=== PATIENT | male | born 1950 | race Two or more races ===

== ENCOUNTER 2016-11-23 21:27 | Inpatient (IN) | payer MEDICARE, MEDICAID ==
[~2016-11-23] VITALS: Ht 165.1 cm; Wt 79.4 kg
[2016-11-23] MEDS ORDERED: Acetaminophen 650 MG SUPP RECTAL ONE (21:45)
[2016-11-23] MEDS ORDERED: NS 1000ml 2,200 ML IVLG ONE (21:45)
[2016-11-23 22:00] VITALS: BP 104/58
[2016-11-23 22:07] LABS: ABG ALLEN TEST POSITIVE; ABG BASE EXCESS 3.6; ABG PCO2 37.2 mmHg (35.0-45.0)
[2016-11-23 22:24] LABS: BASOPHILS % (AUTO) 0.6 % (0.0-2.0); EOSINOPHILS % (AUTO) 1.7 % (0.0-3.0); LYMPHOCYTES % (AUTO) 9.8 % (20.0-45.0); MEAN CORPUSCULAR HEMOGLOBIN 34.7 PG (27.0-31.0); MEAN CORPUSCULAR HGB CONC 33.7 G/DL (32.0-36.0); MEAN CORPUSCULAR VOLUME 103 FL (80-99); MEAN PLATELET VOLUME 7.1 FL (6.5-10.1); MONOCYTES % (AUTO) 4.7 % (1.0-10.0); NEUTROPHILS % (AUTO) 83.2 % (45.0-75.0); PLATELET COUNT 330 K/UL (150-450); RED BLOOD COUNT 3.84 M/UL (4.70-6.10); RED CELL DISTRIBUTION WIDTH 12.7 % (11.6-14.8); WHITE BLOOD COUNT 9.4 K/UL (4.8-10.8)
[2016-11-23 22:29] LABS: TROPONIN I < 0.30 ng/mL (<=0.30)
[2016-11-23] MEDS ORDERED: Piperacillin/Tazobactam 4.5 GM in NS 110 ML IVPB ONE (22:30)
[2016-11-23 22:31] LABS: INR 1.1 (0.9-1.1); PROTHROMBIN TIME 11.7 SEC (9.30-11.50)
[2016-11-23 22:32] LABS: ALANINE AMINOTRANSFERASE 20 U/L (3-41); ALBUMIN/GLOBULIN RATIO 0.5 (1.0-2.7); ANION GAP 13 (5-15); ASPARTATE AMINO TRANSFERASE 29 U/L (5-40); CALCIUM 7.9 mg/dL (8.6-10.2); CARBON DIOXIDE 28 mEQ/L (20-30); CHLORIDE 106 mEQ/L (98-107); CREATININE 0.8 mg/dL (0.7-1.2); GLOMERULAR FILTRATION RATE > 60 mL/min (>60); HEMOLYSIS 4; POTASSIUM 3.8 mEQ/L (3.4-4.9); SODIUM 147 mEQ/L (135-145); TOTAL PROTEIN 6.1 g/dL (6.6-8.7)
[2016-11-23 22:35] LABS: REFLEX LACTIC ACID YES OR NO YES
[2016-11-23 22:42] LABS: CKMB < 1.5 ng/mL (< 6.7)
[2016-11-23 22:47] LABS: APPEARANCE,URINE CLEAR; KETONES,URINE NEGATIVE (NEGATIVE); LEUKOCYTE ESTERASE ,URINE NEGATIVE (NEGATIVE); NITRITE,URINE NEGATIVE (NEGATIVE); PH,URINE 7 (4.5-8.0); PROTEIN,URINE 2+ (NEGATIVE); UROBILINOGEN,URINE 1 MG/DL (0.0-1.0)
[2016-11-23] MEDS ORDERED: Zosyn 4.5gm inj ONE (23:08)
[2016-11-23 23:17] LABS: BACTERIA,URINE FEW /HPF; SQUAMOUS EPITHELIAL CELL,UR FEW /LPF (NONE/OCC)
[2016-11-23] MEDS ORDERED: ARTIFICIAL TEA1 EAC3 OP (23:19)
[2016-11-23] MEDS ORDERED: NORVASC2.5 MG ORAL (23:19)
[2016-11-23] MEDS ORDERED: VENTOLIN HFA18 GM INH (23:19)
[2016-11-23 23:30] VITALS: BP 140/77
[2016-11-23] MEDS ORDERED: ARTIFICIAL TEAR15 M2 OP (23:43)
[2016-11-24] VITALS (7 sets, daily range): BP systolic 115–171; BP diastolic 65–89
--- NOTE | 2016-11-24 00:43 | Emergency Room Report ---
History of Present Illness General Chief Complaint: Dyspnea/Respdistress Source: EMS Present Illness HPI Is a 66-year-old male has multiple medical problem. He had a previous tracheostomy and G-tube placement. He resided in a skilled nursing. He present with fever and respiratory distress. Per EMS, he had a fever 105 and was hypoxic. They gave him breathing treatment and sent him here. Denies any trauma. Unable to get history from patient because is nonverbal. No other complaint. Allergies: Coded Allergies: No Known Allergies (Unverified , 11/23/16) Patient History Past Medical History: see triage record, old chart reviewed Past Surgical History: other Pertinent Family History: none Social History: Denies: smoking Immunizations: other Reviewed Nursing Documentation: PMH: Agreed, PSxH: Agreed Nursing Documentation-PMH Past Medical History: No History, Except For Hx Hypertension: Yes Hx Seizures: Yes - Epilepsy, post traumatic seizure Review of Systems Constitutional: Reports: weakness Eye: Denies: blurred vision, eye pain ENT: Denies: ear pain, nose congestion, throat swelling Respiratory: Reports: cough, shortness of breath Cardiovascular: Denies: chest pain, palpitations Gastrointestinal: Denies: abdominal pain, diarrhea, nausea, vomiting Musculoskeletal: Denies: back pain, joint pain Skin: Denies: rash Neurological: Denies: headache, numbness Endocrine: Denies: increased thirst, increased urine Hematologic/Lymphatic: Denies: easy bruising All Other Systems: limited - Secondary to condition Physical Exam Vital Signs Date Time Temp Pulse Resp B/P Pulse Ox O2 Delivery O2 Flow Rate FiO2 11/23/16 21:24 105.1 124 20 136/83 96 Non-Rebreather 15.0 vitals with fever and tachycardia Sp02 EP Interpretation: abnormal General Appearance: moderate distress, lethargic, Chronically Ill Head: normocephalic, atraumatic Eyes: bilateral eye EOMI, bilateral eye PERRL ENT: dry mucus membranes Neck: full range of motion, supple, no meningismus, other - Greenish thick discharge from stoma Respiratory: chest non-tender, respiratory distress, accessory muscle use, crackles Cardiovascular #1: regular rate, rhythm, no murmur Gastrointestinal: normal bowel sounds, non tender, no mass, no organomegaly, no bruit, non-distended, other - Gtube intact. site no redness. Musculoskeletal: back normal, other - contracted Psychiatric: mood/affect normal Skin: warm/dry Procedures Critical Care Time Critical Care Time Critical care is mandated in this patient who presented with severe sepsis secondary to pneumonia. Patient require my urgent intervention to attenuate the risks of metabolic collapse which may lead to cardiovascular collapse and . Critical care time is 35 minutes excluding any reportable procedure. Critical care time included evaluation, multiple reevaluation, looking at old charts, interpreting laboratory and diagnostic data, discussing case with patient and family and consultants, and charting. Medical Decision Making Diagnostic Impression: Primary Impression: Severe sepsis Additional Impressions: Pneumonia Qualified Codes: J18.9 - Pneumonia, unspecified organism Respiratory failure with hypoxia Qualified Codes: J96.21 - Acute and chronic respiratory failure with hypoxia UTI (urinary tract infection) Qualified Codes: N30.00 - Acute cystitis without hematuria Proteinuria Hyperglycemia due to type 2 diabetes mellitus Qualified Codes: E11.65 - Type 2 diabetes mellitus with hyperglycemia; Z79.4 - [facility] (current) use of insulin ER Course Patient presents with severe sepsis secondary to pneumonia. Potential aspiration. Probably some component of mucus plugging. Lactic acid improved after IV fluid. Mental status improving. Patient be admitted to telemetry. Other differentials included but not limited to ACS, PE, dissection, influenza name a few. Lab Results Impression past with elevated glucose and lactic acid EKG Diagnostic Results Rate: normal, tachycardiac Rhythm: NSR ST Segments: no acute changes Rhythm Strip Diag. Results EP Interpretation: yes Rate: 105 Rhythm: NSR, no PVC's, no ectopy Chest X-Ray Diagnostic Results EP Interpretation: Yes Findings: no effusion, no pneumothorax, other - rt sided opacification. Number of Views: 1 Last Vital Signs Date Time Temp Pulse Resp B/P Pulse Ox O2 Delivery O2 Flow Rate FiO2 11/23/16 22:37 101.6 11/23/16 22:00 109 38 Nasal Cannula 5.0 11/23/16 22:00 104/58 100 Status: improved Disposition: ADMITTED INPATIENT Condition: Serious Referrals: DEREJE CASTANO (PCP) REFUGIO CARTER M.D. Nov 24, 2016 00:43
[2016-11-24] MEDS ORDERED: CARBAMAZEP100 MG/5 M (03:34)
[2016-11-24] MEDS ORDERED: Zolpidem 5mg tab ORAL PRN (04:00)
[2016-11-24] MEDS ORDERED: Zosyn 3.375gm inj ONE (04:57)
[2016-11-24] MEDS ORDERED: Vancomycin 1gm inj IVPB ONE (04:57)
[2016-11-24] MEDS: Vancomycin 1250mg in D5W 275ml IVPB SCH ×2 (05:23→17:07)
[2016-11-24] MEDS ORDERED: Piperacillin/Tazobactam 3.375 GM in D5W 110 ML IVPB SCH ×2 (06:00→07:00)
[2016-11-24] MEDS: Albuterol 90mcg Inhaler 8gm INH SCH ×3 (06:00→18:00)
--- NOTE | 2016-11-24 08:41 | Consultation ---
Consult Note Consult Note dictated DEREJE CASTANO Nov 24, 2016 08:41
[2016-11-24] MEDS: Artificial Tears 1.4% Op Soln BOTH EYES SCH ×2 (09:00→21:59)
[2016-11-24] MEDS: Heparin 5000 units/ml inj SUBQ SCH ×2 (09:01→21:59)
[2016-11-24 09:37] LABS: BASOPHILS % (AUTO) 0.6 % (0.0-2.0); EOSINOPHILS % (AUTO) 1.1 % (0.0-3.0); LYMPHOCYTES % (AUTO) 11.9 % (20.0-45.0); MEAN CORPUSCULAR HEMOGLOBIN 34.7 PG (27.0-31.0); MEAN CORPUSCULAR HGB CONC 33.5 G/DL (32.0-36.0); MEAN CORPUSCULAR VOLUME 104 FL (80-99); MEAN PLATELET VOLUME 7.1 FL (6.5-10.1); MONOCYTES % (AUTO) 5.7 % (1.0-10.0); NEUTROPHILS % (AUTO) 80.7 % (45.0-75.0); PLATELET COUNT 359 K/UL (150-450); RED BLOOD COUNT 3.93 M/UL (4.70-6.10); RED CELL DISTRIBUTION WIDTH 12.9 % (11.6-14.8); WHITE BLOOD COUNT 11.2 K/UL (4.8-10.8)
[2016-11-24 09:47] LABS: ANION GAP 13 (5-15); CALCIUM 7.2 mg/dL (8.6-10.2); CARBON DIOXIDE 26 mEQ/L (20-30); CHLORIDE 112 mEQ/L (98-107); CREATININE 0.7 mg/dL (0.7-1.2); GLOMERULAR FILTRATION RATE > 60 mL/min (>60); HEMOLYSIS 2; POTASSIUM 3.8 mEQ/L (3.4-4.9); SODIUM 151 mEQ/L (135-145)
[2016-11-24] MEDS ORDERED: Sterile Water Irrig 1000ml IRRIG ONE (15:40)
[2016-11-24] MEDS ORDERED: NS 275ml ONE (15:40)
[2016-11-24] MEDS ORDERED: Tubing IV Secondary IV ONE (15:40)
[2016-11-24] MEDS: Zosyn 3.375gm q8h **Extended infusion IVPB SCH ×2 (18:05)
--- NOTE | 2016-11-24 20:38 | Consultation ---
DATE OF CONSULTATION: 11/24/2016 PULMONARY CONSULTATION REFERRING PHYSICIAN: Romero Cerrato M.D. REASON FOR CONSULTATION: Pneumonia, history of respiratory failure. HISTORY OF PRESENT ILLNESS: This is a 66-year-old male chronically debilitated patient on G-tube feeding presented with very high fevers over at the [facility] facility. The patient care noted and could not be stablized at the SNF and therefore transferred for further evaluation. He was noted to have pneumonia and congestion. I have been admitted with the diagnosis, also with questionable diagnosis of sepsis. The patient is nonverbal, unable to give much in the way of history. The patient was stabilized and admitted to the floor. The patient was started on antibiotics prior to transfer. The patient has multiple medical problems and medical issues as described. PAST MEDICAL HISTORY: Notable for history of tracheostomy removed, history of G-tube, history of aspiration, chronic encephalopathy, chronic debility, history of seizure disorder, posttraumatic seizures as well. The patient is chronically with confusion and alteration in mental status. The patient also with history of hypertension. MEDICATIONS: Reviewed. ALLERGIES: Reviewed. SOCIAL HISTORY: Disabled and unemployed. Resides in [facility]. FAMILY HISTORY: Unobtainable. REVIEW OF SYSTEMS: Unobtainable. PHYSICAL EXAMINATION: GENERAL: The patient is a well-developed male, chronically ill, chronically debilitated. VITAL SIGNS: T-max of 101.6, heart rate 115, respiratory rate 24, blood pressure 151/89, and saturation 93% on four liters. HEENT: Normocephalic and atraumatic. Pupils are sluggish. NECK: Supple. LUNGS: Scattered rhonchi. Moderate air entry. CARDIAC: S1 and S2. Somewhat tachycardic. The patient without murmurs, rubs, or gallops. ABDOMEN: Otherwise soft, nontender, and nondistended. EXTREMITIES: No cyanosis, clubbing, or edema. NEUROLOGIC: Grossly nonfocal. LABORATORY DATA: Laboratory rata reviewed. Medications reviewed. White count 9.4, hematocrit 39.6, and platelets of 330,000. In the morning, chemistries are noted. Sodium 147, BUN 17, creatinine 0.8, blood sugar is 283. Lactic acid 2.7. IMPRESSIONS: 1. Pneumonia. 2. Respiratory insufficiency. 3. Hypertension. 4. Sinus tachycardia without fevers. 5. Possible sepsis. 6. Lactic acidemia. 7. History of seizures. 8. History of chronic encephalopathy. RECOMMENDATIONS: 1. Respiratory care, maintain nebulized therapy. 2. IV hydration. 3. IV antibiotics. 4. ID evaluation. 5. Follow up x-ray. 6. Follow up exam. 7. Followup laboratories. 8. Followup cultures. 9. Stabilize DVT prophylaxis in order perceive discharge planning once improved. Rosendo Wilson M.D. DR: UZMA JOB#: [id number] CC: VAIBHAV
[2016-11-24] MEDS ORDERED: NovoLOG Insulin Flexpen SUBQ SCH ×2 (21:15→22:00)
[2016-11-24] MEDS ORDERED: Zosyn 3.375gm q8h **Extended infusion IVPB SCH ×2 (22:00)
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
[2016-11-25] VITALS: BP 120/63
[2016-11-25] MEDS: Albuterol 90mcg Inhaler 8gm INH SCH
[2016-11-25] MEDS: Zosyn 3.375gm q8h **Extended infusion IVPB SCH ×6 (01:05→18:31)
[2016-11-25] MEDS: DuoNeb 0.5-3(2.5)mg/3ml neb HHN SCH ×4 (01:26→19:35)
[2016-11-25 04:00] VITALS: BP 123/62
[2016-11-25] MEDS: Vancomycin 1250mg in D5W 275ml IVPB SCH ×2 (05:30→16:39)
[2016-11-25] MEDS: NovoLOG Insulin Flexpen SUBQ SCH ×3 (06:18→18:33)
--- NOTE | 2016-11-25 06:53 | General Progress Note ---
Assessment/Plan Problem List: (1) Respiratory failure with hypoxia ICD Codes: J96.91 - Respiratory failure, unspecified with hypoxia SNOMED: 25122988448183014 Qualifiers: Qualified Codes: J96.21 - Acute and chronic respiratory failure with hypoxia (2) Pneumonia ICD Codes: J18.9 - Pneumonia, unspecified organism SNOMED: 899322685 Qualifiers: Qualified Codes: J18.9 - Pneumonia, unspecified organism (3) UTI (urinary tract infection) ICD Codes: N39.0 - Urinary tract infection, site not specified SNOMED: 30676431 Qualifiers: Qualified Codes: N30.00 - Acute cystitis without hematuria (4) Severe sepsis ICD Codes: A41.9 - Sepsis, unspecified organism; R65.20 - Severe sepsis without septic shock SNOMED: 33019873 Status: stable Assessment/Plan ivf adjusted monitior bs iv abx follow up cultures suctioning/resp rx sz rx gt feeds Subjective ROS Limited/Unobtainable: Yes Constitutional: Reports: malaise, weakness HEENT: Reports: no symptoms Cardiovascular: Reports: no symptoms Respiratory: Reports: cough, shortness of breath, sputum Gastrointestinal/Abdominal: Reports: difficulty swallowing Genitourinary: Reports: no symptoms Neurologic/Psychiatric: Reports: pre-existing deficit, seizure Endocrine: Reports: no symptoms Hematologic/Lymphatic: Reports: anemia Allergies: Coded Allergies: No Known Allergies (Unverified , 11/23/16) All Systems: reviewed and negative except above Subjective no events. remains congested. bloody thick secretions. d/w rt at the bedside. on iv abx Objective Last 24 Hour Vital Signs Date Time Temp Pulse Resp B/P Pulse Ox O2 Delivery O2 Flow Rate FiO2 11/25/16 06:45 96 22 95 Nasal Cannula 5.0 11/25/16 06:44 95 Nasal Cannula 5.0 11/25/16 06:43 Nasal Cannula 5.0 11/25/16 06:35 94 22 94 Nasal Cannula 5.0 11/25/16 04:00 93 11/25/16 04:00 97.9 94 18 123/62 95 Nasal Cannula 5.0 11/25/16 01:34 99 22 96 Nasal Cannula 5.0 40 11/25/16 01:24 40 11/25/16 01:22 100 24 96 Nasal Cannula 5.0 40 11/25/16 00:00 105 11/25/16 00:00 98.2 112 18 120/63 95 Nasal Cannula 5.0 11/24/16 20:08 Nasal Cannula 5.0 40 11/24/16 20:08 94 Nasal Cannula 5.0 40 11/24/16 20:06 Nasal Cannula 11/24/16 20:04 116 28 94 Nasal Cannula 5.0 40 11/24/16 20:00 114 11/24/16 20:00 99.9 112 18 140/87 Nasal Cannula 5.0 93 11/24/16 16:00 106 11/24/16 16:00 68 18 171/76 Nasal Cannula 2.0 90 11/24/16 12:26 103 21 Nasal Cannula 5.0 11/24/16 12:23 103 21 94 Nasal Cannula 40 11/24/16 12:20 103 21 88 Nasal Cannula 40 11/24/16 12:11 99.1 109 22 127/72 96 Nasal Cannula 4.0 11/24/16 12:00 108 11/24/16 09:59 99.3 11/24/16 09:00 115 151/89 11/24/16 08:33 101.5 115 24 151/89 93 Nasal Cannula 4.0 11/24/16 08:00 116 11/24/16 07:51 113 33 Nasal Cannula 5.0 Intake and Output 11/24/16 11/25/16 19:00 07:00 Intake Total 838.708 ml 1712.492 ml Output Total 300 ml 1200 ml Balance 538.708 ml 512.492 ml Intake Free Water 250 ml IV Total 583.708 ml 967.492 ml Tube Feeding 255 ml 495 ml Output Urine Total 300 ml 1200 ml Laboratory Tests 11/24/16 09:20: White Blood Count 11.2H, Red Blood Count 3.93L, Hemoglobin 13.7L, Hematocrit 40.8L, Mean Corpuscular Volume 104H, Mean Corpuscular Hemoglobin 34.7H, Mean Corpuscular Hemoglobin Concent 33.5, Red Cell Distribution Width 12.9, Platelet Count 359, Mean Platelet Volume 7.1, Neutrophils (%) (Auto) 80.7H, Lymphocytes ( %) (Auto) 11.9L, Monocytes (%) (Auto) 5.7, Eosinophils (%) (Auto) 1.1, Basophils (%) (Auto) 0.6, Sodium Level 151H, Potassium Level 3.8, Chloride Level 112H, Carbon Dioxide Level 26, Anion Gap 13, Blood Urea Nitrogen 13, Creatinine 0.7, Estimat Glomerular Filtration Rate > 60, Glucose Level 179#H, Calcium Level 7.2L Height (Feet): 5 Height (Inches): 8.00 Weight (Pounds): 175 General Appearance: WD/WN, confused Neck: supple Cardiovascular: regular rhythm Respiratory/Chest: crackles/rales, rhonchi - bilaterally Abdomen: normal bowel sounds, non tender, soft, no organomegaly Edema: no edema noted Arm (L), no edema noted Arm (R), no edema noted Leg (L), no edema noted Leg (R), no edema noted Pedal (L), no edema noted Pedal (R), no edema noted Generalized Skin: warm/dry DESMOND GARCIA Nov 25, 2016 06:53
[2016-11-25 08:00] VITALS: BP 125/66
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
[2016-11-25] MEDS: Artificial Tears 1.4% Op Soln BOTH EYES SCH ×2 (08:41→21:06)
[2016-11-25] MEDS: Heparin 5000 units/ml inj SUBQ SCH ×2 (08:44→21:08)
--- NOTE | 2016-11-25 08:46 | Pulmonology Progress Note ---
Assessment/Plan Assessment/Plan IMPRESSIONS: 1. Pneumonia. 2. Respiratory insufficiency. 3. Hypertension. 4. Sinus tachycardia without fevers. 5. Possible sepsis. 6. Lactic acidemia. 7. History of seizures. 8. History of chronic encephalopathy. PLAN care noted IV antibiotics respiratory care will follow up and recommend monitor for change discuss with may want hospice impression, plan, and exam edited and reviewed in detail care discussed with RN Subjective Allergies: Coded Allergies: No Known Allergies (Unverified , 11/23/16) Subjective improved on NC oxygen Objective Last 24 Hour Vital Signs Date Time Temp Pulse Resp B/P Pulse Ox O2 Delivery O2 Flow Rate FiO2 11/25/16 06:45 96 22 95 Nasal Cannula 5.0 11/25/16 06:44 95 Nasal Cannula 5.0 11/25/16 06:43 Nasal Cannula 5.0 11/25/16 06:35 94 22 94 Nasal Cannula 5.0 11/25/16 04:00 93 11/25/16 04:00 97.9 94 18 123/62 95 Nasal Cannula 5.0 11/25/16 01:34 99 22 96 Nasal Cannula 5.0 40 11/25/16 01:24 40 11/25/16 01:22 100 24 96 Nasal Cannula 5.0 40 11/25/16 00:00 105 11/25/16 00:00 98.2 112 18 120/63 95 Nasal Cannula 5.0 11/24/16 20:08 Nasal Cannula 5.0 40 11/24/16 20:08 94 Nasal Cannula 5.0 40 11/24/16 20:06 Nasal Cannula 11/24/16 20:04 116 28 94 Nasal Cannula 5.0 40 11/24/16 20:00 114 11/24/16 20:00 99.9 112 18 140/87 Nasal Cannula 5.0 93 11/24/16 16:00 106 11/24/16 16:00 68 18 171/76 Nasal Cannula 2.0 90 11/24/16 12:26 103 21 Nasal Cannula 5.0 11/24/16 12:23 103 21 94 Nasal Cannula 40 11/24/16 12:20 103 21 88 Nasal Cannula 40 11/24/16 12:11 99.1 109 22 127/72 96 Nasal Cannula 4.0 11/24/16 12:00 108 11/24/16 09:59 99.3 11/24/16 09:00 115 151/89 Intake and Output 11/24/16 11/25/16 19:00 07:00 Intake Total 838.708 ml 1712.492 ml Output Total 300 ml 1200 ml Balance 538.708 ml 512.492 ml Intake Free Water 250 ml IV Total 583.708 ml 967.492 ml Tube Feeding 255 ml 495 ml Output Urine Total 300 ml 1200 ml Objective GENERAL: The patient is a well-developed male, chronically ill, chronically debilitated. HEENT: Normocephalic and atraumatic. Pupils are sluggish. NECK: Supple. LUNGS: Scattered rhonchi. Moderate air entry. slightly improved CARDIAC: S1 and S2. RRR The patient without murmurs, rubs, or gallops. ABDOMEN: Otherwise soft, nontender, and nondistended. EXTREMITIES: No cyanosis, clubbing, or edema. NEUROLOGIC: Grossly nonfocal. Microbiology Date/Time Source Procedure Growth Status 11/23/16 22:00 Blood Blood Culture - Preliminary NO GROWTH AFTER 24 HOURS Resulted 11/23/16 21:45 Blood Blood Culture - Preliminary NO GROWTH AFTER 24 HOURS Resulted 11/23/16 21:09 Other Gram Stain - Final Resulted 11/23/16 21:09 Wound Culture - Preliminary Gram Negative Bacillus 1 Resulted 11/23/16 22:22 Nasal Nares Left Influenza Types A,B Antigen (YAQUELIN) - Final Complete Laboratory Tests 11/24/16 09:20: White Blood Count 11.2H, Red Blood Count 3.93L, Hemoglobin 13.7L, Hematocrit 40.8L, Mean Corpuscular Volume 104H, Mean Corpuscular Hemoglobin 34.7H, Mean Corpuscular Hemoglobin Concent 33.5, Red Cell Distribution Width 12.9, Platelet Count 359, Mean Platelet Volume 7.1, Neutrophils (%) (Auto) 80.7H, Lymphocytes ( %) (Auto) 11.9L, Monocytes (%) (Auto) 5.7, Eosinophils (%) (Auto) 1.1, Basophils (%) (Auto) 0.6, Sodium Level 151H, Potassium Level 3.8, Chloride Level 112H, Carbon Dioxide Level 26, Anion Gap 13, Blood Urea Nitrogen 13, Creatinine 0.7, Estimat Glomerular Filtration Rate > 60, Glucose Level 179#H, Calcium Level 7.2L Current Medications Medications (Trade) Dose Ordered Sig/Pierre Route PRN Reason Start Time Stop Time Status Last Admin Dose Admin Acetaminophen (Tylenol) 650 mg Q4H PRN ORAL Mild Pain/Temp > 100.5 11/24/16 04:00 12/24/16 03:59 11/24/16 22:19 Al Hydroxide/Mg Hydroxide 30 ml 30 ml Q4HR PRN ORAL Per rx protocol 11/24/16 04:00 12/24/16 03:59 Albuterol/ Ipratropium (DuoNeb 0.5-3(2.5)mg/3ml) 3 ml Q6HRT HHN 11/25/16 01:00 11/30/16 00:59 11/25/16 06:44 Amlodipine Besylate (Norvasc) 2.5 mg DAILY ORAL 11/24/16 09:00 12/24/16 08:59 11/24/16 09:00 Artificial Tears (Akwa-Tears) 2 drop Q12HR BOTH EYES 11/24/16 09:00 12/24/16 08:59 11/24/16 21:59 Dextrose (D5W 1000ml) 1,000 ml @ 75 mls/hr [id number] IV 11/25/16 07:00 12/25/16 06:59 11/25/16 07:13 Dextrose (Dextrose 50%) STAT PRN IV Hypoglycemia 11/24/16 21:15 12/24/16 21:14 Heparin Sodium (Porcine) (Heparin 5000 units/ml) 5,000 units EVERY 12 HOURS SUBQ 11/24/16 09:00 12/24/16 08:59 11/24/16 21:59 Insulin Aspart Q6HR SUBQ 11/25/16 06:00 12/25/16 05:59 11/25/16 06:18 Pantoprazole (Protonix) 40 mg DAILY ORAL 11/24/16 09:00 12/24/16 08:59 11/24/16 09:00 Piperacillin Sod/ Tazobactam Sod/ Dextrose (Zosyn/D5W) 110 ml @ 27.5 mls/hr TID@0100,0900,1800 IVPB 11/24/16 18:00 12/01/16 17:59 11/25/16 01:05 Vancomycin HCl (Vanco rx to dose) 1 ea DAILY MISC 11/24/16 09:00 12/24/16 08:59 Vancomycin HCl 1.25 gm/Dextrose 275 ml @ 183.708 mls/hr Q12H IVPB 11/24/16 05:00 11/29/16 04:59 11/25/16 05:30 Zolpidem Tartrate (Ambien) 10 mg HSPRN PRN ORAL Insomnia 11/24/16 04:00 12/24/16 03:59 DEREJE CASTANO Nov 25, 2016 08:46
[2016-11-25] MEDS ORDERED: DuoNeb 0.5-3(2.5)mg/3ml neb HHN SCH (09:00)
--- NOTE | 2016-11-25 10:42 | Infectious Diseases Prog Note ---
Assessment/Plan Assessment/Plan antibiotics : vancomycin iv, zosyn A 1. pneumonia 2. respiratory failure 3. DM P 1. continue vancomycin iv, zosyn 2. will follow up cultures Subjective ROS Limited/Unobtainable: Yes Allergies: Coded Allergies: No Known Allergies (Unverified , 11/23/16) Objective Vital Signs Last 24 Hour Vital Signs Date Time Temp Pulse Resp B/P Pulse Ox O2 Delivery O2 Flow Rate FiO2 11/25/16 08:42 92 123/66 11/25/16 08:00 98.4 92 24 125/66 98 Nasal Cannula 2.0 11/25/16 08:00 98.4 92 24 125/66 98 Nasal Cannula 2.0 11/25/16 08:00 93 11/25/16 06:45 96 22 95 Nasal Cannula 5.0 11/25/16 06:44 95 Nasal Cannula 5.0 11/25/16 06:43 Nasal Cannula 5.0 11/25/16 06:35 94 22 94 Nasal Cannula 5.0 11/25/16 04:00 93 11/25/16 04:00 97.9 94 18 123/62 95 Nasal Cannula 5.0 11/25/16 01:34 99 22 96 Nasal Cannula 5.0 40 11/25/16 01:24 40 11/25/16 01:22 100 24 96 Nasal Cannula 5.0 40 11/25/16 00:00 105 11/25/16 00:00 98.2 112 18 120/63 95 Nasal Cannula 5.0 11/24/16 20:08 Nasal Cannula 5.0 40 11/24/16 20:08 94 Nasal Cannula 5.0 40 11/24/16 20:06 Nasal Cannula 11/24/16 20:04 116 28 94 Nasal Cannula 5.0 40 11/24/16 20:00 114 11/24/16 20:00 99.9 112 18 140/87 Nasal Cannula 5.0 93 11/24/16 16:00 106 11/24/16 16:00 68 18 171/76 Nasal Cannula 2.0 90 11/24/16 12:26 103 21 Nasal Cannula 5.0 11/24/16 12:23 103 21 94 Nasal Cannula 40 11/24/16 12:20 103 21 88 Nasal Cannula 40 11/24/16 12:11 99.1 109 22 127/72 96 Nasal Cannula 4.0 11/24/16 12:00 108 Height (Feet): 5 Height (Inches): 8.00 Weight (Pounds): 175 Respiratory/Chest: lungs clear Cardiovascular: normal rate, regular rhythm, no gallop/murmur Abdomen: soft, non tender, other - GT Extremities: no edema Microbiology Date/Time Source Procedure Growth Status 11/23/16 22:00 Blood Blood Culture - Preliminary NO GROWTH AFTER 24 HOURS Resulted 11/23/16 21:45 Blood Blood Culture - Preliminary NO GROWTH AFTER 24 HOURS Resulted 11/23/16 21:09 Other Gram Stain - Final Resulted 11/23/16 21:09 Wound Culture - Preliminary Gram Negative Bacillus 1 Resulted 11/23/16 22:22 Nasal Nares Left Influenza Types A,B Antigen (YAQUELIN) - Final Complete HELDER ZAMORA Nov 25, 2016 10:42
[2016-11-25 12:00] VITALS: BP 120/62
[2016-11-25 16:00] VITALS: BP 123/74
[2016-11-25] MEDS ORDERED: Vancomycin 1.5 GM/D5W 325 ML IVPB SCH ×2 (19:00)
[2016-11-25 20:00] VITALS: BP 122/76
[2016-11-26] VITALS: BP 129/75
[2016-11-26] MEDS: NovoLOG Insulin Flexpen SUBQ SCH ×4 (00:04→17:19)
[2016-11-26] MEDS: Zosyn 3.375gm q8h **Extended infusion IVPB SCH ×4 (01:02→09:40)
[2016-11-26] MEDS: DuoNeb 0.5-3(2.5)mg/3ml neb HHN SCH ×4 (01:17→19:31)
[2016-11-26 04:00] VITALS: BP 138/75
[2016-11-26] MEDS ORDERED: Vancomycin 1.5 GM/D5W 325 ML IVPB SCH ×2 (05:00)
[2016-11-26 07:52] LABS: ALANINE AMINOTRANSFERASE 36 U/L (3-41); ALBUMIN/GLOBULIN RATIO 0.4 (1.0-2.7); ANION GAP 16 (5-15); ASPARTATE AMINO TRANSFERASE 66 U/L (5-40); CALCIUM 8.1 mg/dL (8.6-10.2); CARBON DIOXIDE 30 mEQ/L (20-30); CHLORIDE 106 mEQ/L (98-107); CREATININE 0.7 mg/dL (0.7-1.2); GLOMERULAR FILTRATION RATE > 60 mL/min (>60); HEMOLYSIS 3; POTASSIUM 3.8 mEQ/L (3.4-4.9); SODIUM 152 mEQ/L (135-145); TOTAL PROTEIN 5.9 g/dL (6.6-8.7)
[2016-11-26 08:00] VITALS: BP 152/71
--- NOTE | 2016-11-26 09:01 | General Progress Note ---
Assessment/Plan Problem List: (1) Respiratory failure with hypoxia ICD Codes: J96.91 - Respiratory failure, unspecified with hypoxia SNOMED: [id number] Qualifiers: Qualified Codes: J96.21 - Acute and chronic respiratory failure with hypoxia (2) Pneumonia ICD Codes: J18.9 - Pneumonia, unspecified organism SNOMED: 465508319 Qualifiers: Qualified Codes: J18.9 - Pneumonia, unspecified organism (3) UTI (urinary tract infection) ICD Codes: N39.0 - Urinary tract infection, site not specified SNOMED: 17189036 Qualifiers: Qualified Codes: N30.00 - Acute cystitis without hematuria (4) Severe sepsis ICD Codes: A41.9 - Sepsis, unspecified organism; R65.20 - Severe sepsis without septic shock SNOMED: 87277515 Status: stable, progressing Assessment/Plan ivf adjusted increase water flushes monitior bs iv abx follow up cultures suctioning/resp rx sz rx gt feeds Subjective ROS Limited/Unobtainable: Yes Constitutional: Reports: malaise, weakness HEENT: Reports: no symptoms Cardiovascular: Reports: no symptoms Respiratory: Reports: cough, sputum Gastrointestinal/Abdominal: Reports: difficulty swallowing Genitourinary: Reports: no symptoms Neurologic/Psychiatric: Reports: pre-existing deficit, seizure Endocrine: Reports: no symptoms Hematologic/Lymphatic: Reports: no symptoms Allergies: Coded Allergies: No Known Allergies (Unverified , 11/23/16) All Systems: reviewed and negative except above Subjective no events. remains congested- but less than yesterday. tolerating feeds. soft stools. Objective Last 24 Hour Vital Signs Date Time Temp Pulse Resp B/P Pulse Ox O2 Delivery O2 Flow Rate FiO2 11/26/16 08:00 98.1 89 20 152/71 96 Nasal Cannula 2.0 11/26/16 04:00 93 11/26/16 04:00 98.2 93 18 138/75 95 Nasal Cannula 2.0 11/26/16 01:25 99 20 98 Nasal Cannula 5.0 40 11/26/16 01:17 98 20 96 Nasal Cannula 5.0 40 11/26/16 00:00 93 11/26/16 00:00 98.4 94 18 129/75 96 Nasal Cannula 2.0 11/25/16 20:00 98.4 105 20 122/76 Nasal Cannula 2.0 100 11/25/16 19:43 88 20 98 Nasal Cannula 5.0 40 11/25/16 19:35 95 Nasal Cannula 5.0 11/25/16 19:35 92 20 95 Nasal Cannula 5.0 40 11/25/16 19:35 Nasal Cannula 5.0 40 11/25/16 19:02 92 11/25/16 16:00 98.2 83 19 123/74 Nasal Cannula 2.0 84 11/25/16 15:18 90 11/25/16 12:22 95 22 94 Nasal Cannula 5.0 11/25/16 12:12 97 22 94 Nasal Cannula 5.0 11/25/16 12:00 98.2 88 22 120/62 98 Nasal Cannula 2.0 11/25/16 12:00 98.2 88 22 120/62 98 Nasal Cannula 2.0 11/25/16 12:00 95 Intake and Output 11/25/16 11/26/16 19:00 07:00 Intake Total 1508.7 ml 2127.5 ml Output Total 350 ml 1100 ml Balance 1158.7 ml 1027.5 ml Intake Free Water 250 ml 500 ml IV Total 818.7 ml 747.5 ml Tube Feeding 440 ml 880 ml Output Urine Total 350 ml 1100 ml # Bowel Movements 5 1 Laboratory Tests 11/25/16 16:20: Vancomycin Level Trough 10.2 11/26/16 05:35: Sodium Level 152H, Potassium Level 3.8, Chloride Level 106, Carbon Dioxide Level 30, Anion Gap 16H, Blood Urea Nitrogen 10, Creatinine 0.7, Estimat Glomerular Filtration Rate > 60, Glucose Level 197H, Calcium Level 8.1L, Total Bilirubin 0.2, Aspartate Amino Transf (AST/SGOT) 66H, Alanine Aminotransferase ( ALT/SGPT) 36, Alkaline Phosphatase 130H, Total Protein 5.9L, Albumin 1.9L, Globulin 4.0, Albumin/Globulin Ratio 0.4L Height (Feet): 5 Height (Inches): 8.00 Weight (Pounds): 175 Objective General Appearance: WD/WN, confused Neck: supple Cardiovascular: regular rhythm Respiratory/Chest: crackles/rales, rhonchi - bilaterally Abdomen: normal bowel sounds, non tender, soft, no organomegaly Edema: no edema noted Arm (L), no edema noted Arm (R), no edema noted Leg (L), no edema noted Leg (R), no edema noted Pedal (L), no edema noted Pedal (R), no edema noted Generalized Skin: warm/dry DESMOND GARCIA Nov 26, 2016 09:01
[2016-11-26] MEDS: Heparin 5000 units/ml inj SUBQ SCH ×2 (09:41→20:30)
[2016-11-26] MEDS: Artificial Tears 1.4% Op Soln BOTH EYES SCH ×2 (10:25→20:30)
--- NOTE | 2016-11-26 11:02 | Infectious Diseases Prog Note ---
Assessment/Plan Assessment/Plan antibiotics : vancomycin iv, zosyn A 1. pneumonia 2. proteus UTI 3. DM P 1. d/c vancomycin iv, zosyn 2. start ertapenem 3. will follow up cultures Subjective ROS Limited/Unobtainable: Yes Allergies: Coded Allergies: No Known Allergies (Unverified , 11/23/16) Objective Vital Signs Last 24 Hour Vital Signs Date Time Temp Pulse Resp B/P Pulse Ox O2 Delivery O2 Flow Rate FiO2 11/26/16 09:40 89 152/71 11/26/16 08:00 98.1 89 20 152/71 96 Nasal Cannula 2.0 11/26/16 04:00 93 11/26/16 04:00 98.2 93 18 138/75 95 Nasal Cannula 2.0 11/26/16 01:25 99 20 98 Nasal Cannula 5.0 40 11/26/16 01:17 98 20 96 Nasal Cannula 5.0 40 11/26/16 00:00 93 11/26/16 00:00 98.4 94 18 129/75 96 Nasal Cannula 2.0 11/25/16 20:00 98.4 105 20 122/76 Nasal Cannula 2.0 100 11/25/16 19:43 88 20 98 Nasal Cannula 5.0 40 11/25/16 19:35 95 Nasal Cannula 5.0 11/25/16 19:35 92 20 95 Nasal Cannula 5.0 40 11/25/16 19:35 Nasal Cannula 5.0 40 11/25/16 19:02 92 11/25/16 16:00 98.2 83 19 123/74 Nasal Cannula 2.0 84 11/25/16 15:18 90 11/25/16 12:22 95 22 94 Nasal Cannula 5.0 11/25/16 12:12 97 22 94 Nasal Cannula 5.0 11/25/16 12:00 98.2 88 22 120/62 98 Nasal Cannula 2.0 11/25/16 12:00 98.2 88 22 120/62 98 Nasal Cannula 2.0 11/25/16 12:00 95 Height (Feet): 5 Height (Inches): 8.00 Weight (Pounds): 175 Respiratory/Chest: rhonchi - bilaterally Cardiovascular: normal rate, regular rhythm, no gallop/murmur Abdomen: soft, non tender, other - GT Extremities: no edema Microbiology Date/Time Source Procedure Growth Status 11/23/16 22:00 Blood Blood Culture - Preliminary NO GROWTH AFTER 48 HOURS Resulted 11/23/16 21:45 Blood Blood Culture - Preliminary NO GROWTH AFTER 48 HOURS Resulted 11/23/16 21:09 Other Gram Stain - Final Resulted 11/23/16 21:09 Wound Culture - Preliminary Proteus Mirabilis Esbl Resulted 11/23/16 22:23 Nasal Nares MRSA Culture - Final NO METHICILLIN RESISTANT STAPH AUREUS... Complete 11/23/16 22:22 Nasal Nares Left Influenza Types A,B Antigen (YAQUELIN) - Final Complete 11/23/16 22:23 Stool VRE Culture - Final NO VANCOMYCIN RESISTANT ENTEROCOCCUS ... Complete 11/25/16 09:30 Neck Gram Stain - Final Resulted 11/25/16 09:30 Neck Wound Culture - Preliminary Resulted Laboratory Tests Test 11/25/16 16:20 11/26/16 05:35 Vancomycin Level Trough 10.2 ug/mL (5.0-12.0) Sodium Level 152 mEQ/L (135-145) H Potassium Level 3.8 mEQ/L (3.4-4.9) Chloride Level 106 mEQ/L (98-107) Carbon Dioxide Level 30 mEQ/L (20-30) Anion Gap 16 (5-15) H Blood Urea Nitrogen 10 mg/dL (7-23) Creatinine 0.7 mg/dL (0.7-1.2) Estimat Glomerular Filtration Rate > 60 mL/min (>60) Glucose Level 197 mg/dL (74-106) H Calcium Level 8.1 mg/dL (8.6-10.2) L Total Bilirubin 0.2 mg/dL (0.0-1.2) Aspartate Amino Transf (AST/SGOT) 66 U/L (5-40) H Alanine Aminotransferase (ALT/SGPT) 36 U/L (3-41) Alkaline Phosphatase 130 U/L (40-129) H Total Protein 5.9 g/dL (6.6-8.7) L Albumin 1.9 g/dL (3.5-5.2) L Globulin 4.0 g/dL Albumin/Globulin Ratio 0.4 (1.0-2.7) L HELDER ZAMORA Nov 26, 2016 11:02
[2016-11-26 12:14] VITALS: BP 135/73
[2016-11-26] MEDS ORDERED: Ertapenem 1 GM in NS 55 ML IVPB SCH (13:00)
--- NOTE | 2016-11-26 16:03 | Pulmonology Progress Note ---
Assessment/Plan Assessment/Plan IMPRESSIONS: 1. Pneumonia. 2. Respiratory insufficiency. 3. Hypertension. 4. Sinus tachycardia without fevers. 5. Possible sepsis. 6. Lactic acidemia. 7. History of seizures. 8. History of chronic encephalopathy. 9. hypernatremia PLAN care noted hypotonic fluids recheck lytes IV antibiotics respiratory care will follow up and recommend monitor for change transition to PO antibiotics soon may want hospice impression, plan, and exam edited and reviewed in detail care discussed with RN Subjective Allergies: Coded Allergies: No Known Allergies (Unverified , 11/23/16) Subjective same on NC oxygen poor LOC Objective Last 24 Hour Vital Signs Date Time Temp Pulse Resp B/P Pulse Ox O2 Delivery O2 Flow Rate FiO2 11/26/16 12:14 100.0 95 20 135/73 97 Nasal Cannula 2.0 11/26/16 12:06 98.8 11/26/16 12:00 94 11/26/16 09:40 89 152/71 11/26/16 08:00 88 11/26/16 08:00 98.1 89 20 152/71 96 Nasal Cannula 2.0 11/26/16 07:30 96 Nasal Cannula 5.0 40 11/26/16 07:30 88 20 96 Nasal Cannula 5.0 40 11/26/16 07:30 Nasal Cannula 5.0 40 11/26/16 07:30 90 20 98 Nasal Cannula 5.0 40 11/26/16 04:00 93 11/26/16 04:00 98.2 93 18 138/75 95 Nasal Cannula 2.0 11/26/16 01:25 99 20 98 Nasal Cannula 5.0 40 11/26/16 01:17 98 20 96 Nasal Cannula 5.0 40 11/26/16 00:00 93 11/26/16 00:00 98.4 94 18 129/75 96 Nasal Cannula 2.0 11/25/16 20:00 98.4 105 20 122/76 Nasal Cannula 2.0 100 11/25/16 19:43 88 20 98 Nasal Cannula 5.0 40 11/25/16 19:35 95 Nasal Cannula 5.0 11/25/16 19:35 92 20 95 Nasal Cannula 5.0 40 11/25/16 19:35 Nasal Cannula 5.0 40 11/25/16 19:02 92 Intake and Output 11/25/16 11/26/16 19:00 07:00 Intake Total 1508.7 ml 2127.5 ml Output Total 350 ml 1100 ml Balance 1158.7 ml 1027.5 ml Intake Free Water 250 ml 500 ml IV Total 818.7 ml 747.5 ml Tube Feeding 440 ml 880 ml Output Urine Total 350 ml 1100 ml # Bowel Movements 5 1 Objective GENERAL: The patient is a well-developed male, chronically ill, chronically debilitated. HEENT: Normocephalic and atraumatic. Pupils are sluggish. NECK: Supple. LUNGS: Scattered rhonchi. Moderate air entry. slightly improved CARDIAC: S1 and S2. RRR The patient without murmurs, rubs, or gallops. ABDOMEN: Otherwise soft, nontender, and nondistended. EXTREMITIES: No cyanosis, clubbing, or edema. NEUROLOGIC: Grossly nonfocal. Microbiology Date/Time Source Procedure Growth Status 11/23/16 22:00 Blood Blood Culture - Preliminary NO GROWTH AFTER 48 HOURS Resulted 11/23/16 21:45 Blood Blood Culture - Preliminary NO GROWTH AFTER 48 HOURS Resulted 11/23/16 21:09 Other Gram Stain - Final Resulted 11/23/16 21:09 Wound Culture - Preliminary Proteus Mirabilis Esbl Resulted 11/23/16 22:23 Nasal Nares MRSA Culture - Final NO METHICILLIN RESISTANT STAPH AUREUS... Complete 11/23/16 22:22 Nasal Nares Left Influenza Types A,B Antigen (YAQUELIN) - Final Complete 11/23/16 22:23 Stool VRE Culture - Final NO VANCOMYCIN RESISTANT ENTEROCOCCUS ... Complete 11/25/16 09:30 Neck Gram Stain - Final Resulted 11/25/16 09:30 Neck Wound Culture - Preliminary Resulted Laboratory Tests 11/25/16 16:20: Vancomycin Level Trough 10.2 11/26/16 05:35: Sodium Level 152H, Potassium Level 3.8, Chloride Level 106, Carbon Dioxide Level 30, Anion Gap 16H, Blood Urea Nitrogen 10, Creatinine 0.7, Estimat Glomerular Filtration Rate > 60, Glucose Level 197H, Calcium Level 8.1L, Total Bilirubin 0.2, Aspartate Amino Transf (AST/SGOT) 66H, Alanine Aminotransferase ( ALT/SGPT) 36, Alkaline Phosphatase 130H, Total Protein 5.9L, Albumin 1.9L, Globulin 4.0, Albumin/Globulin Ratio 0.4L Current Medications Medications (Trade) Dose Ordered Sig/Pierre Route PRN Reason Start Time Stop Time Status Last Admin Dose Admin Acetaminophen (Tylenol) 650 mg Q4H PRN ORAL Mild Pain/Temp > 100.5 11/24/16 04:00 12/24/16 03:59 11/26/16 11:07 Al Hydroxide/Mg Hydroxide (Mylanta) 30 ml Q4HR PRN ORAL Per rx protocol 11/24/16 04:00 12/24/16 03:59 Albuterol/ Ipratropium (DuoNeb 0.5-3(2.5)mg/3ml) 3 ml Q6HRT HHN 11/25/16 01:00 11/30/16 00:59 11/26/16 13:17 Amlodipine Besylate (Norvasc) 2.5 mg DAILY ORAL 11/24/16 09:00 12/24/16 08:59 11/26/16 09:40 Artificial Tears (Akwa-Tears) 2 drop Q12HR BOTH EYES 11/24/16 09:00 12/24/16 08:59 11/26/16 10:25 Dextrose 1,000 ml @ 75 mls/hr [id number] IV 11/25/16 07:00 12/25/16 06:59 11/26/16 09:46 Dextrose (Dextrose 50%) STAT PRN IV Hypoglycemia 11/24/16 21:15 12/24/16 21:14 Ertapenem/Sodium Chloride (INVanz/Sodium Chloride) 110 ml @ 220 mls/hr Q24H IVPB 11/27/16 13:00 12/01/16 12:59 Heparin Sodium (Porcine) (Heparin 5000 units/ml) 5,000 units EVERY 12 HOURS SUBQ 11/24/16 09:00 12/24/16 08:59 11/26/16 09:41 Insulin Aspart Q6HR SUBQ 11/25/16 06:00 12/25/16 05:59 11/26/16 12:30 Pantoprazole (Protonix) 40 mg DAILY ORAL 11/24/16 09:00 12/24/16 08:59 11/26/16 09:39 Zolpidem Tartrate (Ambien) 10 mg HSPRN PRN ORAL Insomnia 11/24/16 04:00 12/24/16 03:59 DEREJE CASTANOb 11, 2017 16:03
[2016-11-26 16:10] VITALS: BP 112/65
[2016-11-26] MEDS ORDERED: Tubing IV Secondary IV ONE (16:55)
[2016-11-26] MEDS ORDERED: Sterile Water Irrig 1000ml IRRIG ONE (16:55)
[2016-11-26 20:00] VITALS: BP 119/74
[2016-11-27 00:25] VITALS: BP 134/75
[2016-11-27] MEDS: DuoNeb 0.5-3(2.5)mg/3ml neb HHN SCH ×3 (00:40→19:00)
[2016-11-27] MEDS: NovoLOG Insulin Flexpen SUBQ SCH ×4 (01:11→17:15)
[2016-11-27 04:25] VITALS: BP 119/79
[2016-11-27 07:23] LABS: ALANINE AMINOTRANSFERASE 52 U/L (3-41); ALBUMIN/GLOBULIN RATIO 0.4 (1.0-2.7); ANION GAP 14 (5-15); ASPARTATE AMINO TRANSFERASE 82 U/L (5-40); CALCIUM 8.3 mg/dL (8.6-10.2); CARBON DIOXIDE 30 mEQ/L (20-30); CHLORIDE 101 mEQ/L (98-107); CREATININE 0.7 mg/dL (0.7-1.2); GLOMERULAR FILTRATION RATE > 60 mL/min (>60); HEMOLYSIS 9; POTASSIUM 3.4 mEQ/L (3.4-4.9); SODIUM 145 mEQ/L (135-145); TOTAL PROTEIN 6.5 g/dL (6.6-8.7)
--- NOTE | 2016-11-27 07:57 | Pulmonology Progress Note ---
Assessment/Plan Assessment/Plan IMPRESSIONS: 1. Pneumonia. 2. Respiratory insufficiency. 3. Hypertension. 4. Sinus tachycardia without fevers. 5. Possible sepsis. 6. Lactic acidemia. 7. History of seizures. 8. History of chronic encephalopathy. 9. hypernatremia PLAN care noted hypotonic fluids; may dc in am labs noted and reviewed IV antibiotics noted respiratory care will follow up and recommend monitor for change follow up chest XR today transition to PO antibiotics soon may want hospice per if improving, will dc to SNF in am impression, plan, and exam edited and reviewed in detail care discussed with RN Subjective Allergies: Coded Allergies: No Known Allergies (Unverified , 11/23/16) Subjective comfortable on NC oxygen poor LOC Objective Last 24 Hour Vital Signs Date Time Temp Pulse Resp B/P Pulse Ox O2 Delivery O2 Flow Rate FiO2 11/27/16 04:25 99.7 102 20 119/79 97 Nasal Cannula 2.0 11/27/16 04:00 101 11/27/16 00:35 101 20 96 Nasal Cannula 5.0 40 11/27/16 00:30 103 20 94 Nasal Cannula 5.0 40 11/27/16 00:25 98.0 98 20 134/75 96 Nasal Cannula 2.0 11/27/16 00:00 105 11/26/16 20:00 89 11/26/16 20:00 98.2 89 20 119/74 94 Room Air 11/26/16 19:20 91 20 97 Nasal Cannula 5.0 40 11/26/16 19:15 90 20 95 Nasal Cannula 5.0 40 11/26/16 19:15 95 Nasal Cannula 5.0 40 11/26/16 19:15 Nasal Cannula 5.0 40 11/26/16 16:10 98.2 96 20 112/65 97 Nasal Cannula 4.0 11/26/16 16:00 92 11/26/16 13:30 92 20 96 Nasal Cannula 5.0 40 11/26/16 13:30 96 20 98 Nasal Cannula 5.0 40 11/26/16 12:14 100.0 95 20 135/73 97 Nasal Cannula 2.0 11/26/16 12:06 98.8 11/26/16 12:00 94 11/26/16 09:40 89 152/71 11/26/16 08:00 88 11/26/16 08:00 98.1 89 20 152/71 96 Nasal Cannula 2.0 Intake and Output 11/26/16 11/27/16 19:00 07:00 Intake Total 1100 ml 1105 ml Output Total 400 ml 600 ml Balance 700 ml 505 ml Intake Free Water 150 ml 300 ml IV Total 675 ml 750 ml Tube Feeding 275 ml 55 ml Output Urine Total 400 ml 600 ml # Bowel Movements 1 3 Objective GENERAL: The patient is a well-developed male, chronically ill, chronically debilitated. reduced LOC HEENT: Normocephalic and atraumatic. Pupils are sluggish. NECK: Supple. LUNGS: reduced rhonchi. Moderate air entry. slightly improved CARDIAC: S1 and S2. RRR The patient without murmurs, rubs, or gallops. ABDOMEN: Otherwise soft, nontender, and nondistended. GT EXTREMITIES: No cyanosis, clubbing, or edema. NEUROLOGIC: Grossly nonfocal. Microbiology Date/Time Source Procedure Growth Status 11/25/16 09:30 Neck Gram Stain - Final Resulted 11/25/16 09:30 Neck Wound Culture - Preliminary Resulted Laboratory Tests 11/27/16 04:30: Sodium Level 145, Potassium Level 3.4, Chloride Level 101, Carbon Dioxide Level 30, Anion Gap 14, Blood Urea Nitrogen 9, Creatinine 0.7, Estimat Glomerular Filtration Rate > 60, Glucose Level 201H, Calcium Level 8.3L, Total Bilirubin 0.3, Aspartate Amino Transf (AST/SGOT) 82H, Alanine Aminotransferase (ALT/SGPT) 52H, Alkaline Phosphatase 143H, Total Protein 6.5L, Albumin 2.1L, Globulin 4.4, Albumin/Globulin Ratio 0.4L Current Medications Medications (Trade) Dose Ordered Sig/Pierre Route PRN Reason Start Time Stop Time Status Last Admin Dose Admin Acetaminophen (Tylenol) 650 mg Q4H PRN ORAL Mild Pain/Temp > 100.5 11/24/16 04:00 12/24/16 03:59 11/26/16 11:07 Al Hydroxide/Mg Hydroxide (Mylanta) 30 ml Q4HR PRN ORAL Per rx protocol 11/24/16 04:00 12/24/16 03:59 Albuterol/ Ipratropium (DuoNeb 0.5-3(2.5)mg/3ml) 3 ml Q6HRT HHN 11/25/16 01:00 11/30/16 00:59 11/27/16 00:40 Amlodipine Besylate (Norvasc) 2.5 mg DAILY ORAL 11/24/16 09:00 12/24/16 08:59 11/26/16 09:40 Artificial Tears (Akwa-Tears) 2 drop Q12HR BOTH EYES 11/24/16 09:00 12/24/16 08:59 11/26/16 20:30 Dextrose 1,000 ml @ 75 mls/hr [id number] IV 11/25/16 07:00 12/25/16 06:59 11/27/16 01:06 Dextrose (Dextrose 50%) STAT PRN IV Hypoglycemia 11/24/16 21:15 12/24/16 21:14 Ertapenem/Sodium Chloride (INVanz/Sodium Chloride) 110 ml @ 220 mls/hr Q24H IVPB 11/27/16 13:00 12/01/16 12:59 Heparin Sodium (Porcine) (Heparin 5000 units/ml) 5,000 units EVERY 12 HOURS SUBQ 11/24/16 09:00 12/24/16 08:59 11/26/16 20:30 Insulin Aspart Q6HR SUBQ 11/25/16 06:00 12/25/16 05:59 11/27/16 05:09 Pantoprazole (Protonix) 40 mg DAILY ORAL 11/24/16 09:00 12/24/16 08:59 11/26/16 09:39 Zolpidem Tartrate (Ambien) 10 mg HSPRN PRN ORAL Insomnia 11/24/16 04:00 12/24/16 03:59 DEREJE CASTANO Nov 27, 2016 07:57
[2016-11-27 08:03] VITALS: BP 144/82
--- NOTE | 2016-11-27 08:23 | General Progress Note ---
Assessment/Plan Problem List: (1) Respiratory failure with hypoxia ICD Codes: J96.91 - Respiratory failure, unspecified with hypoxia SNOMED: 62831407162268602 Qualifiers: Qualified Codes: J96.21 - Acute and chronic respiratory failure with hypoxia (2) Pneumonia ICD Codes: J18.9 - Pneumonia, unspecified organism SNOMED: 993870946 Qualifiers: Qualified Codes: J18.9 - Pneumonia, unspecified organism (3) UTI (urinary tract infection) ICD Codes: N39.0 - Urinary tract infection, site not specified SNOMED: 99010567 Qualifiers: Qualified Codes: N30.00 - Acute cystitis without hematuria (4) Severe sepsis ICD Codes: A41.9 - Sepsis, unspecified organism; R65.20 - Severe sepsis without septic shock SNOMED: 52285996 Status: stable, progressing Assessment/Plan ivf adjusted water flushes monitior bs iv abx follow up cultures suctioning/resp rx sz rx gt feeds replace k repeat labs in am tylenol for fever Subjective ROS Limited/Unobtainable: Yes Constitutional: Reports: fever, malaise, weakness HEENT: Reports: no symptoms Cardiovascular: Reports: no symptoms Respiratory: Reports: cough, sputum Gastrointestinal/Abdominal: Reports: difficulty swallowing Genitourinary: Reports: no symptoms Neurologic/Psychiatric: Reports: pre-existing deficit, seizure Endocrine: Reports: no symptoms Hematologic/Lymphatic: Reports: anemia Allergies: Coded Allergies: No Known Allergies (Unverified , 11/23/16) All Systems: reviewed and negative except above Subjective no events. remains congested- but less than yesterday. tolerating feeds. soft stools. poorly responsive at baseline. low grade temp last night. low k Objective Last 24 Hour Vital Signs Date Time Temp Pulse Resp B/P Pulse Ox O2 Delivery O2 Flow Rate FiO2 11/27/16 08:04 100 20 96 Nasal Cannula 5.0 40 11/27/16 08:03 100.2 96 20 144/82 97 Nasal Cannula 4.0 11/27/16 07:23 94 Nasal Cannula 5.0 40 11/27/16 07:23 Nasal Cannula 5.0 40 11/27/16 07:23 99 20 94 Nasal Cannula 5.0 40 11/27/16 04:25 99.7 102 20 119/79 97 Nasal Cannula 2.0 11/27/16 04:00 101 11/27/16 00:35 101 20 96 Nasal Cannula 5.0 40 11/27/16 00:30 103 20 94 Nasal Cannula 5.0 40 11/27/16 00:25 98.0 98 20 134/75 96 Nasal Cannula 2.0 11/27/16 00:00 105 11/26/16 20:00 89 11/26/16 20:00 98.2 89 20 119/74 94 Room Air 11/26/16 19:20 91 20 97 Nasal Cannula 5.0 40 11/26/16 19:15 90 20 95 Nasal Cannula 5.0 40 11/26/16 19:15 95 Nasal Cannula 5.0 40 11/26/16 19:15 Nasal Cannula 5.0 40 11/26/16 16:10 98.2 96 20 112/65 97 Nasal Cannula 4.0 11/26/16 16:00 92 11/26/16 13:30 92 20 96 Nasal Cannula 5.0 40 11/26/16 13:30 96 20 98 Nasal Cannula 5.0 40 11/26/16 12:14 100.0 95 20 135/73 97 Nasal Cannula 2.0 11/26/16 12:06 98.8 11/26/16 12:00 94 11/26/16 09:40 89 152/71 Intake and Output 11/26/16 11/27/16 19:00 07:00 Intake Total 1100 ml 1105 ml Output Total 400 ml 600 ml Balance 700 ml 505 ml Intake Free Water 150 ml 300 ml IV Total 675 ml 750 ml Tube Feeding 275 ml 55 ml Output Urine Total 400 ml 600 ml # Bowel Movements 1 3 Laboratory Tests 11/27/16 04:30: Sodium Level 145, Potassium Level 3.4, Chloride Level 101, Carbon Dioxide Level 30, Anion Gap 14, Blood Urea Nitrogen 9, Creatinine 0.7, Estimat Glomerular Filtration Rate > 60, Glucose Level 201H, Calcium Level 8.3L, Total Bilirubin 0.3, Aspartate Amino Transf (AST/SGOT) 82H, Alanine Aminotransferase (ALT/SGPT) 52H, Alkaline Phosphatase 143H, Total Protein 6.5L, Albumin 2.1L, Globulin 4.4, Albumin/Globulin Ratio 0.4L Height (Feet): 5 Height (Inches): 8.00 Weight (Pounds): 175 Objective General Appearance: WD/WN, confused Neck: supple Cardiovascular: regular rhythm Respiratory/Chest: crackles/rales, rhonchi - bilaterally Abdomen: normal bowel sounds, non tender, soft, no organomegaly Edema: no edema noted Arm (L), no edema noted Arm (R), no edema noted Leg (L), no edema noted Leg (R), no edema noted Pedal (L), no edema noted Pedal (R), no edema noted Generalized Skin: warm/dry DESMOND GARCIA Nov 27, 2016 08:23
[2016-11-27] MEDS ORDERED: KCl 10% 40mEq/30ml liquid NG ONE (09:00)
[2016-11-27] MEDS: Artificial Tears 1.4% Op Soln BOTH EYES SCH ×2 (09:48→23:00)
[2016-11-27] MEDS: Heparin 5000 units/ml inj SUBQ SCH ×2 (09:50→23:00)
--- NOTE | 2016-11-27 09:59 | Infectious Diseases Prog Note ---
Assessment/Plan Assessment/Plan A: sepsis Pneumonia Elevated transaminase Encephalopathy DM P: continue Ertapenem F/U CBC & CXR Subjective ROS Limited/Unobtainable: Yes Constitutional: Reports: fever, other - Fkuc=[id number] Allergies: Coded Allergies: No Known Allergies (Unverified , 11/23/16) Objective Vital Signs Last 24 Hour Vital Signs Date Time Temp Pulse Resp B/P Pulse Ox O2 Delivery O2 Flow Rate FiO2 11/27/16 09:50 100 144/82 11/27/16 08:04 100 20 96 Nasal Cannula 5.0 40 11/27/16 08:03 100.2 96 20 144/82 97 Nasal Cannula 4.0 11/27/16 07:23 94 Nasal Cannula 5.0 40 11/27/16 07:23 Nasal Cannula 5.0 40 11/27/16 07:23 99 20 94 Nasal Cannula 5.0 40 11/27/16 04:25 99.7 102 20 119/79 97 Nasal Cannula 2.0 11/27/16 04:00 101 11/27/16 00:35 101 20 96 Nasal Cannula 5.0 40 11/27/16 00:30 103 20 94 Nasal Cannula 5.0 40 11/27/16 00:25 98.0 98 20 134/75 96 Nasal Cannula 2.0 11/27/16 00:00 105 11/26/16 20:00 89 11/26/16 20:00 98.2 89 20 119/74 94 Room Air 11/26/16 19:20 91 20 97 Nasal Cannula 5.0 40 11/26/16 19:15 90 20 95 Nasal Cannula 5.0 40 11/26/16 19:15 95 Nasal Cannula 5.0 40 11/26/16 19:15 Nasal Cannula 5.0 40 11/26/16 16:10 98.2 96 20 112/65 97 Nasal Cannula 4.0 11/26/16 16:00 92 11/26/16 13:30 92 20 96 Nasal Cannula 5.0 40 11/26/16 13:30 96 20 98 Nasal Cannula 5.0 40 11/26/16 12:14 100.0 95 20 135/73 97 Nasal Cannula 2.0 11/26/16 12:06 98.8 11/26/16 12:00 94 Height (Feet): 5 Height (Inches): 8.00 Weight (Pounds): 175 HEENT: other - blindness, O2 by cannula, decreased secretions from tracheostomy site Respiratory/Chest: other - decreased sounds in R lung, rhonchi in left side Cardiovascular: normal rate Abdomen: soft, non tender, other - GT feeding Extremities: no edema Neurologic/Psychiatric: unresponsiveness Microbiology Date/Time Source Procedure Growth Status 11/25/16 09:30 Neck Gram Stain - Final Resulted 11/25/16 09:30 Neck Wound Culture - Preliminary Resulted Laboratory Tests Test 11/27/16 04:30 Sodium Level 145 mEQ/L (135-145) Potassium Level 3.4 mEQ/L (3.4-4.9) Chloride Level 101 mEQ/L (98-107) Carbon Dioxide Level 30 mEQ/L (20-30) Anion Gap 14 (5-15) Blood Urea Nitrogen 9 mg/dL (7-23) Creatinine 0.7 mg/dL (0.7-1.2) Estimat Glomerular Filtration Rate > 60 mL/min (>60) Glucose Level 201 mg/dL (74-106) H Calcium Level 8.3 mg/dL (8.6-10.2) L Total Bilirubin 0.3 mg/dL (0.0-1.2) Aspartate Amino Transf (AST/SGOT) 82 U/L (5-40) H Alanine Aminotransferase (ALT/SGPT) 52 U/L (3-41) H Alkaline Phosphatase 143 U/L (40-129) H Total Protein 6.5 g/dL (6.6-8.7) L Albumin 2.1 g/dL (3.5-5.2) L Globulin 4.4 g/dL Albumin/Globulin Ratio 0.4 (1.0-2.7) L Current Medications Medications (Trade) Dose Ordered Sig/Pierre Route PRN Reason Start Time Stop Time Status Last Admin Dose Admin Acetaminophen (Tylenol) 650 mg Q4H PRN ORAL Mild Pain/Temp > 100.5 11/24/16 04:00 12/24/16 03:59 11/26/16 11:07 Al Hydroxide/Mg Hydroxide (Mylanta) 30 ml Q4HR PRN ORAL Per rx protocol 11/24/16 04:00 12/24/16 03:59 Albuterol/ Ipratropium (DuoNeb 0.5-3(2.5)mg/3ml) 3 ml Q6HRT HHN 11/25/16 01:00 11/30/16 00:59 11/27/16 08:02 Amlodipine Besylate (Norvasc) 2.5 mg DAILY ORAL 11/24/16 09:00 12/24/16 08:59 11/27/16 09:50 Artificial Tears (Akwa-Tears) 2 drop Q12HR BOTH EYES 11/24/16 09:00 12/24/16 08:59 11/27/16 09:48 Dextrose 1,000 ml @ 75 mls/hr [id number] IV 11/25/16 07:00 12/25/16 06:59 11/27/16 01:06 Dextrose (Dextrose 50%) STAT PRN IV Hypoglycemia 11/24/16 21:15 12/24/16 21:14 Ertapenem/Sodium Chloride (INVanz/Sodium Chloride) 110 ml @ 220 mls/hr Q24H IVPB 11/27/16 13:00 12/01/16 12:59 Heparin Sodium (Porcine) (Heparin 5000 units/ml) 5,000 units EVERY 12 HOURS SUBQ 11/24/16 09:00 12/24/16 08:59 11/27/16 09:50 Insulin Aspart Q6HR SUBQ 11/25/16 06:00 12/25/16 05:59 11/27/16 05:09 Pantoprazole (Protonix) 40 mg DAILY ORAL 11/24/16 09:00 12/24/16 08:59 11/27/16 09:50 Zolpidem Tartrate (Ambien) 10 mg HSPRN PRN ORAL Insomnia 11/24/16 04:00 12/24/16 03:59 REINALDO HUTCHINSON Nov 27, 2016 09:59
[2016-11-27 11:27] VITALS: BP 141/84
--- NOTE | 2016-11-27 12:03 | Diagnostic Imaging Report ---
Clinical history: Shortness of breath Technique: Portable AP chest radiograph was obtained. Comparison: 11/23/16. Findings: There is near complete opacification of the right hemithorax likely due to a large right pleural effusion with adjacent atelectasis or consolidation from pneumonia. Consider chest CT as clinically warranted. There is otherwise no significant interval change in the interval, allowing for differences in technique and positioning. Impression: Near complete opacification of the right hemithorax likely due to a large right pleural effusion with adjacent atelectasis or consolidation. Consider chest CT as clinically warranted.
[2016-11-27] MEDS: Ertapenem 1 GM in NS 110 ML IVPB SCH (13:27)
[2016-11-27 16:29] VITALS: BP 122/76
[2016-11-27] MEDS ORDERED: Tubing IV Secondary IV ONE (17:41)
[2016-11-27 20:00] VITALS: BP 147/80
[2016-11-28 00:10] VITALS: BP 141/90
[2016-11-28] MEDS: DuoNeb 0.5-3(2.5)mg/3ml neb HHN SCH ×4 (01:00→19:00)
[2016-11-28] MEDS: NovoLOG Insulin Flexpen SUBQ SCH ×5 (01:04→23:57)
[2016-11-28 04:12] VITALS: BP 153/87
[2016-11-28 07:32] LABS: BASOPHILS % (AUTO) 0.4 % (0.0-2.0); EOSINOPHILS % (AUTO) 2.1 % (0.0-3.0); LYMPHOCYTES % (AUTO) 20.4 % (20.0-45.0); MEAN CORPUSCULAR HEMOGLOBIN 34.6 PG (27.0-31.0); MEAN CORPUSCULAR HGB CONC 34.7 G/DL (32.0-36.0); MEAN CORPUSCULAR VOLUME 100 FL (80-99); MEAN PLATELET VOLUME 7.3 FL (6.5-10.1); MONOCYTES % (AUTO) 5.2 % (1.0-10.0); NEUTROPHILS % (AUTO) 71.9 % (45.0-75.0); PLATELET COUNT 436 K/UL (150-450); RED BLOOD COUNT 3.72 M/UL (4.70-6.10); RED CELL DISTRIBUTION WIDTH 12.1 % (11.6-14.8)
[2016-11-28 07:39] LABS: ALANINE AMINOTRANSFERASE 41 U/L (3-41); ALBUMIN/GLOBULIN RATIO 0.5 (1.0-2.7); ANION GAP 12 (5-15); ASPARTATE AMINO TRANSFERASE 48 U/L (5-40); CALCIUM 8.4 mg/dL (8.6-10.2); CARBON DIOXIDE 31 mEQ/L (20-30); CHLORIDE 103 mEQ/L (98-107); CREATININE 0.6 mg/dL (0.7-1.2); GLOMERULAR FILTRATION RATE > 60 mL/min (>60); HEMOLYSIS 2; POTASSIUM 3.6 mEQ/L (3.4-4.9); SODIUM 146 mEQ/L (135-145); TOTAL PROTEIN 6.3 g/dL (6.6-8.7)
[2016-11-28 08:00] VITALS: BP 147/86
--- NOTE | 2016-11-28 08:18 | General Progress Note ---
Assessment/Plan Problem List: (1) Respiratory failure with hypoxia ICD Codes: J96.91 - Respiratory failure, unspecified with hypoxia SNOMED: 61639840492453504 Qualifiers: Qualified Codes: J96.21 - Acute and chronic respiratory failure with hypoxia (2) Pneumonia ICD Codes: J18.9 - Pneumonia, unspecified organism SNOMED: 703490261 Qualifiers: Qualified Codes: J18.9 - Pneumonia, unspecified organism (3) UTI (urinary tract infection) ICD Codes: N39.0 - Urinary tract infection, site not specified SNOMED: 19957377 Qualifiers: Qualified Codes: N30.00 - Acute cystitis without hematuria (4) Severe sepsis ICD Codes: A41.9 - Sepsis, unspecified organism; R65.20 - Severe sepsis without septic shock SNOMED: 10632900 Assessment/Plan ivf adjusted water flushes monitior bs iv abx follow up cultures suctioning/resp rx sz rx gt feeds pulm follow- ?tap effusion monitor labs tylenol for fever Subjective ROS Limited/Unobtainable: No Constitutional: Reports: malaise, weakness HEENT: Reports: no symptoms Cardiovascular: Reports: no symptoms Respiratory: Reports: cough, shortness of breath, sputum Gastrointestinal/Abdominal: Reports: no symptoms Genitourinary: Reports: no symptoms Neurologic/Psychiatric: Reports: pre-existing deficit, seizure Endocrine: Reports: no symptoms Hematologic/Lymphatic: Reports: no symptoms Allergies: Coded Allergies: No Known Allergies (Unverified , 11/23/16) All Systems: reviewed and negative except above Subjective no events. remains congested- but less than yesterday. tolerating feeds. soft stools. poorly responsive at baseline. cxr shows near complete opacification of right hemithorax Objective Last 24 Hour Vital Signs Date Time Temp Pulse Resp B/P Pulse Ox O2 Delivery O2 Flow Rate FiO2 11/28/16 04:12 97.7 96 20 153/87 94 Nasal Cannula 2.0 11/28/16 04:00 95 11/28/16 01:38 Nasal Cannula 11/28/16 01:37 Nasal Cannula 11/28/16 00:10 98.2 91 20 141/90 96 Room Air 11/28/16 00:00 91 11/27/16 20:00 99.3 98 19 147/80 95 Nasal Cannula 5.0 11/27/16 20:00 96 11/27/16 19:45 98 21 97 Nasal Cannula 5.0 40 11/27/16 19:40 Nasal Cannula 5.0 40 11/27/16 19:40 94 19 95 Nasal Cannula 5.0 40 11/27/16 19:39 95 Nasal Cannula 5.0 40 11/27/16 16:29 98.4 94 20 122/76 97 Nasal Cannula 4.0 11/27/16 16:00 94 11/27/16 14:25 100 21 97 Nasal Cannula 5.0 40 11/27/16 14:23 98 19 95 Nasal Cannula 5.0 40 11/27/16 12:00 91 11/27/16 11:27 97.9 92 20 141/84 96 Nasal Cannula 4.0 11/27/16 09:50 100 144/82 Intake and Output 11/27/16 11/28/16 19:00 07:00 Intake Total 885 ml 825 ml Output Total 700 ml 2400 ml Balance 185 ml -1575 ml IV Total 885 ml 825 ml Output Urine Total 700 ml 2400 ml # Bowel Movements 3 Laboratory Tests 11/28/16 04:45: White Blood Count 11.0H, Red Blood Count 3.72L, Hemoglobin 12.9L, Hematocrit 37.1L, Mean Corpuscular Volume 100H, Mean Corpuscular Hemoglobin 34.6H, Mean Corpuscular Hemoglobin Concent 34.7, Red Cell Distribution Width 12.1, Platelet Count 436, Mean Platelet Volume 7.3, Neutrophils (%) (Auto) 71.9, Lymphocytes (% ) (Auto) 20.4, Monocytes (%) (Auto) 5.2, Eosinophils (%) (Auto) 2.1, Basophils ( %) (Auto) 0.4, Sodium Level 146H, Potassium Level 3.6, Chloride Level 103, Carbon Dioxide Level 31H, Anion Gap 12, Blood Urea Nitrogen 7, Creatinine 0.6L, Estimat Glomerular Filtration Rate > 60, Glucose Level 173H, Calcium Level 8.4L , Total Bilirubin 0.3, Aspartate Amino Transf (AST/SGOT) 48H, Alanine Aminotransferase (ALT/SGPT) 41, Alkaline Phosphatase 122, Total Protein 6.3L, Albumin 2.3L, Globulin 4.0, Albumin/Globulin Ratio 0.5L Height (Feet): 5 Height (Inches): 8.00 Weight (Pounds): 175 Objective General Appearance: WD/WN, confused Neck: supple Cardiovascular: regular rhythm Respiratory/Chest: crackles/rales, rhonchi - bilaterally Abdomen: normal bowel sounds, non tender, soft, no organomegaly Edema: no edema noted Arm (L), no edema noted Arm (R), no edema noted Leg (L), no edema noted Leg (R), no edema noted Pedal (L), no edema noted Pedal (R), no edema noted Generalized Skin: warm/dry DESMOND GARCIA Nov 28, 2016 08:18
[2016-11-28] MEDS: Artificial Tears 1.4% Op Soln BOTH EYES SCH ×2 (10:36→20:44)
[2016-11-28] MEDS: Heparin 5000 units/ml inj SUBQ SCH ×2 (10:42→20:46)
--- NOTE | 2016-11-28 11:29 | Pulmonology Progress Note ---
Assessment/Plan Assessment/Plan IMPRESSIONS: 1. Pneumonia. 2. Respiratory insufficiency. 3. Hypertension. 4. Sinus tachycardia without fevers. 5. Possible sepsis. 6. Lactic acidemia. 7. History of seizures. 8. History of chronic encephalopathy. 9. hypernatremia 10. pleural effusion PLAN care noted tap effusion hypotonic fluids; sodium still elevated labs noted and reviewed IV antibiotics noted respiratory care follow up chest XR after tap transition to PO antibiotics soon may want hospice per if improving, will dc to SNF in am impression, plan, and exam edited and reviewed in detail care discussed with RN Subjective Allergies: Coded Allergies: No Known Allergies (Unverified , 11/23/16) Subjective comfortable on NC oxygen poor LOC XR noted Objective Last 24 Hour Vital Signs Date Time Temp Pulse Resp B/P Pulse Ox O2 Delivery O2 Flow Rate FiO2 11/28/16 10:37 104 147/86 11/28/16 08:00 102 11/28/16 08:00 99.1 104 20 147/86 95 Nasal Cannula 4.0 11/28/16 07:55 102 21 97 Nasal Cannula 5.0 40 11/28/16 07:40 94 Nasal Cannula 5.0 40 11/28/16 07:40 100 20 94 Nasal Cannula 5.0 40 11/28/16 07:40 40 11/28/16 07:40 Nasal Cannula 5.0 40 11/28/16 04:12 97.7 96 20 153/87 94 Nasal Cannula 2.0 11/28/16 04:00 95 11/28/16 01:38 Nasal Cannula 11/28/16 01:37 Nasal Cannula 11/28/16 00:10 98.2 91 20 141/90 96 Room Air 11/28/16 00:00 91 11/27/16 20:00 99.3 98 19 147/80 95 Nasal Cannula 5.0 11/27/16 20:00 96 11/27/16 19:45 98 21 97 Nasal Cannula 5.0 40 11/27/16 19:40 Nasal Cannula 5.0 40 11/27/16 19:40 94 19 95 Nasal Cannula 5.0 40 11/27/16 19:39 95 Nasal Cannula 5.0 40 11/27/16 16:29 98.4 94 20 122/76 97 Nasal Cannula 4.0 11/27/16 16:00 94 11/27/16 14:25 100 21 97 Nasal Cannula 5.0 40 11/27/16 14:23 98 19 95 Nasal Cannula 5.0 40 11/27/16 12:00 91 Intake and Output 11/27/16 11/28/16 19:00 07:00 Intake Total 885 ml 825 ml Output Total 700 ml 2400 ml Balance 185 ml -1575 ml IV Total 885 ml 825 ml Output Urine Total 700 ml 2400 ml # Bowel Movements 3 Objective GENERAL: The patient is a well-developed male, chronically ill, chronically debilitated. reduced LOC HEENT: Normocephalic and atraumatic. Pupils are sluggish. NECK: Supple. LUNGS: some rhonchi. Moderate air entry. reduced right CARDIAC: S1 and S2. RRR The patient without murmurs, rubs, or gallops. ABDOMEN: Otherwise soft, nontender, and nondistended. GT EXTREMITIES: No cyanosis, clubbing, or edema. NEUROLOGIC: Grossly nonfocal. Laboratory Tests 11/28/16 04:45: White Blood Count 11.0H, Red Blood Count 3.72L, Hemoglobin 12.9L, Hematocrit 37.1L, Mean Corpuscular Volume 100H, Mean Corpuscular Hemoglobin 34.6H, Mean Corpuscular Hemoglobin Concent 34.7, Red Cell Distribution Width 12.1, Platelet Count 436, Mean Platelet Volume 7.3, Neutrophils (%) (Auto) 71.9, Lymphocytes (% ) (Auto) 20.4, Monocytes (%) (Auto) 5.2, Eosinophils (%) (Auto) 2.1, Basophils ( %) (Auto) 0.4, Sodium Level 146H, Potassium Level 3.6, Chloride Level 103, Carbon Dioxide Level 31H, Anion Gap 12, Blood Urea Nitrogen 7, Creatinine 0.6L, Estimat Glomerular Filtration Rate > 60, Glucose Level 173H, Calcium Level 8.4L , Total Bilirubin 0.3, Aspartate Amino Transf (AST/SGOT) 48H, Alanine Aminotransferase (ALT/SGPT) 41, Alkaline Phosphatase 122, Total Protein 6.3L, Albumin 2.3L, Globulin 4.0, Albumin/Globulin Ratio 0.5L Current Medications Medications (Trade) Dose Ordered Sig/Pierre Route PRN Reason Start Time Stop Time Status Last Admin Dose Admin Acetaminophen (Tylenol) 650 mg Q4H PRN ORAL Mild Pain/Temp > 100.5 11/24/16 04:00 12/24/16 03:59 11/26/16 11:07 Al Hydroxide/Mg Hydroxide (Mylanta) 30 ml Q4HR PRN ORAL Per rx protocol 11/24/16 04:00 12/24/16 03:59 Albuterol/ Ipratropium (DuoNeb 0.5-3(2.5)mg/3ml) 3 ml Q6HRT HHN 11/25/16 01:00 11/30/16 00:59 11/28/16 07:40 Amlodipine Besylate (Norvasc) 2.5 mg DAILY ORAL 11/24/16 09:00 12/24/16 08:59 11/28/16 10:37 Artificial Tears (Akwa-Tears) 2 drop Q12HR BOTH EYES 11/24/16 09:00 12/24/16 08:59 11/27/16 23:00 Dextrose 1,000 ml @ 75 mls/hr [id number] IV 11/25/16 07:00 12/25/16 06:59 11/28/16 01:02 Dextrose (Dextrose 50%) STAT PRN IV Hypoglycemia 11/24/16 21:15 12/24/16 21:14 Ertapenem/Sodium Chloride (INVanz/Sodium Chloride) 110 ml @ 220 mls/hr Q24H IVPB 11/27/16 13:00 12/01/16 12:59 11/27/16 13:27 Heparin Sodium (Porcine) (Heparin 5000 units/ml) 5,000 units EVERY 12 HOURS SUBQ 11/24/16 09:00 12/24/16 08:59 11/28/16 10:42 Insulin Aspart Q6HR SUBQ 11/25/16 06:00 12/25/16 05:59 11/28/16 06:43 Pantoprazole (Protonix) 40 mg DAILY ORAL 11/24/16 09:00 12/24/16 08:59 11/28/16 10:37 Zolpidem Tartrate (Ambien) 10 mg HSPRN PRN ORAL Insomnia 11/24/16 04:00 12/24/16 03:59 DEREJE CASTANO Nov 28, 2016 11:29
--- NOTE | 2016-11-28 11:36 | Infectious Diseases Prog Note ---
"Assessment/Plan Assessment/Plan antibiotics : ertapenem A 1. pneumonia 2. proteus | gram negative UTI 3. DM P 1. continue ertapenem 2. will follow up cultures Subjective ROS Limited/Unobtainable: Yes Allergies: Coded Allergies: No Known Allergies (Unverified , 11/23/16) Objective Vital Signs Last 24 Hour Vital Signs Date Time Temp Pulse Resp B/P Pulse Ox O2 Delivery O2 Flow Rate FiO2 11/28/16 10:37 104 147/86 11/28/16 08:00 102 11/28/16 08:00 99.1 104 20 147/86 95 Nasal Cannula 4.0 11/28/16 07:55 102 21 97 Nasal Cannula 5.0 40 11/28/16 07:40 94 Nasal Cannula 5.0 40 11/28/16 07:40 100 20 94 Nasal Cannula 5.0 40 11/28/16 07:40 40 11/28/16 07:40 Nasal Cannula 5.0 40 11/28/16 04:12 97.7 96 20 153/87 94 Nasal Cannula 2.0 11/28/16 04:00 95 11/28/16 01:38 Nasal Cannula 11/28/16 01:37 Nasal Cannula 11/28/16 00:10 98.2 91 20 141/90 96 Room Air 11/28/16 00:00 91 11/27/16 20:00 99.3 98 19 147/80 95 Nasal Cannula 5.0 11/27/16 20:00 96 11/27/16 19:45 98 21 97 Nasal Cannula 5.0 40 11/27/16 19:40 Nasal Cannula 5.0 40 11/27/16 19:40 94 19 95 Nasal Cannula 5.0 40 11/27/16 19:39 95 Nasal Cannula 5.0 40 11/27/16 16:29 98.4 94 20 122/76 97 Nasal Cannula 4.0 11/27/16 16:00 94 11/27/16 14:25 100 21 97 Nasal Cannula 5.0 40 11/27/16 14:23 98 19 95 Nasal Cannula 5.0 40 11/27/16 12:00 91 Height (Feet): 5 Height (Inches): 8.00 Weight (Pounds): 175 Respiratory/Chest: lungs clear Cardiovascular: normal rate, regular rhythm, no gallop/murmur Abdomen: soft, non tender, other - GT Extremities: no edema Laboratory Tests Test 11/28/16 04:45 White Blood Count 11.0 K/UL (4.8-10.8) H Red Blood Count 3.72 M/UL (4.70-6.10) L Hemoglobin 12.9 G/DL (14.2-18.0) L Hematocrit 37.1 % (42.0-52.0) L Mean Corpuscular Volume 100 FL (80-99) H Mean Corpuscular Hemoglobin 34.6 PG (27.0-31.0) H Mean Corpuscular Hemoglobin Concent 34.7 G/DL (32.0-36.0) Red Cell Distribution Width 12.1 % (11.6-14.8) Platelet Count 436 K/UL (150-450) Mean Platelet Volume 7.3 FL (6.5-10.1) Neutrophils (%) (Auto) 71.9 % (45.0-75.0) Lymphocytes (%) (Auto) 20.4 % (20.0-45.0) Monocytes (%) (Auto) 5.2 % (1.0-10.0) Eosinophils (%) (Auto) 2.1 % (0.0-3.0) Basophils (%) (Auto) 0.4 % (0.0-2.0) Sodium Level 146 mEQ/L (135-145) H Potassium Level 3.6 mEQ/L (3.4-4.9) Chloride Level 103 mEQ/L (98-107) Carbon Dioxide Level 31 mEQ/L (20-30) H Anion Gap 12 (5-15) Blood Urea Nitrogen 7 mg/dL (7-23) Creatinine 0.6 mg/dL (0.7-1.2) L Estimat Glomerular Filtration Rate > 60 mL/min (>60) Glucose Level 173 mg/dL (74-106) H Calcium Level 8.4 mg/dL (8.6-10.2) L Total Bilirubin 0.3 mg/dL (0.0-1.2) Aspartate Amino Transf (AST/SGOT) 48 U/L (5-40) H Alanine Aminotransferase (ALT/SGPT) 41 U/L (3-41) Alkaline Phosphatase 122 U/L (40-129) Total Protein 6.3 g/dL (6.6-8.7) L Albumin 2.3 g/dL (3.5-5.2) L Globulin 4.0 g/dL Albumin/Globulin Ratio 0.5 (1.0-2.7) L HELDER ZAMORA Nov 28, 2016 11:36"
[2016-11-28 12:00] VITALS: BP 137/78
[2016-11-28] MEDS: Ertapenem 1 GM in NS 110 ML IVPB SCH (12:28)
[2016-11-28 16:00] VITALS: BP 147/73
--- NOTE | 2016-11-28 17:19 | Diagnostic Imaging Report ---
Indication: Is a thoracentesis Technique: One view of the chest Comparison: none Findings: Again demonstrated is circumferential pleural thickening versus fluid, appearing similar to prior exam. No pneumothorax is evident. Left lung and pleural space remain clear. Heart size is probably normal. Impression: No evidence of pneumothorax, postthoracentesis Unchanged pleural thickening versus fluid. Note that only a small amount of fluid could be aspirated at the time of thoracentesis
[2016-11-28 20:00] VITALS: BP 141/56
[2016-11-29] VITALS: BP 150/81
[2016-11-29] MEDS: DuoNeb 0.5-3(2.5)mg/3ml neb HHN SCH ×4 (01:54→21:26)
[2016-11-29 04:00] VITALS: BP 133/82
--- NOTE | 2016-11-29 05:52 | General Progress Note ---
Assessment/Plan Problem List: (1) Respiratory failure with hypoxia ICD Codes: J96.91 - Respiratory failure, unspecified with hypoxia SNOMED: [id number] Qualifiers: Qualified Codes: J96.21 - Acute and chronic respiratory failure with hypoxia (2) Pneumonia ICD Codes: J18.9 - Pneumonia, unspecified organism SNOMED: [id number] Qualifiers: Qualified Codes: J18.9 - Pneumonia, unspecified organism (3) UTI (urinary tract infection) ICD Codes: N39.0 - Urinary tract infection, site not specified SNOMED: 88042298 Qualifiers: Qualified Codes: N30.00 - Acute cystitis without hematuria (4) Severe sepsis ICD Codes: A41.9 - Sepsis, unspecified organism; R65.20 - Severe sepsis without septic shock SNOMED: 98419444 Status: stable, progressing Assessment/Plan ivf adjusted water flushes monitior bs iv abx follow up cultures suctioning/resp rx thoracentesis sz rx gt feeds pulm follow- monitor labs tylenol for fever Subjective ROS Limited/Unobtainable: Yes Constitutional: Reports: malaise, weakness HEENT: Reports: no symptoms Cardiovascular: Reports: no symptoms Respiratory: Reports: cough, sputum Gastrointestinal/Abdominal: Reports: difficulty swallowing Genitourinary: Reports: no symptoms Neurologic/Psychiatric: Reports: pre-existing deficit Endocrine: Reports: no symptoms Hematologic/Lymphatic: Reports: no symptoms Allergies: Coded Allergies: No Known Allergies (Unverified , 11/23/16) All Systems: reviewed and negative except above Subjective no events. tolerating feeds. soft stools. poorly responsive at baseline. cxr shows near complete opacification of right hemithorax. on ibx. awaiting thoracentesis Objective Last 24 Hour Vital Signs Date Time Temp Pulse Resp B/P Pulse Ox O2 Delivery O2 Flow Rate FiO2 11/29/16 01:58 90 20 98 Nasal Cannula 5.0 40 11/29/16 01:30 80 20 94 Nasal Cannula 5.0 40 11/29/16 00:00 109 11/29/16 00:00 98.4 118 22 150/81 93 Nasal Cannula 11/28/16 20:00 97.0 76 18 141/56 Nasal Cannula 2.0 80 11/28/16 20:00 90 11/28/16 19:30 95 Nasal Cannula 5.0 40 11/28/16 19:30 98 20 96 Nasal Cannula 5.0 40 11/28/16 19:30 99 20 98 Nasal Cannula 5.0 40 11/28/16 19:30 Nasal Cannula 5.0 40 11/28/16 16:00 98.1 91 18 147/73 Nasal Cannula 2.0 83 11/28/16 16:00 90 11/28/16 13:45 100 18 98 Nasal Cannula 4.0 40 11/28/16 13:32 40 11/28/16 13:32 98 18 96 Nasal Cannula 4.0 40 11/28/16 12:00 95 11/28/16 12:00 97.2 99 17 137/78 96 Nasal Cannula 4.0 11/28/16 10:37 104 147/86 11/28/16 08:00 102 11/28/16 08:00 99.1 104 20 147/86 95 Nasal Cannula 4.0 11/28/16 07:55 102 21 97 Nasal Cannula 5.0 40 11/28/16 07:40 94 Nasal Cannula 5.0 40 11/28/16 07:40 100 20 94 Nasal Cannula 5.0 40 11/28/16 07:40 40 11/28/16 07:40 Nasal Cannula 5.0 40 Intake and Output 11/28/16 11/29/16 19:00 07:00 Intake Total 853 ml 450 ml Output Total 650 ml 400 ml Balance 203 ml 50 ml IV Total 853 ml 450 ml Output Urine Total 650 ml 400 ml Height (Feet): 5 Height (Inches): 8.00 Weight (Pounds): 175 Objective General Appearance: WD/WN, confused Neck: supple Cardiovascular: regular rhythm Respiratory/Chest: crackles/rales, rhonchi - bilaterally Abdomen: normal bowel sounds, non tender, soft, no organomegaly Edema: no edema noted Arm (L), no edema noted Arm (R), no edema noted Leg (L), no edema noted Leg (R), no edema noted Pedal (L), no edema noted Pedal (R), no edema noted Generalized Skin: warm/dry DESMOND GARCIA Nov 29, 2016 05:51
[2016-11-29] MEDS: NovoLOG Insulin Flexpen SUBQ SCH ×3 (06:58→18:00)
--- NOTE | 2016-11-29 07:37 | Pulmonology Progress Note ---
Assessment/Plan Assessment/Plan IMPRESSIONS: 1. Pneumonia. 2. Respiratory insufficiency. 3. Hypertension. 4. Sinus tachycardia without fevers. 5. Possible sepsis. 6. Lactic acidemia. 7. History of seizures. 8. History of chronic encephalopathy. 9. hypernatremia 10. pleural effusion PLAN care noted radiology noted hypotonic fluids; sodium still elevated labs noted and reviewed IV antibiotics noted respiratory care follow up chest XR and not improved order CT chest may need thoracic cannot dc at present may want hospice per if improving, will dc to SNF in am impression, plan, and exam edited and reviewed in detail care discussed with RN Subjective Allergies: Coded Allergies: No Known Allergies (Unverified , 11/23/16) Subjective comfortable on NC oxygen poor LOC XR noted and still with significant effusion Objective Last 24 Hour Vital Signs Date Time Temp Pulse Resp B/P Pulse Ox O2 Delivery O2 Flow Rate FiO2 11/29/16 04:00 98.2 105 18 133/82 94 Nasal Cannula 11/29/16 04:00 105 11/29/16 01:58 90 20 98 Nasal Cannula 5.0 40 11/29/16 01:30 80 20 94 Nasal Cannula 5.0 40 11/29/16 00:00 109 11/29/16 00:00 98.4 118 22 150/81 93 Nasal Cannula 11/28/16 20:00 97.0 76 18 141/56 Nasal Cannula 2.0 80 11/28/16 20:00 90 11/28/16 19:30 95 Nasal Cannula 5.0 40 11/28/16 19:30 98 20 96 Nasal Cannula 5.0 40 11/28/16 19:30 99 20 98 Nasal Cannula 5.0 40 11/28/16 19:30 Nasal Cannula 5.0 40 11/28/16 16:00 98.1 91 18 147/73 Nasal Cannula 2.0 83 11/28/16 16:00 90 11/28/16 13:45 100 18 98 Nasal Cannula 4.0 40 11/28/16 13:32 40 11/28/16 13:32 98 18 96 Nasal Cannula 4.0 40 11/28/16 12:00 95 11/28/16 12:00 97.2 99 17 137/78 96 Nasal Cannula 4.0 11/28/16 10:37 104 147/86 11/28/16 08:00 102 11/28/16 08:00 99.1 104 20 147/86 95 Nasal Cannula 4.0 11/28/16 07:55 102 21 97 Nasal Cannula 5.0 40 11/28/16 07:40 94 Nasal Cannula 5.0 40 11/28/16 07:40 100 20 94 Nasal Cannula 5.0 40 11/28/16 07:40 40 11/28/16 07:40 Nasal Cannula 5.0 40 Intake and Output 11/28/16 11/29/16 19:00 07:00 Intake Total 853 ml 450 ml Output Total 650 ml 1200 ml Balance 203 ml -750 ml IV Total 853 ml 450 ml Output Urine Total 650 ml 1200 ml Objective GENERAL: The patient is a well-developed male, chronically ill, chronically debilitated. reduced LOC HEENT: Normocephalic and atraumatic. Pupils are sluggish. NECK: Supple. LUNGS: some rhonchi. Moderate air entry. reduced right CARDIAC: S1 and S2. RRR The patient without murmurs, rubs, or gallops. ABDOMEN: Otherwise soft, nontender, and nondistended. GT EXTREMITIES: No cyanosis, clubbing, or edema. NEUROLOGIC: Grossly nonfocal. Current Medications Medications (Trade) Dose Ordered Sig/Pierre Route PRN Reason Start Time Stop Time Status Last Admin Dose Admin Acetaminophen (Tylenol) 650 mg Q4H PRN ORAL Mild Pain/Temp > 100.5 11/24/16 04:00 12/24/16 03:59 11/26/16 11:07 Al Hydroxide/Mg Hydroxide (Mylanta) 30 ml Q4HR PRN ORAL Per rx protocol 11/24/16 04:00 12/24/16 03:59 Albuterol/ Ipratropium (DuoNeb 0.5-3(2.5)mg/3ml) 3 ml Q6HRT HHN 11/25/16 01:00 11/30/16 00:59 11/29/16 01:54 Amlodipine Besylate (Norvasc) 2.5 mg DAILY ORAL 11/24/16 09:00 12/24/16 08:59 11/28/16 10:37 Artificial Tears (Akwa-Tears) 2 drop Q12HR BOTH EYES 11/24/16 09:00 12/24/16 08:59 11/28/16 20:44 Dextrose 1,000 ml @ 75 mls/hr [id number] IV 11/25/16 07:00 12/25/16 06:59 11/29/16 04:40 Dextrose (Dextrose 50%) STAT PRN IV Hypoglycemia 11/24/16 21:15 12/24/16 21:14 Ertapenem/Sodium Chloride (INVanz/Sodium Chloride) 110 ml @ 220 mls/hr Q24H IVPB 11/27/16 13:00 12/01/16 12:59 11/28/16 12:28 Heparin Sodium (Porcine) (Heparin 5000 units/ml) 5,000 units EVERY 12 HOURS SUBQ 11/24/16 09:00 12/24/16 08:59 11/28/16 20:46 Insulin Aspart Q6HR SUBQ 11/25/16 06:00 12/25/16 05:59 11/29/16 06:58 Pantoprazole (Protonix) 40 mg DAILY ORAL 11/24/16 09:00 12/24/16 08:59 11/28/16 10:37 Zolpidem Tartrate (Ambien) 10 mg HSPRN PRN ORAL Insomnia 11/24/16 04:00 12/24/16 03:59 DEREJE CASTANO Nov 29, 2016 07:37
[2016-11-29 08:44] VITALS: BP 149/88
[2016-11-29] MEDS: Heparin 5000 units/ml inj SUBQ SCH ×2 (09:24→21:04)
[2016-11-29] MEDS: Artificial Tears 1.4% Op Soln BOTH EYES SCH ×2 (09:27→21:03)
--- NOTE | 2016-11-29 10:59 | Infectious Diseases Prog Note ---
Assessment/Plan Assessment/Plan antibiotics : ertapenem A 1. pneumonia 2. pleural effusion s/p thoracentesis 3. DM P 1. continue ertapenem 3 more days 2. will follow up cultures Subjective ROS Limited/Unobtainable: Yes Allergies: Coded Allergies: No Known Allergies (Unverified , 11/23/16) Objective Vital Signs Last 24 Hour Vital Signs Date Time Temp Pulse Resp B/P Pulse Ox O2 Delivery O2 Flow Rate FiO2 11/29/16 09:25 100 149/88 11/29/16 08:44 98.6 100 20 149/88 97 Nasal Cannula 4.0 11/29/16 08:00 101 11/29/16 07:58 105 23 99 Nasal Cannula 5.0 40 11/29/16 07:52 Nasal Cannula 5.0 40 11/29/16 07:43 102 20 95 Nasal Cannula 5.0 40 11/29/16 07:42 95 Nasal Cannula 5.0 40 11/29/16 04:00 98.2 105 18 133/82 94 Nasal Cannula 11/29/16 04:00 105 11/29/16 01:58 90 20 98 Nasal Cannula 5.0 40 11/29/16 01:30 80 20 94 Nasal Cannula 5.0 40 11/29/16 00:00 109 11/29/16 00:00 98.4 118 22 150/81 93 Nasal Cannula 11/28/16 20:00 97.0 76 18 141/56 Nasal Cannula 2.0 80 11/28/16 20:00 90 11/28/16 19:30 95 Nasal Cannula 5.0 40 11/28/16 19:30 98 20 96 Nasal Cannula 5.0 40 11/28/16 19:30 99 20 98 Nasal Cannula 5.0 40 11/28/16 19:30 Nasal Cannula 5.0 40 11/28/16 16:00 98.1 91 18 147/73 Nasal Cannula 2.0 83 11/28/16 16:00 90 11/28/16 13:45 100 18 98 Nasal Cannula 4.0 40 11/28/16 13:32 40 11/28/16 13:32 98 18 96 Nasal Cannula 4.0 40 11/28/16 12:00 95 11/28/16 12:00 97.2 99 17 137/78 96 Nasal Cannula 4.0 Height (Feet): 5 Height (Inches): 8.00 Weight (Pounds): 175 Respiratory/Chest: lungs clear Cardiovascular: normal rate, regular rhythm, no gallop/murmur Abdomen: soft, non tender, other - GT Extremities: no edema Microbiology Date/Time Source Procedure Growth Status 11/28/16 14:30 Drainage Fluid Gram Stain - Final Resulted 11/28/16 14:30 Drainage Fluid Body Fluid Culture Pending Resulted HELDER ZAMORA Nov 29, 2016 10:59
--- NOTE | 2016-11-29 11:09 | Diagnostic Imaging Report ---
Indications: Shortness of breath, pneumonia, pleural effusion, respiratory insufficiency Technique: Continuous helical CT imaging of the thorax and upper abdomen was performed with automatic exposure control on a Siemens sensation [address] scanner. Axial images were reconstructed at 5 mm slice thickness and interval. Coronal images were reconstructed at 5 mm slice thickness. No IV contrast was administered secondary to requesting physician's order, despite no contraindications listed in either submitted clinical data or tech note.. CTDI volume(s): 21 mGy Total DLP: 742 mGy-cm Findings: Comparison: None Lack of IV contrast limits evaluation. The right hemithorax is nearly completely opacified by a large, multiloculated pleural effusion, underlying subtotal consolidation and collapse of right lung. Multiple gas collections are present in the dependent portion of the right pleural space with multiple air-fluid levels. Central right bronchi appear narrowed and partially occluded. Associated mass not excludable. Subsegmental parenchymal consolidation and volume loss in the dependent portion of left lung, adjacent to small left pleural effusion. Heart is normal in size. Minimal pericardial fluid/thickening. Small mediastinal lymph nodes to 1 cm diameter. Scattered arterial mural calcifications. Vascular patency indeterminate. Vascular nonaneurysmal. Chest wall soft tissues nonfocal. Calcified stones in gallbladder lumen. Percutaneous gastrostomy tube in place. Multiple small calcifications in the upper pole of left kidney. Bridging osteophytes thoracic spine. IMPRESSION: Large multiloculated right total effusion with multiple dependent air-fluid levels, may represent empyema Complete collapse of underlying right lung. Suggestion of associated central bronchial obstruction. Neoplasm not excludable. Consider bronchoscopy for further evaluation. Left lung base subsegmental atelectasis and adjacent small pleural effusion Minimal pericardial thickening versus effusion Arteriosclerosis Nonobstructive left nephrolithiasis Cholelithiasis Degenerative spondylosis Percutaneous gastrostomy tube
[2016-11-29 11:48] VITALS: BP 134/72
[2016-11-29] MEDS: Ertapenem 1 GM in NS 110 ML IVPB SCH (12:09)
--- NOTE | 2016-11-29 12:57 | Diagnostic Imaging Report ---
Indications: Pleural effusion Technique: Ultrasound used to localize optimal puncture site. Sterile prepping and draping chest. Local anesthesia with 1% lidocaine. Under real-time ultrasound guidance, puncture pleural space using thoracentesis needle. Stylet removed. Catheter placed to vacuum bottle suction. Total 20 milliliters of fluid aspirated. Patient tolerated procedure well, without immediate complication. Specimen was sent to the lab Findings: Followup sonography demonstrates persistent pleural fluid. Note that this is complex in appearance, likely loculated organized Impression: Ultrasound. Thoracentesis, yielding only 20 milliliters of fluid. Suspect that fluid is loculated and organized
[2016-11-29 16:00] VITALS: BP 150/83
[2016-11-29 20:00] VITALS: BP 132/82
--- NOTE | 2016-11-29 20:29 | Consultation ---
DATE OF CONSULTATION: 11/29/2016 CONSULTING PHYSICIAN: Fletcher Quezada M.D. REFERRING PHYSICIAN: Rosendo Wilson M.D. HISTORY OF PRESENT ILLNESS: The patient is a 66-year-old male with a history of encephalopathy and chronic respiratory failure, who was transferred [facility] to the emergency room of [facility] with shortness of breath and fevers. Workup including a chest CT scan demonstrated a multiloculated right pleural effusion with lung atelectasis and Thoracic surgery was consulted for further evaluation. PAST MEDICAL HISTORY: Notable for, 1. Encephalopathy. 2. Chronic respiratory failure. 3. Seizure. 4. Hypertension. PAST SURGICAL HISTORY: Includes a tracheostomy and G-tube placement. MEDICATIONS: Medications were reviewed. ALLERGIES: The patient has no known drug allergies. FAMILY/SOCIAL HISTORY: The patient has no history of tobacco, alcohol, or drug use. He currently resides in a [facility] facility. PHYSICAL EXAMINATION: GENERAL: He is noted to be afebrile. VITAL SIGNS: Within normal limits. CARDIAC: Regular rate and rhythm. No gallops or murmur. RESPIRATORY: Clear to auscultation on the left and decreased crackles noted on the right. ABDOMEN: Soft, nondistended, and nontender with normoactive bowel sounds. EXTREMITIES: Show no evidence of cyanosis, clubbing, or edema. LABORATORY STUDY: Performed on 11/28/2016 showed WBC of 11, hemoglobin 12.9, hematocrit 37.1, and a platelet count of 436,000. Chemistry, sodium is 146, potassium 3.6, chloride 103, bicarbonate 31, BUN 12, creatinine 7, and glucose is 173. PT is 11.7. PTT is 28. INR is 1.1. A chest CT scan performed on 11/29/2016 demonstrated a large multiloculated pleural effusion with multiple air-fluid levels. There is a near total collapse of the underlying right lung. ASSESSMENT AND PLAN: This is a 66-year-old, male, who presented with a right loculated pleural effusion associated with fevers and shortness of breath. The patient was evaluated at bedside. After reviewing his current clinical database, I recommend that he undergo a right video-assisted thoracoscopic surgery for decortication. The risks and benefits of the proposed operation were explained to the in detail. She understands and wishes to proceed without reservation. I want to thank you for referring this patient to my attention. If there are any questions in regards to this patient's clinical care, please do not hesitate to contact me. Swift M.D. DR: SARANYA JOB#: [id number] CC: [id number]
[2016-11-30] VITALS: BP 140/73
[2016-11-30] MEDS: NovoLOG Insulin Flexpen SUBQ SCH ×4 (00:17→17:55)
[2016-11-30 04:00] VITALS: BP 145/81
[2016-11-30 08:04] LABS: BASOPHILS % (AUTO) 1.3 % (0.0-2.0); EOSINOPHILS % (AUTO) 2.7 % (0.0-3.0); MEAN CORPUSCULAR HEMOGLOBIN 34.4 PG (27.0-31.0); MEAN CORPUSCULAR HGB CONC 32.7 G/DL (32.0-36.0); MEAN CORPUSCULAR VOLUME 105 FL (80-99); MEAN PLATELET VOLUME 7.1 FL (6.5-10.1); MONOCYTES % (AUTO) 5.2 % (1.0-10.0); NEUTROPHILS % (AUTO) 73.8 % (45.0-75.0); PLATELET COUNT 328 K/UL (150-450); RED BLOOD COUNT 3.52 M/UL (4.70-6.10); RED CELL DISTRIBUTION WIDTH 12.6 % (11.6-14.8); WHITE BLOOD COUNT 12.1 K/UL (4.8-10.8)
[2016-11-30 08:09] LABS: ANION GAP 10 (5-15); CALCIUM 8.3 mg/dL (8.6-10.2); CARBON DIOXIDE 30 mEQ/L (20-30); CHLORIDE 100 mEQ/L (98-107); CREATININE 0.5 mg/dL (0.7-1.2); GLOMERULAR FILTRATION RATE > 60 mL/min (>60); HEMOLYSIS 3; POTASSIUM 3.5 mEQ/L (3.4-4.9); SODIUM 140 mEQ/L (135-145)
[2016-11-30 08:19] LABS: INR 1.1 (0.9-1.1); PROTHROMBIN TIME 10.8 SEC (9.30-11.50)
[2016-11-30 08:24] VITALS: BP 131/80
[2016-11-30] MEDS ORDERED: Heparin 5000 units/ml inj SUBQ SCH (09:00)
--- NOTE | 2016-11-30 09:17 | Infectious Diseases Prog Note ---
Assessment/Plan Assessment/Plan A: sepsis Pneumonia Elevated transaminase Encephalopathy Pleural effusion, ? empyema DM Cholelithiasis P: continue Ertapenem Scheduled for VATS Obtain surgical cultures Subjective ROS Limited/Unobtainable: Yes Constitutional: Reports: fever, other - kmpb=398.5 last night Allergies: Coded Allergies: No Known Allergies (Unverified , 11/23/16) Objective Vital Signs Last 24 Hour Vital Signs Date Time Temp Pulse Resp B/P Pulse Ox O2 Delivery O2 Flow Rate FiO2 11/30/16 08:24 97.0 82 20 131/80 96 Nasal Cannula 4.0 11/30/16 04:00 82 11/30/16 04:00 97.7 83 18 145/81 94 Nasal Cannula 2.0 11/30/16 01:10 99.0 11/30/16 01:00 Nasal Cannula 11/30/16 01:00 Nasal Cannula 11/30/16 00:00 100.5 98 18 140/73 97 Nasal Cannula 2.0 11/30/16 00:00 94 11/29/16 20:00 98.2 101 16 132/82 96 Room Air 11/29/16 20:00 95 11/29/16 19:30 100 20 96 Nasal Cannula 4.0 36 11/29/16 19:30 Nasal Cannula 4.0 36 11/29/16 19:30 110 22 99 Nasal Cannula 4.0 36 11/29/16 19:30 96 Nasal Cannula 4.0 36 11/29/16 16:00 97.9 106 18 150/83 95 Room Air 11/29/16 16:00 101 11/29/16 13:44 107 21 99 Nasal Cannula 5.0 40 11/29/16 13:35 105 20 Nasal Cannula 5.0 40 11/29/16 12:00 105 11/29/16 11:48 98.6 104 20 134/72 97 Nasal Cannula 4.0 11/29/16 09:25 100 149/88 Height (Feet): 5 Height (Inches): 8.00 Weight (Pounds): 175 HEENT: status post trach Respiratory/Chest: other - absent sounds in R side Cardiovascular: normal rate Abdomen: soft, non tender, other - GT feeding Extremities: no edema Neurologic/Psychiatric: unresponsiveness, aphasia Microbiology Date/Time Source Procedure Growth Status 11/28/16 14:30 Drainage Fluid Gram Stain - Final Resulted 11/28/16 14:30 Drainage Fluid Body Fluid Culture - Preliminary NO GROWTH Resulted Laboratory Tests Test 11/30/16 07:25 White Blood Count 12.1 K/UL (4.8-10.8) H Red Blood Count 3.52 M/UL (4.70-6.10) L Hemoglobin 12.1 G/DL (14.2-18.0) L Hematocrit 37.0 % (42.0-52.0) L Mean Corpuscular Volume 105 FL (80-99) H Mean Corpuscular Hemoglobin 34.4 PG (27.0-31.0) H Mean Corpuscular Hemoglobin Concent 32.7 G/DL (32.0-36.0) Red Cell Distribution Width 12.6 % (11.6-14.8) Platelet Count 328 K/UL (150-450) Mean Platelet Volume 7.1 FL (6.5-10.1) Neutrophils (%) (Auto) 73.8 % (45.0-75.0) Lymphocytes (%) (Auto) 17.0 % (20.0-45.0) L Monocytes (%) (Auto) 5.2 % (1.0-10.0) Eosinophils (%) (Auto) 2.7 % (0.0-3.0) Basophils (%) (Auto) 1.3 % (0.0-2.0) Prothrombin Time 10.8 SEC (9.30-11.50) Prothromb Time International Ratio 1.1 (0.9-1.1) Activated Partial Thromboplast Time 24 SEC (23-33) Sodium Level 140 mEQ/L (135-145) Potassium Level 3.5 mEQ/L (3.4-4.9) Chloride Level 100 mEQ/L (98-107) Carbon Dioxide Level 30 mEQ/L (20-30) Anion Gap 10 (5-15) Blood Urea Nitrogen 9 mg/dL (7-23) Creatinine 0.5 mg/dL (0.7-1.2) L Estimat Glomerular Filtration Rate > 60 mL/min (>60) Glucose Level 137 mg/dL (74-106) H Calcium Level 8.3 mg/dL (8.6-10.2) L Current Medications Medications (Trade) Dose Ordered Sig/Pierre Route PRN Reason Start Time Stop Time Status Last Admin Dose Admin Acetaminophen (Tylenol) 650 mg Q4H PRN ORAL Mild Pain/Temp > 100.5 11/24/16 04:00 12/24/16 03:59 11/30/16 00:11 Al Hydroxide/Mg Hydroxide (Mylanta) 30 ml Q4HR PRN ORAL Per rx protocol 11/24/16 04:00 12/24/16 03:59 Amlodipine Besylate (Norvasc) 2.5 mg DAILY ORAL 11/24/16 09:00 12/24/16 08:59 11/29/16 09:25 Artificial Tears (Akwa-Tears) 2 drop Q12HR BOTH EYES 11/24/16 09:00 12/24/16 08:59 11/29/16 21:03 Dextrose 1,000 ml @ 75 mls/hr [id number] IV 11/25/16 07:00 12/01/16 04:59 11/30/16 06:48 Dextrose (Dextrose 50%) STAT PRN IV Hypoglycemia 11/24/16 21:15 12/24/16 21:14 Ertapenem/Sodium Chloride (INVanz/Sodium Chloride) 110 ml @ 220 mls/hr Q24H IVPB 11/27/16 13:00 12/02/16 12:59 11/29/16 12:09 Heparin Sodium (Porcine) 5000 units 5,000 units EVERY 12 HOURS SUBQ 11/30/16 09:00 11/30/16 15:00 Insulin Aspart Q6HR SUBQ 11/25/16 06:00 12/25/16 05:59 11/30/16 05:50 Pantoprazole (Protonix) 40 mg DAILY ORAL 11/24/16 09:00 12/24/16 08:59 11/29/16 09:25 Sodium (0.45%NS w/KCl 20mEq 1000ml) 1,000 ml @ 120 mls/hr Q8H20M IV 12/01/16 05:00 12/31/16 04:59 Zolpidem Tartrate (Ambien) 10 mg HSPRN PRN ORAL Insomnia 11/24/16 04:00 12/24/16 03:59 REINALDO HUTCHINSON Nov 30, 2016 09:17
--- NOTE | 2016-11-30 09:35 | Pulmonology Progress Note ---
Assessment/Plan Assessment/Plan IMPRESSIONS: 1. Pneumonia. 2. Respiratory insufficiency. 3. Hypertension. 4. Sinus tachycardia without fevers. 5. Possible sepsis. 6. Lactic acidemia. 7. History of seizures. 8. History of chronic encephalopathy. 9. hypernatremia 10. pleural effusion PLAN care noted radiology noted monitor lytes labs noted and reviewed IV antibiotics noted respiratory care reviewed CT chest will need decortication all reviewed and discussed impression, plan, and exam edited and reviewed in detail care discussed with RN Subjective ROS Limited/Unobtainable: Yes Allergies: Coded Allergies: No Known Allergies (Unverified , 11/23/16) Subjective comfortable on NC oxygen poor LOC CT reviewed d/w thoracic d/w Objective Last 24 Hour Vital Signs Date Time Temp Pulse Resp B/P Pulse Ox O2 Delivery O2 Flow Rate FiO2 11/30/16 08:24 97.0 82 20 131/80 96 Nasal Cannula 4.0 11/30/16 04:00 82 11/30/16 04:00 97.7 83 18 145/81 94 Nasal Cannula 2.0 11/30/16 01:10 99.0 11/30/16 01:00 Nasal Cannula 11/30/16 01:00 Nasal Cannula 11/30/16 00:00 100.5 98 18 140/73 97 Nasal Cannula 2.0 11/30/16 00:00 94 11/29/16 20:00 98.2 101 16 132/82 96 Room Air 11/29/16 20:00 95 11/29/16 19:30 100 20 96 Nasal Cannula 4.0 36 11/29/16 19:30 Nasal Cannula 4.0 36 11/29/16 19:30 110 22 99 Nasal Cannula 4.0 36 11/29/16 19:30 96 Nasal Cannula 4.0 36 11/29/16 16:00 97.9 106 18 150/83 95 Room Air 11/29/16 16:00 101 11/29/16 13:44 107 21 99 Nasal Cannula 5.0 40 11/29/16 13:35 105 20 Nasal Cannula 5.0 40 11/29/16 12:00 105 11/29/16 11:48 98.6 104 20 134/72 97 Nasal Cannula 4.0 Intake and Output 11/29/16 11/30/16 19:00 07:00 Intake Total 2230 ml 1880 ml Output Total 600 ml 1200 ml Balance 1630 ml 680 ml Intake Free Water 450 ml 450 ml IV Total 1120 ml 825 ml Tube Feeding 660 ml 605 ml Output Urine Total 600 ml 1200 ml # Bowel Movements 1 Objective GENERAL: The patient is a well-developed male, chronically ill, chronically debilitated. reduced LOC HEENT: Normocephalic and atraumatic. Pupils are sluggish. NECK: Supple. LUNGS: some rhonchi. Moderate air entry. reduced right CARDIAC: S1 and S2. RRR The patient without murmurs, rubs, or gallops. ABDOMEN: Otherwise soft, nontender, and nondistended. GT EXTREMITIES: No cyanosis, clubbing, or edema. NEUROLOGIC: Grossly nonfocal. Microbiology Date/Time Source Procedure Growth Status 11/28/16 14:30 Drainage Fluid Gram Stain - Final Resulted 11/28/16 14:30 Drainage Fluid Body Fluid Culture - Preliminary NO GROWTH Resulted Laboratory Tests 11/30/16 07:25: White Blood Count 12.1H, Red Blood Count 3.52L, Hemoglobin 12.1L, Hematocrit 37.0L, Mean Corpuscular Volume 105H, Mean Corpuscular Hemoglobin 34.4H, Mean Corpuscular Hemoglobin Concent 32.7, Red Cell Distribution Width 12.6, Platelet Count 328, Mean Platelet Volume 7.1, Neutrophils (%) (Auto) 73.8, Lymphocytes (% ) (Auto) 17.0L, Monocytes (%) (Auto) 5.2, Eosinophils (%) (Auto) 2.7, Basophils (%) (Auto) 1.3, Prothrombin Time 10.8, Prothromb Time International Ratio 1.1, Activated Partial Thromboplast Time 24, Sodium Level 140, Potassium Level 3.5, Chloride Level 100, Carbon Dioxide Level 30, Anion Gap 10, Blood Urea Nitrogen 9 , Creatinine 0.5L, Estimat Glomerular Filtration Rate > 60, Glucose Level 137H, Calcium Level 8.3L Current Medications Medications (Trade) Dose Ordered Sig/Pierre Route PRN Reason Start Time Stop Time Status Last Admin Dose Admin Acetaminophen (Tylenol) 650 mg Q4H PRN ORAL Mild Pain/Temp > 100.5 11/24/16 04:00 12/24/16 03:59 11/30/16 00:11 Al Hydroxide/Mg Hydroxide (Mylanta) 30 ml Q4HR PRN ORAL Per rx protocol 11/24/16 04:00 12/24/16 03:59 Amlodipine Besylate (Norvasc) 2.5 mg DAILY ORAL 11/24/16 09:00 12/24/16 08:59 11/29/16 09:25 Artificial Tears (Akwa-Tears) 2 drop Q12HR BOTH EYES 11/24/16 09:00 12/24/16 08:59 11/29/16 21:03 Dextrose 1,000 ml @ 75 mls/hr [id number] IV 11/25/16 07:00 12/01/16 04:59 11/30/16 06:48 Dextrose (Dextrose 50%) STAT PRN IV Hypoglycemia 11/24/16 21:15 12/24/16 21:14 Ertapenem/Sodium Chloride (INVanz/Sodium Chloride) 110 ml @ 220 mls/hr Q24H IVPB 11/27/16 13:00 12/02/16 12:59 11/29/16 12:09 Heparin Sodium (Porcine) 5000 units 5,000 units EVERY 12 HOURS SUBQ 11/30/16 09:00 11/30/16 15:00 Insulin Aspart Q6HR SUBQ 11/25/16 06:00 12/25/16 05:59 11/30/16 05:50 Pantoprazole (Protonix) 40 mg DAILY ORAL 11/24/16 09:00 12/24/16 08:59 11/29/16 09:25 Sodium (0.45%NS w/KCl 20mEq 1000ml) 1,000 ml @ 120 mls/hr Q8H20M IV 12/01/16 05:00 12/31/16 04:59 Zolpidem Tartrate (Ambien) 10 mg HSPRN PRN ORAL Insomnia 11/24/16 04:00 12/24/16 03:59 DEREJE CASTANO Nov 30, 2016 09:35
[2016-11-30] MEDS: Artificial Tears 1.4% Op Soln BOTH EYES SCH ×2 (09:41→21:49)
[2016-11-30 11:40] VITALS: BP 130/81
[2016-11-30] MEDS: Ertapenem 1 GM in NS 110 ML IVPB SCH (13:09)
--- NOTE | 2016-11-30 14:34 | Anethesia Preoperative Eval ---
Anesthesia Pre-op PMH/ROS General Date of Evaluation: Nov 30, 2016 Anesthesiologist: Lior ASA Score: ASA 4 Mallampati Score Class I : Soft palate, uvula, fauces, pillars visible Class II: Soft palate, uvula, fauces visible Class III: Soft palate, base of uvula visible Class IV: Only hard plate visible Mallampati Classification: Class II Surgeon: Damien Diagnosis: Right multiloculated pleural effusion Surgical Procedure: Right VATS Anesthesia History: none Family History: no anesthesia problems Allergies: Coded Allergies: No Known Allergies (Unverified , 11/23/16) Medications: see eMAR Past Medical History Cardiovascular: Reports: HTN, Denies: CAD, DE, arrhythmia, other, valve dz Pulmonary: Reports: other - Right multiloculated pleural effusion, Denies: COPD, NICOLE, asthma Gastrointestinal/Genitourinary: Denies: CRI, ESRD, GERD, other Neurologic/Psychiatric: Reports: other - encephalopathy, h/o epilepsy s/p trauma, Denies: CVA, TIA, dementia, depression/anxiety Endocrine: Denies: DM, hypothyroidism, other, steroids HEENT: Denies: [place] (L), [place] (R), cataract (L), cataract (R), glaucoma, other Hematology/Immune: Denies: DVT, anemia, bleeding disorder, other Musculoskeletal/Integumentary: Denies: DDD, DJD, OA, RA, edema, other PSxH Narrative: trach, g-tube Anesthesia Pre-op Phys. Exam Physician Exam Last Vital Signs Date Time Temp Pulse Resp B/P Pulse Ox O2 Delivery O2 Flow Rate FiO2 11/30/16 12:00 92 11/30/16 11:40 98.1 20 130/81 96 Nasal Cannula 4.0 11/29/16 19:30 36 Constitutional: NAD Cardiovascular: other - tachy Respiratory: other - dimished right breath sounds Airway Exam Mallampati Score: Class II Anesthesia Pre-op A/P Labs Hematology Test 11/30/16 07:25 White Blood Count 12.1 K/UL (4.8-10.8) H Red Blood Count 3.52 M/UL (4.70-6.10) L Hemoglobin 12.1 G/DL (14.2-18.0) L Hematocrit 37.0 % (42.0-52.0) L Mean Corpuscular Volume 105 FL (80-99) H Mean Corpuscular Hemoglobin 34.4 PG (27.0-31.0) H Mean Corpuscular Hemoglobin Concent 32.7 G/DL (32.0-36.0) Red Cell Distribution Width 12.6 % (11.6-14.8) Platelet Count 328 K/UL (150-450) Mean Platelet Volume 7.1 FL (6.5-10.1) Neutrophils (%) (Auto) 73.8 % (45.0-75.0) Lymphocytes (%) (Auto) 17.0 % (20.0-45.0) L Monocytes (%) (Auto) 5.2 % (1.0-10.0) Eosinophils (%) (Auto) 2.7 % (0.0-3.0) Basophils (%) (Auto) 1.3 % (0.0-2.0) Coagulation Test 11/30/16 07:25 Prothrombin Time 10.8 SEC (9.30-11.50) Prothromb Time International Ratio 1.1 (0.9-1.1) Activated Partial Thromboplast Time 24 SEC (23-33) Chemistry Test 11/30/16 07:25 Sodium Level 140 mEQ/L (135-145) Potassium Level 3.5 mEQ/L (3.4-4.9) Chloride Level 100 mEQ/L (98-107) Carbon Dioxide Level 30 mEQ/L (20-30) Anion Gap 10 (5-15) Blood Urea Nitrogen 9 mg/dL (7-23) Creatinine 0.5 mg/dL (0.7-1.2) L Estimat Glomerular Filtration Rate > 60 mL/min (>60) Glucose Level 137 mg/dL (74-106) H Calcium Level 8.3 mg/dL (8.6-10.2) L Studies Pre-op Studies: EKG - ST, other - CT chest-right multiloculated pleural effusion, ?central bronchial obstrucion, possible neoplasm Risk Assessment & Plan Assessment: ASA IV Plan: GA Status Change Before Surgery: No Pre-Antibiotics Drug: LINDA MARIA M.D. Nov 30, 2016 14:34
--- NOTE | 2016-11-30 14:37 | General Progress Note ---
Assessment/Plan Problem List: (1) Respiratory failure with hypoxia ICD Codes: J96.91 - Respiratory failure, unspecified with hypoxia SNOMED: 01518670144713690 Qualifiers: Qualified Codes: J96.21 - Acute and chronic respiratory failure with hypoxia (2) Pneumonia ICD Codes: J18.9 - Pneumonia, unspecified organism SNOMED: 684323154 Qualifiers: Qualified Codes: J18.9 - Pneumonia, unspecified organism (3) UTI (urinary tract infection) ICD Codes: N39.0 - Urinary tract infection, site not specified SNOMED: 82019558 Qualifiers: Qualified Codes: N30.00 - Acute cystitis without hematuria (4) Severe sepsis ICD Codes: A41.9 - Sepsis, unspecified organism; R65.20 - Severe sepsis without septic shock SNOMED: 77082723 Status: stable, progressing Assessment/Plan ivf adjusted water flushes monitior bs iv abx follow up cultures suctioning/resp rx vats tomorrow sz rx gt feeds pulm follow- monitor labs tylenol for fever Subjective ROS Limited/Unobtainable: Yes Constitutional: Reports: malaise, weakness HEENT: Reports: no symptoms Cardiovascular: Reports: no symptoms Respiratory: Reports: cough, sputum Gastrointestinal/Abdominal: Reports: difficulty swallowing Genitourinary: Reports: no symptoms Neurologic/Psychiatric: Reports: pre-existing deficit Endocrine: Reports: no symptoms Hematologic/Lymphatic: Reports: anemia Allergies: Coded Allergies: No Known Allergies (Unverified , 11/23/16) All Systems: reviewed and negative except above Subjective no events. tolerating feeds. soft stools. poorly responsive at baseline. cxr shows near complete opacification of right hemithorax. on iv abx. scheduled for vats tomorrow afternoon. Objective Last 24 Hour Vital Signs Date Time Temp Pulse Resp B/P Pulse Ox O2 Delivery O2 Flow Rate FiO2 11/30/16 12:00 92 11/30/16 11:40 98.1 92 20 130/81 96 Nasal Cannula 4.0 11/30/16 09:41 82 131/80 11/30/16 08:24 97.0 82 20 131/80 96 Nasal Cannula 4.0 11/30/16 08:00 82 11/30/16 04:00 82 11/30/16 04:00 97.7 83 18 145/81 94 Nasal Cannula 2.0 11/30/16 01:10 99.0 11/30/16 01:00 Nasal Cannula 11/30/16 01:00 Nasal Cannula 11/30/16 00:00 100.5 98 18 140/73 97 Nasal Cannula 2.0 11/30/16 00:00 94 11/29/16 20:00 98.2 101 16 132/82 96 Room Air 11/29/16 20:00 95 11/29/16 19:30 100 20 96 Nasal Cannula 4.0 36 11/29/16 19:30 Nasal Cannula 4.0 36 11/29/16 19:30 110 22 99 Nasal Cannula 4.0 36 11/29/16 19:30 96 Nasal Cannula 4.0 36 11/29/16 16:00 97.9 106 18 150/83 95 Room Air 11/29/16 16:00 101 Intake and Output 11/29/16 11/30/16 19:00 07:00 Intake Total 2230 ml 1880 ml Output Total 600 ml 1200 ml Balance 1630 ml 680 ml Intake Free Water 450 ml 450 ml IV Total 1120 ml 825 ml Tube Feeding 660 ml 605 ml Output Urine Total 600 ml 1200 ml # Bowel Movements 1 Laboratory Tests 11/30/16 07:25: White Blood Count 12.1H, Red Blood Count 3.52L, Hemoglobin 12.1L, Hematocrit 37.0L, Mean Corpuscular Volume 105H, Mean Corpuscular Hemoglobin 34.4H, Mean Corpuscular Hemoglobin Concent 32.7, Red Cell Distribution Width 12.6, Platelet Count 328, Mean Platelet Volume 7.1, Neutrophils (%) (Auto) 73.8, Lymphocytes (% ) (Auto) 17.0L, Monocytes (%) (Auto) 5.2, Eosinophils (%) (Auto) 2.7, Basophils (%) (Auto) 1.3, Prothrombin Time 10.8, Prothromb Time International Ratio 1.1, Activated Partial Thromboplast Time 24, Sodium Level 140, Potassium Level 3.5, Chloride Level 100, Carbon Dioxide Level 30, Anion Gap 10, Blood Urea Nitrogen 9 , Creatinine 0.5L, Estimat Glomerular Filtration Rate > 60, Glucose Level 137H, Calcium Level 8.3L Height (Feet): 5 Height (Inches): 8.00 Weight (Pounds): 175 Objective General Appearance: WD/WN, confused Neck: supple Cardiovascular: regular rhythm Respiratory/Chest: crackles/rales, rhonchi - bilaterally Abdomen: normal bowel sounds, non tender, soft, no organomegaly Edema: no edema noted Arm (L), no edema noted Arm (R), no edema noted Leg (L), no edema noted Leg (R), no edema noted Pedal (L), no edema noted Pedal (R), no edema noted Generalized Skin: warm/dry DESMOND GARCIA Nov 30, 2016 14:37
[2016-11-30 16:00] VITALS: BP 138/75
[2016-11-30 20:00] VITALS: BP 126/73
[2016-12-01] VITALS (8 sets, daily range): BP systolic 105–139; BP diastolic 62–86
[2016-12-01] MEDS: NovoLOG Insulin Flexpen SUBQ SCH ×5 (00:15→23:40)
[2016-12-01] MEDS ORDERED: 1/2NS w/KCl 20mEq 1000ml 1,000 ML IV SCH ×2 (05:00→17:00)
--- NOTE | 2016-12-01 08:18 | Pulmonology Progress Note ---
Assessment/Plan Assessment/Plan IMPRESSIONS: 1. Pneumonia. 2. Respiratory insufficiency. 3. Hypertension. 4. Sinus tachycardia without fevers. 5. Possible sepsis. 6. Lactic acidemia. 7. History of seizures. 8. History of chronic encephalopathy. 9. hypernatremia 10. pleural effusion PLAN care noted all reviwe monitor lytes labs reviewed IV antibiotics noted respiratory care will need decortication; plan for today all reviewed and discussed impression, plan, and exam edited and reviewed in detail care discussed with RN Subjective ROS Limited/Unobtainable: Yes Allergies: Coded Allergies: No Known Allergies (Unverified , 11/23/16) Subjective comfortable on NC oxygen poor LOC CT reviewed d/w thoracic, for surgical intervention today d/w Objective Last 24 Hour Vital Signs Date Time Temp Pulse Resp B/P Pulse Ox O2 Delivery O2 Flow Rate FiO2 12/01/16 04:31 99.0 95 20 121/77 96 Nasal Cannula 2.0 12/01/16 04:00 93 12/01/16 00:27 98.2 100 20 122/79 94 Nasal Cannula 2.0 12/01/16 00:00 97 11/30/16 20:00 Nasal Cannula 4.0 36 11/30/16 20:00 96 Nasal Cannula 4.0 36 11/30/16 20:00 98 11/30/16 20:00 98.4 101 21 126/73 96 Nasal Cannula 5.0 11/30/16 16:00 97.8 99 21 138/75 96 Nasal Cannula 2.0 11/30/16 16:00 98 11/30/16 12:00 92 11/30/16 11:40 98.1 92 20 130/81 96 Nasal Cannula 4.0 11/30/16 09:41 82 131/80 11/30/16 08:24 97.0 82 20 131/80 96 Nasal Cannula 4.0 Intake and Output 11/30/16 12/01/16 19:00 07:00 Intake Total 560 ml 1200 ml Output Total 800 ml 1000 ml Balance -240 ml 200 ml Intake Free Water 300 ml IV Total 560 ml 570 ml Tube Feeding 330 ml Output Urine Total 800 ml 1000 ml # Bowel Movements 1 1 Objective GENERAL: The patient is a well-developed male, chronically ill, chronically debilitated. reduced LOC HEENT: Normocephalic and atraumatic. Pupils are sluggish. NECK: Supple. LUNGS: some rhonchi. Moderate air entry. reduced right CARDIAC: S1 and S2. RRR The patient without murmurs, rubs, or gallops. ABDOMEN: Otherwise soft, nontender, and nondistended. GT EXTREMITIES: No cyanosis, clubbing, or edema. NEUROLOGIC: Grossly nonfocal. reviewed and edited Microbiology Date/Time Source Procedure Growth Status 11/28/16 14:30 Drainage Fluid Gram Stain - Final Resulted 11/28/16 14:30 Drainage Fluid Body Fluid Culture - Preliminary NO GROWTH AFTER 48 HOURS Resulted Current Medications Medications (Trade) Dose Ordered Sig/Pierre Route PRN Reason Start Time Stop Time Status Last Admin Dose Admin Acetaminophen (Tylenol) 650 mg Q4H PRN ORAL Mild Pain/Temp > 100.5 11/24/16 04:00 12/24/16 03:59 11/30/16 00:11 Al Hydroxide/Mg Hydroxide (Mylanta) 30 ml Q4HR PRN ORAL Per rx protocol 11/24/16 04:00 12/24/16 03:59 Amlodipine Besylate (Norvasc) 2.5 mg DAILY ORAL 11/24/16 09:00 12/24/16 08:59 11/30/16 09:41 Artificial Tears (Akwa-Tears) 2 drop Q12HR BOTH EYES 11/24/16 09:00 12/24/16 08:59 11/30/16 21:49 Dextrose (Dextrose 50%) STAT PRN IV Hypoglycemia 11/24/16 21:15 12/24/16 21:14 Ertapenem 1 gm/ Sodium Chloride 110 ml @ 220 mls/hr Q24H IVPB 11/27/16 13:00 12/02/16 12:59 11/30/16 13:09 Insulin Aspart Q6HR SUBQ 11/25/16 06:00 12/25/16 05:59 12/01/16 06:29 Pantoprazole (Protonix) 40 mg DAILY ORAL 11/24/16 09:00 12/24/16 08:59 11/30/16 09:41 Sodium (0.45%NS w/KCl 20mEq 1000ml) 1,000 ml @ 120 mls/hr Q8H20M IV 12/01/16 05:00 12/31/16 04:59 12/01/16 05:10 Zolpidem Tartrate (Ambien) 10 mg HSPRN PRN ORAL Insomnia 11/24/16 04:00 12/24/16 03:59 DEREJE CASTANO Dec 01, 2016 08:18
--- NOTE | 2016-12-01 08:53 | General Progress Note ---
Assessment/Plan Problem List: (1) Respiratory failure with hypoxia ICD Codes: J96.91 - Respiratory failure, unspecified with hypoxia SNOMED: 15863842840412803 Qualifiers: Qualified Codes: J96.21 - Acute and chronic respiratory failure with hypoxia (2) Pneumonia ICD Codes: J18.9 - Pneumonia, unspecified organism SNOMED: 386267552 Qualifiers: Qualified Codes: J18.9 - Pneumonia, unspecified organism (3) UTI (urinary tract infection) ICD Codes: N39.0 - Urinary tract infection, site not specified SNOMED: 85144239 Qualifiers: Qualified Codes: N30.00 - Acute cystitis without hematuria (4) Severe sepsis ICD Codes: A41.9 - Sepsis, unspecified organism; R65.20 - Severe sepsis without septic shock SNOMED: 16068595 Status: stable, progressing Assessment/Plan ivf adjusted water flushes monitior bs iv abx follow up cultures suctioning/resp rx vats tomorrow sz rx vats this afternoon Subjective ROS Limited/Unobtainable: No Constitutional: Reports: malaise, weakness HEENT: Reports: no symptoms Cardiovascular: Reports: no symptoms Respiratory: Reports: no symptoms Gastrointestinal/Abdominal: Reports: difficulty swallowing Genitourinary: Reports: no symptoms Neurologic/Psychiatric: Reports: pre-existing deficit Endocrine: Reports: no symptoms Hematologic/Lymphatic: Reports: anemia Allergies: Coded Allergies: No Known Allergies (Unverified , 11/23/16) All Systems: reviewed and negative except above Subjective npo for vats. no overnite events. d/w rn Objective Last 24 Hour Vital Signs Date Time Temp Pulse Resp B/P Pulse Ox O2 Delivery O2 Flow Rate FiO2 12/01/16 04:31 99.0 95 20 121/77 96 Nasal Cannula 2.0 12/01/16 04:00 93 12/01/16 00:27 98.2 100 20 122/79 94 Nasal Cannula 2.0 12/01/16 00:00 97 11/30/16 20:00 Nasal Cannula 4.0 36 11/30/16 20:00 96 Nasal Cannula 4.0 36 11/30/16 20:00 98 11/30/16 20:00 98.4 101 21 126/73 96 Nasal Cannula 5.0 11/30/16 16:00 97.8 99 21 138/75 96 Nasal Cannula 2.0 11/30/16 16:00 98 11/30/16 12:00 92 11/30/16 11:40 98.1 92 20 130/81 96 Nasal Cannula 4.0 11/30/16 09:41 82 131/80 Intake and Output 11/30/16 12/01/16 19:00 07:00 Intake Total 560 ml 1200 ml Output Total 800 ml 1000 ml Balance -240 ml 200 ml Intake Free Water 300 ml IV Total 560 ml 570 ml Tube Feeding 330 ml Output Urine Total 800 ml 1000 ml # Bowel Movements 1 1 Height (Feet): 5 Height (Inches): 8.00 Weight (Pounds): 175 Objective General Appearance: WD/WN, confused Neck: supple Cardiovascular: regular rhythm Respiratory/Chest: crackles/rales, rhonchi - bilaterally Abdomen: normal bowel sounds, non tender, soft, no organomegaly Edema: no edema noted Arm (L), no edema noted Arm (R), no edema noted Leg (L), no edema noted Leg (R), no edema noted Pedal (L), no edema noted Pedal (R), no edema noted Generalized Skin: warm/dry DESMOND GARCIA Dec 01, 2016 08:53
--- NOTE | 2016-12-01 09:35 | Infectious Diseases Prog Note ---
Assessment/Plan Assessment/Plan A: sepsis Pneumonia Elevated transaminase Encephalopathy Pleural effusion, ? empyema DM Cholelithiasis P: continue Ertapenem Scheduled for VATS Obtain surgical cultures Subjective ROS Limited/Unobtainable: Yes Allergies: Coded Allergies: No Known Allergies (Unverified , 11/23/16) Objective Vital Signs Last 24 Hour Vital Signs Date Time Temp Pulse Resp B/P Pulse Ox O2 Delivery O2 Flow Rate FiO2 12/01/16 08:00 96.8 95 17 139/82 95 Nasal Cannula 4.0 12/01/16 04:31 99.0 95 20 121/77 96 Nasal Cannula 2.0 12/01/16 04:00 93 12/01/16 00:27 98.2 100 20 122/79 94 Nasal Cannula 2.0 12/01/16 00:00 97 11/30/16 20:00 Nasal Cannula 4.0 36 11/30/16 20:00 96 Nasal Cannula 4.0 36 11/30/16 20:00 98 11/30/16 20:00 98.4 101 21 126/73 96 Nasal Cannula 5.0 11/30/16 16:00 97.8 99 21 138/75 96 Nasal Cannula 2.0 11/30/16 16:00 98 11/30/16 12:00 92 11/30/16 11:40 98.1 92 20 130/81 96 Nasal Cannula 4.0 11/30/16 09:41 82 131/80 Height (Feet): 5 Height (Inches): 8.00 Weight (Pounds): 175 HEENT: status post trach Respiratory/Chest: other - absent sounds in R, rhonchi in left Cardiovascular: normal rate Abdomen: soft, non tender, other - GT in place Extremities: no edema Neurologic/Psychiatric: unresponsiveness Microbiology Date/Time Source Procedure Growth Status 11/28/16 14:30 Drainage Fluid Gram Stain - Final Resulted 11/28/16 14:30 Drainage Fluid Body Fluid Culture - Preliminary NO GROWTH AFTER 48 HOURS Resulted Current Medications Medications (Trade) Dose Ordered Sig/Pierre Route PRN Reason Start Time Stop Time Status Last Admin Dose Admin Acetaminophen (Tylenol) 650 mg Q4H PRN ORAL Mild Pain/Temp > 100.5 11/24/16 04:00 12/24/16 03:59 11/30/16 00:11 Al Hydroxide/Mg Hydroxide (Mylanta) 30 ml Q4HR PRN ORAL Per rx protocol 11/24/16 04:00 12/24/16 03:59 Amlodipine Besylate (Norvasc) 2.5 mg DAILY ORAL 11/24/16 09:00 12/24/16 08:59 11/30/16 09:41 Artificial Tears (Akwa-Tears) 2 drop Q12HR BOTH EYES 11/24/16 09:00 12/24/16 08:59 11/30/16 21:49 Dextrose (Dextrose 50%) STAT PRN IV Hypoglycemia 11/24/16 21:15 12/24/16 21:14 Ertapenem 1 gm/ Sodium Chloride 110 ml @ 220 mls/hr Q24H IVPB 11/27/16 13:00 12/02/16 12:59 11/30/16 13:09 Insulin Aspart Q6HR SUBQ 11/25/16 06:00 12/25/16 05:59 12/01/16 06:29 Pantoprazole (Protonix) 40 mg DAILY ORAL 11/24/16 09:00 12/24/16 08:59 11/30/16 09:41 Sodium (0.45%NS w/KCl 20mEq 1000ml) 1,000 ml @ 120 mls/hr Q8H20M IV 12/01/16 05:00 12/31/16 04:59 12/01/16 05:10 Zolpidem Tartrate (Ambien) 10 mg HSPRN PRN ORAL Insomnia 11/24/16 04:00 12/24/16 03:59 REINALDO HUTCHINSON Dec 01, 2016 09:35
[2016-12-01] MEDS ORDERED: NS Irrig 1000ml ONE (10:00)
[2016-12-01] MEDS ORDERED: NS Irrig 2000ml IRRIG ONE ×2 (10:00→17:55)
[2016-12-01] MEDS: Artificial Tears 1.4% Op Soln BOTH EYES SCH ×2 (10:48→21:12)
[2016-12-01] MEDS ORDERED: Bupivacaine 0.5% Inj 30 ml vial INJ ONE (12:04)
[2016-12-01] MEDS ORDERED: Bupivacaine w/Epi 0.25% 30ml Vial INJ ONE ×3 (12:04→17:55)
[2016-12-01] MEDS ORDERED: Lidocaine 1% 10mg/ml/Epi 0.005mg/ml 30ml vial INJ ONE ×2 (12:04→17:55)
[2016-12-01] MEDS ORDERED: Cefepime 1gm vial ONE (12:09)
[2016-12-01] MEDS ORDERED: Amikacin 500mg/2mL Inj IV ONE (12:15)
--- NOTE | 2016-12-01 13:13 | Pre-Procedure Note/Attestation ---
Pre-Procedure Note/Attestation Complete Prior to Procedure Planned Procedure: right Procedure Narrative: Right loculated effusion Attestation I attest that I discussed the nature of the procedure; its benefits; risks and complications; and alternatives (and the risks and benefits of such alternatives ), prior to the procedure, with the patient (or the patient's legal credit representative). I attest that, if there was a reasonable possibility of needing a blood transfusion, the patient (or the patient's legal credit representative) was given the [facility] standardized written summary, pursuant to the Nikolai Nicolle Blood Safety Act ([place] Health and Safety Code # 1645, as amended). I attest that I re-evaluated the patient just prior to the surgery and that there has been no change in the patient's H&P, except as documented below: RUTH ELLISON M.D. Dec 01, 2016 13:13
[2016-12-01] MEDS ORDERED: METRONIDAZOLE 500 MG ONE (15:30)
[2016-12-01] MEDS ORDERED: Bacitracin 50000 Units Vial ONE (15:30)
[2016-12-01] MEDS ORDERED: Zolpidem 5mg tab ORAL PRN (16:49)
[2016-12-01] MEDS ORDERED: NS Irrig 4000ml IRRIG ONE ×2 (17:55)
--- NOTE | 2016-12-01 17:57 | Immediate Post-Op Evaluation ---
Immediate Post-Op Evalulation Immediate Post-Op Evalulation Procedure: Decortication Date of Evaluation: Dec 01, 2016 Time of Evaluation: 17:53 IV Fluids: NS 2.5L , Alb 5% 1L Blood Products: 0 Estimated Blood Loss: 400 Urinary Output: 250 Blood Pressure Systolic: 110 Blood Pressure Diastolic: 60 Pulse Rate: 86 Respiratory Rate: 20 O2 Sat by Pulse Oximetry: 100 Temperature (Fahrenheit): 98 Pain Score (1-10): 1 Nausea: No Vomiting: No Complications na Patient Status: extubated Hydration Status: adequate Drug: Ancef 2G Given Within 1 Hr of Incision: Yes Time Given: 13:45 NOEL RAMÍREZ M.D. Dec 01, 2016 17:57
[2016-12-01] MEDS ORDERED: D5 1/2NS w/KCl 20mEq 1,000 ML IV SCH ×2 (18:15→20:00)
[2016-12-01] MEDS ORDERED: Morphine Sulfate 2mg/ml Inj IVP PRN (18:15)
[2016-12-01 18:32] LABS: ABG ALLEN TEST POSITIVE; ABG BASE EXCESS -3.1; ABG PCO2 36.7 mmHg (35.0-45.0)
[2016-12-01 18:36] LABS: MEAN CORPUSCULAR HEMOGLOBIN 36.6 PG (27.0-31.0); MEAN CORPUSCULAR HGB CONC 35.1 G/DL (32.0-36.0); MEAN CORPUSCULAR VOLUME 104 FL (80-99); MEAN PLATELET VOLUME 6.9 FL (6.5-10.1); PLATELET COUNT 346 K/UL (150-450); RED BLOOD COUNT 2.77 M/UL (4.70-6.10); RED CELL DISTRIBUTION WIDTH 12.4 % (11.6-14.8); WHITE BLOOD COUNT 18.2 K/UL (4.8-10.8)
[2016-12-01 18:39] LABS: BASOPHILS % (AUTO) 0.4 % (0.0-2.0); LYMPHOCYTES % (AUTO) 2.7 % (20.0-45.0); MONOCYTES % (AUTO) 1.8 % (1.0-10.0)
[2016-12-01 18:52] LABS: ANION GAP 15 (5-15); CALCIUM 6.7 mg/dL (8.6-10.2); CARBON DIOXIDE 22 mEQ/L (20-30); CHLORIDE 103 mEQ/L (98-107); CREATININE 0.7 mg/dL (0.7-1.2); GLOMERULAR FILTRATION RATE > 60 mL/min (>60); HEMOLYSIS 3; SODIUM 140 mEQ/L (135-145)
[2016-12-02] VITALS (17 sets, daily range): BP systolic 98–151; BP diastolic 55–88
[2016-12-02 05:42] LABS: MEAN CORPUSCULAR HEMOGLOBIN 35.3 PG (27.0-31.0); MEAN CORPUSCULAR HGB CONC 34.5 G/DL (32.0-36.0); MEAN CORPUSCULAR VOLUME 102 FL (80-99); MEAN PLATELET VOLUME 7.1 FL (6.5-10.1); PLATELET COUNT 412 K/UL (150-450); RED BLOOD COUNT 2.75 M/UL (4.70-6.10); RED CELL DISTRIBUTION WIDTH 12.7 % (11.6-14.8); WHITE BLOOD COUNT 16.3 K/UL (4.8-10.8)
[2016-12-02] MEDS: NovoLOG Insulin Flexpen SUBQ SCH ×4 (06:07→23:55)
[2016-12-02 06:21] LABS: ANION GAP 13 (5-15); CALCIUM 7.5 mg/dL (8.6-10.2); CARBON DIOXIDE 23 mEQ/L (20-30); CHLORIDE 103 mEQ/L (98-107); CREATININE 0.6 mg/dL (0.7-1.2); GLOMERULAR FILTRATION RATE > 60 mL/min (>60); HEMOLYSIS 2; POTASSIUM 4.1 mEQ/L (3.4-4.9); SODIUM 139 mEQ/L (135-145)
[2016-12-02 08:05] LABS: BAND NEUTROPHILS % (MANUAL) 2 % (0-8); BASOPHILS % (MANUAL) 0 % (0-2); EOSINOPHILS % (MANUAL) 0 % (0-3); HYPOCHROMASIA 1+; LYMPHOCYTES % (MANUAL) 9 % (20-45); MACROCYTES 1+; NEUTROPHILS % (MANUAL) 83 % (45-75); PLATELET ESTIMATE ADEQUATE; PLATELET MORPHOLOGY NORMAL; TOTAL CELLS COUNTED 100
--- NOTE | 2016-12-02 08:51 | Critical Care Progress Note ---
Assessment/Plan Assessment/Plan IMPRESSIONS: 1. Pneumonia. 2. Respiratory insufficiency. 3. Hypertension. 4. Sinus tachycardia without fevers. 5. Possible sepsis. 6. Lactic acidemia. 7. History of seizures. 8. History of chronic encephalopathy. 9. hypernatremia 10. pleural effusion 11. s/p decortication 12. tracheostomy PLAN care noted wean off ventilator decannulate when stable all reviewed monitor lytes labs reviewed IV antibiotics noted respiratory care monitor chest xr critical update medications/laboratory data/nursing notes/ICU care reviewed in detail note reviewed and edited care discussed with RN and RT ICU time spent 35 minutes Critical Care - Subjective Interval Events: underwent decortication and tracheostomy d/w thoracic findings noted ROS Limited/Unobtainable: Yes Condition: critical EKG Rhythm: Sinus Rhythm I&O: Intake and Output 12/01/16 12/02/16 19:00 07:00 Intake Total 1205 ml Output Total 610 ml 844 ml Balance -610 ml 361 ml Intake Free Water 150 ml IV Total 450 ml Tube Feeding 605 ml Output Urine Total 610 ml 660 ml Chest Tube Drainage Total 184 ml Critical Care - Objective Last 24 Hour Vital Signs Date Time Temp Pulse Resp B/P Pulse Ox O2 Delivery O2 Flow Rate FiO2 12/02/16 08:00 99 12/02/16 08:00 99.4 97 22 119/62 100 Mechanical Ventilator 40 12/02/16 07:25 99 13 45 12/02/16 06:00 98 15 115/63 98 Mechanical Ventilator 40 12/02/16 05:23 106 16 45 12/02/16 05:00 106 15 115/63 98 Mechanical Ventilator 40 12/02/16 04:00 98.1 108 16 104/61 100 Mechanical Ventilator 40 12/02/16 04:00 106 12/02/16 03:22 107 16 45 12/02/16 03:00 107 16 103/58 99 Mechanical Ventilator 40 12/02/16 02:00 104 14 98/55 99 Mechanical Ventilator 40 12/02/16 01:08 103 17 45 12/02/16 01:00 103 13 102/59 100 Mechanical Ventilator 40 12/02/16 00:00 90 12/02/16 00:00 98.7 102 13 109/55 100 Mechanical Ventilator 40 12/01/16 23:22 99 17 45 12/01/16 22:00 93 14 105/62 100 Mechanical Ventilator 40 12/01/16 21:30 87 12 45 12/01/16 21:00 93 14 113/68 100 Mechanical Ventilator 40 12/01/16 20:00 92 12/01/16 20:00 35 12/01/16 20:00 97.7 95 16 116/64 100 Mechanical Ventilator 40 12/01/16 19:23 86 12 45 12/01/16 19:00 85 12 114/86 97 Mechanical Ventilator 40 12/01/16 18:47 35 12/01/16 17:57 86 20 100 12/01/16 17:46 89 12 35 12/01/16 12:00 97.0 95 18 124/82 97 Nasal Cannula 4.0 12/01/16 10:48 95 139/82 Labs: Labs Test 11/30/16 07:25 12/01/16 17:40 12/01/16 18:28 12/02/16 05:00 White Blood Count 12.1 K/UL (4.8-10.8) 18.2 K/UL (4.8-10.8) 16.3 K/UL (4.8-10.8) Red Blood Count 3.52 M/UL (4.70-6.10) 2.77 M/UL (4.70-6.10) 2.75 M/UL (4.70-6.10) Hemoglobin 12.1 G/DL (14.2-18.0) 10.1 G/DL (14.2-18.0) 9.7 G/DL (14.2-18.0) Hematocrit 37.0 % (42.0-52.0) 28.9 % (42.0-52.0) 28.2 % (42.0-52.0) Mean Corpuscular Volume 105 FL (80-99) 104 FL (80-99) 102 FL (80-99) Mean Corpuscular Hemoglobin 34.4 PG (27.0-31.0) 36.6 PG (27.0-31.0) 35.3 PG (27.0-31.0) Mean Corpuscular Hemoglobin Concent 32.7 G/DL (32.0-36.0) 35.1 G/DL (32.0-36.0) 34.5 G/DL (32.0-36.0) Red Cell Distribution Width 12.6 % (11.6-14.8) 12.4 % (11.6-14.8) 12.7 % (11.6-14.8) Platelet Count 328 K/UL (150-450) 346 K/UL (150-450) 412 K/UL (150-450) Mean Platelet Volume 7.1 FL (6.5-10.1) 6.9 FL (6.5-10.1) 7.1 FL (6.5-10.1) Neutrophils (%) (Auto) 73.8 % (45.0-75.0) 95.0 % (45.0-75.0) % (45.0-75.0) Lymphocytes (%) (Auto) 17.0 % (20.0-45.0) 2.7 % (20.0-45.0) % (20.0-45.0) Monocytes (%) (Auto) 5.2 % (1.0-10.0) 1.8 % (1.0-10.0) % (1.0-10.0) Eosinophils (%) (Auto) 2.7 % (0.0-3.0) 0.0 % (0.0-3.0) % (0.0-3.0) Basophils (%) (Auto) 1.3 % (0.0-2.0) 0.4 % (0.0-2.0) % (0.0-2.0) Prothrombin Time 10.8 SEC (9.30-11.50) Prothromb Time International Ratio 1.1 (0.9-1.1) Activated Partial Thromboplast Time 24 SEC (23-33) Sodium Level 140 mEQ/L (135-145) 140 mEQ/L (135-145) 139 mEQ/L (135-145) Potassium Level 3.5 mEQ/L (3.4-4.9) 4.0 mEQ/L (3.4-4.9) 4.1 mEQ/L (3.4-4.9) Chloride Level 100 mEQ/L (98-107) 103 mEQ/L (98-107) 103 mEQ/L (98-107) Carbon Dioxide Level 30 mEQ/L (20-30) 22 mEQ/L (20-30) 23 mEQ/L (20-30) Anion Gap 10 (5-15) 15 (5-15) 13 (5-15) Blood Urea Nitrogen 9 mg/dL (7-23) 10 mg/dL (7-23) 13 mg/dL (7-23) Creatinine 0.5 mg/dL (0.7-1.2) 0.7 mg/dL (0.7-1.2) 0.6 mg/dL (0.7-1.2) Estimat Glomerular Filtration Rate > 60 mL/min (>60) > 60 mL/min (>60) > 60 mL/min (>60) Glucose Level 137 mg/dL (74-106) 202 mg/dL (74-106) 193 mg/dL (74-106) Calcium Level 8.3 mg/dL (8.6-10.2) 6.7 mg/dL (8.6-10.2) 7.5 mg/dL (8.6-10.2) Arterial Blood pH 7.386 (7.350-7.450) Arterial Blood Partial Pressure CO2 36.7 mmHg (35.0-45.0) Arterial Blood Partial Pressure O2 65.5 mmHg (75.0-100.0) Arterial Blood HCO3 21.5 mmol/L (22.0-26.0) Arterial Blood Oxygen Saturation 91.4 % (92.0-98.0) Arterial Blood Base Excess -3.1 Dread Test Positive Differential Total Cells Counted 100 Neutrophils % (Manual) 83 % (45-75) Lymphocytes % (Manual) 9 % (20-45) Monocytes % (Manual) 6 % (1-10) Eosinophils % (Manual) 0 % (0-3) Basophils % (Manual) 0 % (0-2) Band Neutrophils 2 % (0-8) Platelet Estimate Adequate Platelet Morphology Normal Hypochromasia 1+ Macrocytosis 1+ Accucheck: 162 DEREJE CASTANO Dec 02, 2016 08:51
[2016-12-02] MEDS: Artificial Tears 1.4% Op Soln BOTH EYES SCH ×2 (09:03→21:01)
--- NOTE | 2016-12-02 10:39 | Diagnostic Imaging Report ---
Indication: Status post tracheostomy and thoracotomy Technique: One view of the chest Comparison: 11/28/2016 Findings: Interim placement of a right chest tube, tip projects at level of the apex of the right hemithorax. There is marked decreased pleural fluid, with only a small amount of residual. No gross pneumothorax. There is a right chest wall and supraclavicular and right neck subcutaneous emphysema. There is persistent parenchymal opacity within the right mid and lower lung. Left lung and pleural space remain clear. Heart size is normal. Tracheostomy placement. No gross pneumomediastinum. Interim placement of a right subclavian central venous catheter, tip projecting at level of the innominate venous confluence. There is apparent prominence of the right upper mediastinum Impression: Interim right chest tube placement, with decreased right pleural effusion. No pneumothorax Right chest wall and supraclavicular and right neck subcutaneous emphysema, presumably related to the above Satisfactory tracheostomy Satisfactory position of right subclavian central venous catheter Right mid and lower lung parenchymal disease, nonspecific of right upper mediastinal prominence, likely an artifact of rotation, may also indicate residual medial fluid or atelectatic lung, less likely mediastinal hematoma. Recommend followup as indicated This agrees with the preliminary interpretation provided overnight by [facility] teleradiology service.
--- NOTE | 2016-12-02 10:42 | General Progress Note ---
Assessment/Plan Problem List: (1) Respiratory failure with hypoxia ICD Codes: J96.91 - Respiratory failure, unspecified with hypoxia SNOMED: 96736966547182294 Qualifiers: Qualified Codes: J96.21 - Acute and chronic respiratory failure with hypoxia (2) Pneumonia ICD Codes: J18.9 - Pneumonia, unspecified organism SNOMED: 255897152 Qualifiers: Qualified Codes: J18.9 - Pneumonia, unspecified organism (3) UTI (urinary tract infection) ICD Codes: N39.0 - Urinary tract infection, site not specified SNOMED: 55274082 Qualifiers: Qualified Codes: N30.00 - Acute cystitis without hematuria (4) Severe sepsis ICD Codes: A41.9 - Sepsis, unspecified organism; R65.20 - Severe sepsis without septic shock SNOMED: 65635699 Status: stable, progressing Assessment/Plan ivf adjusted water flushes monitior bs iv abx follow up cultures suctioning/resp rx gt feeds superficial femoral dvt- place scd on calfs. add subcut heparin Subjective ROS Limited/Unobtainable: Yes Constitutional: Reports: malaise, weakness HEENT: Reports: no symptoms Cardiovascular: Reports: no symptoms Respiratory: Reports: no symptoms Gastrointestinal/Abdominal: Reports: difficulty swallowing Genitourinary: Reports: no symptoms Neurologic/Psychiatric: Reports: pre-existing deficit Endocrine: Reports: no symptoms Hematologic/Lymphatic: Reports: no symptoms Allergies: Coded Allergies: No Known Allergies (Unverified , 11/23/16) All Systems: reviewed and negative except above Subjective s/p uncomplicated right sided vats. trach also replaced. no overnite events. Objective Last 24 Hour Vital Signs Date Time Temp Pulse Resp B/P Pulse Ox O2 Delivery O2 Flow Rate FiO2 12/02/16 10:00 103 15 114/62 100 Mechanical Ventilator 40 12/02/16 09:30 99 17 45 12/02/16 09:01 103 112/67 12/02/16 09:00 102 15 112/67 100 Mechanical Ventilator 40 12/02/16 08:00 99 12/02/16 08:00 35 12/02/16 08:00 99.4 97 22 119/62 100 Mechanical Ventilator 40 12/02/16 07:25 99 13 45 12/02/16 06:00 98 15 115/63 98 Mechanical Ventilator 40 12/02/16 05:23 106 16 45 12/02/16 05:00 106 15 115/63 98 Mechanical Ventilator 40 12/02/16 04:00 98.1 108 16 104/61 100 Mechanical Ventilator 40 12/02/16 04:00 106 12/02/16 03:22 107 16 45 12/02/16 03:00 107 16 103/58 99 Mechanical Ventilator 40 12/02/16 02:00 104 14 98/55 99 Mechanical Ventilator 40 12/02/16 01:08 103 17 45 12/02/16 01:00 103 13 102/59 100 Mechanical Ventilator 40 12/02/16 00:00 90 12/02/16 00:00 98.7 102 13 109/55 100 Mechanical Ventilator 40 12/01/16 23:22 99 17 45 12/01/16 22:00 93 14 105/62 100 Mechanical Ventilator 40 12/01/16 21:30 87 12 45 12/01/16 21:00 93 14 113/68 100 Mechanical Ventilator 40 12/01/16 20:00 92 12/01/16 20:00 35 12/01/16 20:00 97.7 95 16 116/64 100 Mechanical Ventilator 40 12/01/16 19:23 86 12 45 12/01/16 19:00 85 12 114/86 97 Mechanical Ventilator 40 12/01/16 18:47 35 12/01/16 17:57 86 20 100 12/01/16 17:46 89 12 35 12/01/16 12:00 97.0 95 18 124/82 97 Nasal Cannula 4.0 12/01/16 10:48 95 139/82 Intake and Output 12/01/16 12/02/16 19:00 07:00 Intake Total 1205 ml Output Total 610 ml 844 ml Balance -610 ml 361 ml Intake Free Water 150 ml IV Total 450 ml Tube Feeding 605 ml Output Urine Total 610 ml 660 ml Chest Tube Drainage Total 184 ml Laboratory Tests 12/01/16 17:40: White Blood Count 18.2#H, Red Blood Count 2.77L, Hemoglobin 10.1L, Hematocrit 28.9L, Mean Corpuscular Volume 104H, Mean Corpuscular Hemoglobin 36.6H, Mean Corpuscular Hemoglobin Concent 35.1, Red Cell Distribution Width 12.4, Platelet Count 346, Mean Platelet Volume 6.9, Neutrophils (%) (Auto) 95.0H, Lymphocytes ( %) (Auto) 2.7L, Monocytes (%) (Auto) 1.8, Eosinophils (%) (Auto) 0.0, Basophils (%) (Auto) 0.4, Sodium Level 140, Potassium Level 4.0, Chloride Level 103, Carbon Dioxide Level 22, Anion Gap 15, Blood Urea Nitrogen 10, Creatinine 0.7, Estimat Glomerular Filtration Rate > 60, Glucose Level 202H, Calcium Level 6.7L 12/01/16 18:28: Arterial Blood pH 7.386, Arterial Blood Partial Pressure CO2 36.7, Arterial Blood Partial Pressure O2 65.5L, Arterial Blood HCO3 21.5L, Arterial Blood Oxygen Saturation 91.4L, Arterial Blood Base Excess -3.1, Dread Test Positive 12/02/16 05:00: White Blood Count 16.3H, Red Blood Count 2.75L, Hemoglobin 9.7L, Hematocrit 28.2L, Mean Corpuscular Volume 102H, Mean Corpuscular Hemoglobin 35.3H, Mean Corpuscular Hemoglobin Concent 34.5, Red Cell Distribution Width 12.7, Platelet Count 412, Mean Platelet Volume 7.1, Neutrophils (%) (Auto) , Lymphocytes (%) ( Auto) , Monocytes (%) (Auto) , Eosinophils (%) (Auto) , Basophils (%) (Auto) , Sodium Level 139, Potassium Level 4.1, Chloride Level 103, Carbon Dioxide Level 23, Anion Gap 13, Blood Urea Nitrogen 13, Creatinine 0.6L, Estimat Glomerular Filtration Rate > 60, Glucose Level 193H, Calcium Level 7.5L, Differential Total Cells Counted 100, Neutrophils % (Manual) 83H, Lymphocytes % (Manual) 9L, Monocytes % (Manual) 6, Eosinophils % (Manual) 0, Basophils % (Manual) 0, Band Neutrophils 2, Platelet Estimate Adequate, Platelet Morphology Normal, Hypochromasia 1+, Macrocytosis 1+ Height (Feet): 5 Height (Inches): 5.00 Weight (Pounds): 175 Objective General Appearance: WD/WN, confused Neck: supple Cardiovascular: regular rhythm Respiratory/Chest: right sided ct. no wheezes or rales Abdomen: normal bowel sounds, non tender, soft, no organomegaly Edema: no edema noted Arm (L), no edema noted Arm (R), no edema noted Leg (L), no edema noted Leg (R), no edema noted Pedal (L), no edema noted Pedal (R), no edema noted Generalized Skin: warm/dry DESMOND GARCIA Dec 02, 2016 10:42
[2016-12-02] MEDS ORDERED: D5 1/2NS w/KCl 20mEq 1,000 ML IV SCH ×2 (11:00→18:15)
[2016-12-02] MEDS ORDERED: Heparin 5000 units/ml inj SUBQ SCH (11:00)
--- NOTE | 2016-12-02 11:04 | 48 Hour Post Anesthesia Eval ---
Post Anesthesia Evaluation Procedure: Decortication Date of Evaluation: Dec 02, 2016 Time of Evaluation: 06:30 Blood Pressure Systolic: 115 0: 63 Pulse Rate: 98 Respiratory Rate: 15 Temperature (Fahrenheit): 98 O2 Sat by Pulse Oximetry: 98 Airway: other - intubated, on ventilator Nausea: No Vomiting: No Pain Intensity: 0 Hydration Status: adequate Cardiopulmonary Status: at baseline Mental Status/LOC: patient returned to baseline Post-Anesthesia Complications: 0 Follow-up care needed: N/A - further care as per primary team LINDA ALBA M.D. Dec 02, 2016 11:04
--- NOTE | 2016-12-02 11:38 | General Progress Note ---
Progress Note Progress Note AfebVSS R CT 200 cc over night with no airleaks CXR showed improving aeration WBC [address] on suction CXR & CBC in AM RUTH ELLISON M.D. Dec 02, 2016 11:38
--- NOTE | 2016-12-02 11:45 | Brief Operative Note ---
Immediate Post Operative Note Operative Note Pre-op Diagnosis: Right loculated effusion Procedure: R thoracotomy, decortication Post-op Diagnosis: same Post-op Diagnosis: same as pre-op Findings: consistent w/pre-op dx studies Surgeon: Damien Anesthesiologist: Eric Anesthesia: general Specimen: yes Complications: none Condition: stable Estimated Blood Loss: minimal Drains: other Implant(s) used?: No RUTH ELLISON M.D. Dec 02, 2016 11:45
--- NOTE | 2016-12-02 11:55 | Infectious Diseases Prog Note ---
"Assessment/Plan Assessment/Plan antibiotics : ertapenem A 1. pneumonia 2. loculated pleural effusion s/p thoracentesis s/p VATS | decortication 3. DM 4. respiratory failure 5. right arm cellulitis P 1. continue ertapenem 2. start iv vancomycin 3. will follow up cultures Subjective ROS Limited/Unobtainable: Yes Allergies: Coded Allergies: No Known Allergies (Unverified , 11/23/16) Objective Vital Signs Last 24 Hour Vital Signs Date Time Temp Pulse Resp B/P Pulse Ox O2 Delivery O2 Flow Rate FiO2 12/02/16 11:25 104 18 45 12/02/16 11:15 98 12 120/63 100 Mechanical Ventilator 40 12/02/16 11:04 98 15 98 12/02/16 10:00 103 15 114/62 100 Mechanical Ventilator 40 12/02/16 09:30 99 17 45 12/02/16 09:01 103 112/67 12/02/16 09:00 102 15 112/67 100 Mechanical Ventilator 40 12/02/16 08:00 99 12/02/16 08:00 35 12/02/16 08:00 99.4 97 22 119/62 100 Mechanical Ventilator 40 12/02/16 07:25 99 13 45 12/02/16 06:00 98 15 115/63 98 Mechanical Ventilator 40 12/02/16 05:23 106 16 45 12/02/16 05:00 106 15 115/63 98 Mechanical Ventilator 40 12/02/16 04:00 98.1 108 16 104/61 100 Mechanical Ventilator 40 12/02/16 04:00 106 12/02/16 03:22 107 16 45 12/02/16 03:00 107 16 103/58 99 Mechanical Ventilator 40 12/02/16 02:00 104 14 98/55 99 Mechanical Ventilator 40 12/02/16 01:08 103 17 45 12/02/16 01:00 103 13 102/59 100 Mechanical Ventilator 40 12/02/16 00:00 90 12/02/16 00:00 98.7 102 13 109/55 100 Mechanical Ventilator 40 12/01/16 23:22 99 17 45 12/01/16 22:00 93 14 105/62 100 Mechanical Ventilator 40 12/01/16 21:30 87 12 45 12/01/16 21:00 93 14 113/68 100 Mechanical Ventilator 40 12/01/16 20:00 92 12/01/16 20:00 35 12/01/16 20:00 97.7 95 16 116/64 100 Mechanical Ventilator 40 12/01/16 19:23 86 12 45 12/01/16 19:00 85 12 114/86 97 Mechanical Ventilator 40 12/01/16 18:47 35 12/01/16 17:57 86 20 100 12/01/16 17:46 89 12 35 12/01/16 12:00 97.0 95 18 124/82 97 Nasal Cannula 4.0 Height (Feet): 5 Height (Inches): 5.00 Weight (Pounds): 175 HEENT: status post trach Respiratory/Chest: lungs clear, other - right CT Cardiovascular: normal rate, regular rhythm, no gallop/murmur Abdomen: soft, non tender, other - GT Extremities: other - + edema, right arm erythema, right subclavian catheter Microbiology Date/Time Source Procedure Growth Status 12/01/16 21:00 Lung Right Gram Stain - Final Resulted 12/01/16 21:00 Lung Right Aerobic Culture Pending Resulted 12/01/16 21:00 Lung Right Anaerobic Culture Pending Resulted 12/01/16 16:16 Lung Right Gram Stain - Final Resulted 12/01/16 16:16 Lung Right Aerobic Culture - Preliminary NO GROWTH Resulted 12/01/16 16:16 Lung Right Anaerobic Culture Pending Resulted Current Medications Medications (Trade) Dose Ordered Sig/Pierre Route PRN Reason Start Time Stop Time Status Last Admin Dose Admin Acetaminophen (Tylenol) 650 mg Q4H PRN ORAL Mild Pain/Temp > 100.5 12/01/16 16:00 12/31/16 15:59 Al Hydroxide/Mg Hydroxide (Mylanta) 30 ml Q4HR PRN ORAL Per rx protocol 12/01/16 17:00 12/31/16 16:59 Amlodipine Besylate (Norvasc) 2.5 mg DAILY ORAL 12/02/16 09:00 01/01/17 08:59 12/02/16 09:01 Artificial Tears (Akwa-Tears) 2 drop Q12HR BOTH EYES 12/01/16 21:00 12/31/16 20:59 12/02/16 09:03 Dextrose (Dextrose 50%) STAT PRN IV Hypoglycemia 12/01/16 21:15 12/31/16 21:14 Dextrose/ Electrolytes (D5 0.45%NS W/ KCl 20mEq) 1,000 ml @ 45 mls/hr Q47A04H IV 12/01/16 20:00 12/31/16 19:59 12/01/16 20:09 Ertapenem/Sodium Chloride (INVanz/Sodium Chloride) 110 ml @ 220 mls/hr Q24H IVPB 12/02/16 13:00 12/05/16 12:59 Heparin Sodium (Porcine) (Heparin 5000 units/ml) 5,000 units EVERY 12 HOURS SUBQ 12/02/16 11:00 01/01/17 10:59 12/02/16 11:41 Insulin Aspart (NovoLOG) Q6HR SUBQ 12/01/16 18:00 12/31/16 17:59 12/02/16 11:40 Morphine Sulfate 3 mg 3 mg Q4H PRN IVP PAIN 4-10 12/01/16 18:15 12/08/16 18:14 Pantoprazole (Protonix) 40 mg DAILY ORAL 12/02/16 09:00 01/01/17 08:59 12/02/16 09:02 HELDER ZAMORA Dec 02, 2016 11:55"
[2016-12-02] MEDS ORDERED: Ertapenem 1 GM in NS 110 ML IVPB SCH (13:00)
--- NOTE | 2016-12-02 13:37 | Cardiology Report ---
APPROVED REPORT EKG Measurement Heart [id number] CT 142P7 [id number] Sinus tachycardia Otherwise normal ECG
[2016-12-02] MEDS ORDERED: Vancomycin 1.5 GM in NS 325 ML IVPB SCH (14:00)
--- NOTE | 2016-12-02 14:29 | Operative Note - Dictated ---
DATE OF OPERATION: 12/01/2016 SURGEON: Fletcher Quezada M.D., Thoracic Surgery. PREOPERATIVE DIAGNOSIS: Right loculated pleural effusion. POSTOPERATIVE DIAGNOSIS: Right loculated pleural effusion. PROCEDURE PERFORMED: 1. Flexible bronchoscopy. 2. Right video-assisted thoracoscopic surgery with conversion to a mini thoracotomy. 3. Intrapleural pneumolysis. 4. Partial pleurectomy. 5. Decortication. 6. Primary repair of right lower lobe parenchymal air leak. 7. Intercostal nerve block. ANESTHESIA: Double-lumen general anesthesia. INDICATION FOR PROCEDURE: The patient is a 66-year-old male, who was admitted to [facility] with respiratory symptoms. Workup including a chest CT scan demonstrated a right loculated pleural effusion with multiple air-fluid levels. Thoracic Surgery was consulted for definitive surgical care. The risks and benefits of the proposed operation were explained to the patient's family in detail including, but not limited to bleeding, infection, air leak, need for blood transfusion, anesthetic complication, and less than 1%. In addition, alternatives versus no treatment options were also discussed. The patient fully understands the rationale. The patient's family fully understands the rationale behind the purpose of the operation. All questions answered to their satisfaction. DESCRIPTION OF PROCEDURE: After obtaining informed consent, the patient was then brought to the operating room and placed in a supine position and a surgical time-out was performed. After induction of general anesthesia, an arterial line and central line as well as ANGELA hose stockings were placed. The flexible bronchoscope was introduced through the endotracheal tube. The trachea and selma were inspected. The selma was midline sharp. The right tracheobronchial tube down to the subsegmental level was grossly normal and no endobronchial lesions were seen. Similarly, the left mainstem bronchus was intubated and no obvious endobronchial lesions were visualized at the subsegmental level. A minimal amount of mucopurulent secretions were lavaged and suctioned clear. The bronchoscope was pulled back and removed. The patient tolerated the procedure well with oxygen saturation greater than 96% throughout the procedure. Next, the patient was then placed in a left lateral decubitus position and prepped and draped in the usual sterile fashion. The patient also received preoperative intravenous antibiotics. A 1.5 cm incision was made at the fifth intercostal space to midaxillary line. Dissection was then carried down into the subcutaneous tissue. Placing a Yankeur suction into the right hemithorax yielded roughly 20 mL of pleural effusion and this was submitted for microbiologic analysis. After placement of Trocar as well as a video camera into the right hemithorax, there were numerous adhesions indicative of severe infection in the right chest. It was felt that the video-assisted approach would be limited due to the lack of visualization. As such, a decision was to convert to a mini thoracotomy for a better visualization. A posterolateral mini thoracotomy was fashioned. Dissection was then carried down into the subcutaneous tissue. The muscle layer was divided sharply and the chest was entered via the 5th intercostal space in the usual fashion. After placement of retractor, we then proceeded to suction various pockets of loculated fluid. There were numerous pleural exudates that were debrided off the chest wall. The parietal pleura appeared to be grossly infected and a vaccine customer representative section of this parietal pleura was then harvested and delivered off the field for microbiology analysis as well as for pathology. The lung was noted to be coated with visceral peel. As such, decortication process was then begun beginning in the right upper lobe anteriorly, and we worked our way posteolaterally. Similarly, the right middle as well as the right lower lobe also underwent decortication in a similar process. At the end of the procedure, the entire right chest was irrigated with 4 liters of warm saline solution. After suctioning, the major as well as the minor fissure was then explored and loculations were lysed. The right lower lobe was then from the diaphragm and and the costophrenic angle was then explored and found no hidden loculations. The entire right chest was then again irrigated with 6 liters of bacitracin and Flagyl-containing saline solution. After suctioning, we noticed that there was a small parenchymal air leak in the right lower lobe secondary to the decortication process. As such, this parenchymal air leak was sutured primarily using a 3-0 running Prolene. At the end of the procedure, 40 mL of 0.25% Marcaine was then injected into the second through the eighth intercostal space in the usual fashion. A 28-[place]an chest tube was inserted into the right hemithorax and directly at the apex and then anchored at the skin level using #0 Ethibond sutures. The chest tube was then connected to a suction Pleur-evac. The ribs were then reapproximated with #1 Vicryl in a [id number] configuration. Under direct visualization, the right lung was allowed to inflate and the rib sutures were brought down and tied. The muscle layer was then reapproximated with #0 running Vicryl and the subcutaneous layer was then reapproximated with two layers of 3-0 Vicryl and the skin was reapproximated with 4-0 Monocryl. Steri-Strips and dry dressing was applied. The patient tolerated the procedure well without any complications. Needle and sponge counts were correct. At the end of the operation, he was transported to the intensive care unit in a satisfactory condition. ESTIMATED BLOOD LOSS: Minimal. COMPLICATIONS: None. SPECIMEN SUBMITTED: Right parietal pleura for microbiologic analysis and pathology. Swift M.D. DR: Jose JOB#: [id number] CC: [id number]
[2016-12-02] MEDS ORDERED: Morphine Sulfate 2mg/ml Inj IVP PRN (15:00)
[2016-12-02] MEDS: D5 1/2NS w/KCl 20mEq 1,000 ML IV SCH (16:25)
[2016-12-02] MEDS ORDERED: Sterile Water Irrig 1000ml IRRIG ONE (16:49)
[2016-12-02 17:38] LABS: REFLEX LACTIC ACID YES OR NO YES
[2016-12-02] MEDS: Heparin 5000 units/ml inj SUBQ SCH (21:03)
--- NOTE | 2016-12-02 21:43 | Diagnostic Imaging Report ---
APPROVED REPORT CPT Code: 01803 Present Symptoms Shortness of breath RIGHT LEG: Venous imaging reveals recanalized chronic thrombus in the superficial femoral vein. Large collateral vein noted anterior to the superficial femoral artery. The remainder of the deep venous system is within normal limits. There is no evidence of thrombus in the common femoral, popliteal or calf veins. The greater saphenous vein is also within normal limits. Doppler indicates normal spontaneous flow within these segments. LEFT LEG: Venous imaging reveals a patent deep venous system. There is no evidence of thrombus within the femoral, popliteal or tibial segments. The greater saphenous vein is also within normal limits. Doppler indicates normal spontaneous flow within these segments. There is no evidence of acute deep vein thrombosis.
[2016-12-03] VITALS: BP 145/89
[2016-12-03 04:13] VITALS: BP 130/83
[2016-12-03] MEDS: NovoLOG Insulin Flexpen SUBQ SCH ×3 (05:41→17:50)
[2016-12-03 08:00] VITALS: BP 123/79
[2016-12-03] MEDS: Artificial Tears 1.4% Op Soln BOTH EYES SCH ×2 (08:28→21:20)
[2016-12-03] MEDS: Heparin 5000 units/ml inj SUBQ SCH ×2 (08:31→21:21)
--- NOTE | 2016-12-03 08:48 | General Progress Note ---
Assessment/Plan Problem List: (1) Respiratory failure with hypoxia ICD Codes: J96.91 - Respiratory failure, unspecified with hypoxia SNOMED: [id number] Qualifiers: Qualified Codes: J96.21 - Acute and chronic respiratory failure with hypoxia (2) Pneumonia ICD Codes: J18.9 - Pneumonia, unspecified organism SNOMED: 962135107 Qualifiers: Qualified Codes: J18.9 - Pneumonia, unspecified organism (3) UTI (urinary tract infection) ICD Codes: N39.0 - Urinary tract infection, site not specified SNOMED: 56447859 Qualifiers: Qualified Codes: N30.00 - Acute cystitis without hematuria (4) Severe sepsis ICD Codes: A41.9 - Sepsis, unspecified organism; R65.20 - Severe sepsis without septic shock SNOMED: 03426081 Status: stable, progressing Assessment/Plan ivf adjusted water flushes monitior bs iv abx follow up cultures suctioning/resp rx gt feeds superficial femoral dvt- place scd on calfs. add subcut heparin ct management per thoracic Subjective ROS Limited/Unobtainable: Yes Constitutional: Reports: malaise, weakness HEENT: Reports: no symptoms Cardiovascular: Reports: no symptoms Respiratory: Reports: cough Gastrointestinal/Abdominal: Reports: difficulty swallowing Genitourinary: Reports: no symptoms Neurologic/Psychiatric: Reports: pre-existing deficit, seizure Endocrine: Reports: no symptoms Hematologic/Lymphatic: Reports: no symptoms Allergies: Coded Allergies: No Known Allergies (Unverified , 11/23/16) All Systems: reviewed and negative except above Subjective s/p uncomplicated right sided vats. trach also replaced. no overnite events. still with chest tube. no leak Objective Last 24 Hour Vital Signs Date Time Temp Pulse Resp B/P Pulse Ox O2 Delivery O2 Flow Rate FiO2 12/03/16 08:28 98 130/83 12/03/16 07:14 102 17 45 12/03/16 05:26 102 16 45 12/03/16 04:13 99.5 107 17 130/83 99 Mechanical Ventilator 45 12/03/16 04:00 35 12/03/16 04:00 105 12/03/16 03:12 109 19 45 12/03/16 01:23 117 31 45 12/03/16 00:00 99.5 117 22 145/89 99 Mechanical Ventilator 45 12/03/16 00:00 114 12/03/16 00:00 35 12/02/16 23:12 110 21 45 12/02/16 21:12 115 29 45 12/02/16 20:00 35 12/02/16 20:00 99.8 113 14 151/88 98 Mechanical Ventilator 45 12/02/16 19:52 110 12/02/16 19:10 109 25 45 12/02/16 17:30 99 14 45 12/02/16 16:52 108 12/02/16 16:49 99.9 111 14 134/82 98 Mechanical Ventilator 45 12/02/16 16:00 35 12/02/16 15:27 110 15 45 12/02/16 15:00 107 18 122/69 100 Mechanical Ventilator 45 12/02/16 14:00 108 18 124/78 100 Mechanical Ventilator 45 12/02/16 13:26 107 13 45 12/02/16 13:00 105 15 129/62 100 Mechanical Ventilator 45 12/02/16 12:00 99 12/02/16 12:00 99.2 106 20 118/74 100 Mechanical Ventilator 40 12/02/16 12:00 35 12/02/16 11:25 104 18 45 12/02/16 11:15 98 12 120/63 100 Mechanical Ventilator 40 12/02/16 11:04 98 15 98 12/02/16 10:00 103 15 114/62 100 Mechanical Ventilator 40 12/02/16 09:30 99 17 45 12/02/16 09:01 103 112/67 12/02/16 09:00 102 15 112/67 100 Mechanical Ventilator 40 Intake and Output 12/02/16 12/03/16 19:00 07:00 Intake Total 1280 ml 1195 ml Output Total 608 ml 2245 ml Balance 672 ml -1050 ml Intake Free Water 100 ml 50 ml IV Total 470 ml 540 ml Tube Feeding 660 ml 605 ml Other 50 ml Output Urine Total 560 ml 2200 ml Chest Tube Drainage Total 48 ml 45 ml Laboratory Tests 12/02/16 16:50: Lactic Acid Level 2.10 12/02/16 19:00: Lactic Acid Level 2.00 Height (Feet): 5 Height (Inches): 5.00 Weight (Pounds): 175 Objective General Appearance: WD/WN, confused Neck: supple Cardiovascular: regular rhythm Respiratory/Chest: right sided ct. no wheezes or rales Abdomen: normal bowel sounds, non tender, soft, no organomegaly Edema: no edema noted Arm (L), no edema noted Arm (R), no edema noted Leg (L), no edema noted Leg (R), no edema noted Pedal (L), no edema noted Pedal (R), no edema noted Generalized Skin: warm/dry DESMOND GARCIA Dec 03, 2016 08:48
--- NOTE | 2016-12-03 09:50 | Infectious Diseases Prog Note ---
"Assessment/Plan Assessment/Plan antibiotics : vancomycin iv, ertapenem A 1. pneumonia 2. loculated pleural effusion s/p thoracentesis s/p VATS | decortication 3. DM 4. respiratory failure 5. right arm cellulitis P 1. continue ertapenem, iv vancomycin 2. will follow up cultures Subjective ROS Limited/Unobtainable: Yes Allergies: Coded Allergies: No Known Allergies (Unverified , 11/23/16) Objective Vital Signs Last 24 Hour Vital Signs Date Time Temp Pulse Resp B/P Pulse Ox O2 Delivery O2 Flow Rate FiO2 12/03/16 09:09 97 21 45 12/03/16 08:28 98 130/83 12/03/16 08:00 97.7 103 19 123/79 100 Mechanical Ventilator 45 12/03/16 08:00 35 12/03/16 07:14 102 17 45 12/03/16 05:26 102 16 45 12/03/16 04:13 99.5 107 17 130/83 99 Mechanical Ventilator 45 12/03/16 04:00 35 12/03/16 04:00 105 12/03/16 03:12 109 19 45 12/03/16 01:23 117 31 45 12/03/16 00:00 99.5 117 22 145/89 99 Mechanical Ventilator 45 12/03/16 00:00 114 12/03/16 00:00 35 12/02/16 23:12 110 21 45 12/02/16 21:12 115 29 45 12/02/16 20:00 35 12/02/16 20:00 99.8 113 14 151/88 98 Mechanical Ventilator 45 12/02/16 19:52 110 12/02/16 19:10 109 25 45 12/02/16 17:30 99 14 45 12/02/16 16:52 108 12/02/16 16:49 99.9 111 14 134/82 98 Mechanical Ventilator 45 12/02/16 16:00 35 12/02/16 15:27 110 15 45 12/02/16 15:00 107 18 122/69 100 Mechanical Ventilator 45 12/02/16 14:00 108 18 124/78 100 Mechanical Ventilator 45 12/02/16 13:26 107 13 45 12/02/16 13:00 105 15 129/62 100 Mechanical Ventilator 45 12/02/16 12:00 99 12/02/16 12:00 99.2 106 20 118/74 100 Mechanical Ventilator 40 12/02/16 12:00 35 12/02/16 11:25 104 18 45 12/02/16 11:15 98 12 120/63 100 Mechanical Ventilator 40 12/02/16 11:04 98 15 98 12/02/16 10:00 103 15 114/62 100 Mechanical Ventilator 40 Height (Feet): 5 Height (Inches): 5.00 Weight (Pounds): 175 HEENT: status post trach Respiratory/Chest: lungs clear, other - right CT Cardiovascular: normal rate, regular rhythm, no gallop/murmur Abdomen: soft, non tender, other - GT Extremities: other - + edema, right subclavian Microbiology Date/Time Source Procedure Growth Status 12/01/16 21:00 Lung Right Gram Stain - Final Resulted 12/01/16 21:00 Lung Right Aerobic Culture Pending Resulted 12/01/16 21:00 Lung Right Anaerobic Culture - Preliminary NO GROWTH AFTER 24 HOURS Resulted 12/01/16 16:16 Lung Right Gram Stain - Final Resulted 12/01/16 16:16 Lung Right Aerobic Culture - Preliminary NO GROWTH Resulted 12/01/16 16:16 Lung Right Anaerobic Culture - Preliminary NO GROWTH AFTER 24 HOURS Resulted Laboratory Tests Test 12/02/16 16:50 12/02/16 19:00 Lactic Acid Level 2.10 mmol/L (0.66-2.22) 2.00 mmol/L (0.66-2.22) HELDER ZAMORA Dec 03, 2016 09:50"
--- NOTE | 2016-12-03 10:09 | Pulmonology Progress Note ---
Assessment/Plan Assessment/Plan IMPRESSIONS: 1. Pneumonia. 2. Respiratory failure 3. Hypertension. 4. Sinus tachycardia without fevers. 5. Possible sepsis. 6. Lactic acidemia. 7. History of seizures. 8. History of chronic encephalopathy. 9. hypernatremia 10. pleural effusion s/p decortication 11. trach PLAN care noted wean off ventilator decannulate if able monitor lytes labs reviewed IV antibiotics noted; ID reviewed thoracic apprecaited respiratory care all reviewed and discussed impression, plan, and exam edited and reviewed in detail care discussed with RN Subjective ROS Limited/Unobtainable: Yes Allergies: Coded Allergies: No Known Allergies (Unverified , 11/23/16) Subjective comfortable on ventilator poor LOC transferred to [facility] Objective Last 24 Hour Vital Signs Date Time Temp Pulse Resp B/P Pulse Ox O2 Delivery O2 Flow Rate FiO2 12/03/16 09:09 97 21 45 12/03/16 08:28 98 130/83 12/03/16 08:00 97.7 103 19 123/79 100 Mechanical Ventilator 45 12/03/16 08:00 35 12/03/16 07:14 102 17 45 12/03/16 05:26 102 16 45 12/03/16 04:13 99.5 107 17 130/83 99 Mechanical Ventilator 45 12/03/16 04:00 35 12/03/16 04:00 105 12/03/16 03:12 109 19 45 12/03/16 01:23 117 31 45 12/03/16 00:00 99.5 117 22 145/89 99 Mechanical Ventilator 45 12/03/16 00:00 114 12/03/16 00:00 35 12/02/16 23:12 110 21 45 12/02/16 21:12 115 29 45 12/02/16 20:00 35 12/02/16 20:00 99.8 113 14 151/88 98 Mechanical Ventilator 45 12/02/16 19:52 110 12/02/16 19:10 109 25 45 12/02/16 17:30 99 14 45 12/02/16 16:52 108 12/02/16 16:49 99.9 111 14 134/82 98 Mechanical Ventilator 45 12/02/16 16:00 35 12/02/16 15:27 110 15 45 12/02/16 15:00 107 18 122/69 100 Mechanical Ventilator 45 12/02/16 14:00 108 18 124/78 100 Mechanical Ventilator 45 12/02/16 13:26 107 13 45 12/02/16 13:00 105 15 129/62 100 Mechanical Ventilator 45 12/02/16 12:00 99 12/02/16 12:00 99.2 106 20 118/74 100 Mechanical Ventilator 40 12/02/16 12:00 35 12/02/16 11:25 104 18 45 12/02/16 11:15 98 12 120/63 100 Mechanical Ventilator 40 12/02/16 11:04 98 15 98 Intake and Output 12/02/16 12/03/16 19:00 07:00 Intake Total 1280 ml 1250 ml Output Total 608 ml 2245 ml Balance 672 ml -995 ml Intake Free Water 100 ml 50 ml IV Total 470 ml 540 ml Tube Feeding 660 ml 660 ml Other 50 ml Output Urine Total 560 ml 2200 ml Chest Tube Drainage Total 48 ml 45 ml Objective GENERAL: The patient is a well-developed male, chronically ill, chronically debilitated. reduced LOC HEENT: Normocephalic and atraumatic. Pupils are sluggish. NECK: Supple. LUNGS: scattered rhonchi. Moderate air entry. reduced right; on ventilator CARDIAC: S1 and S2. RRR The patient without murmurs, rubs, or gallops. ABDOMEN: Otherwise soft, nontender, and nondistended. GT EXTREMITIES: No cyanosis, clubbing, or edema. NEUROLOGIC: Grossly nonfocal. reviewed and edited lines noted Microbiology Date/Time Source Procedure Growth Status 12/01/16 21:00 Lung Right Gram Stain - Final Resulted 12/01/16 21:00 Lung Right Aerobic Culture Pending Resulted 12/01/16 21:00 Lung Right Anaerobic Culture - Preliminary NO GROWTH AFTER 24 HOURS Resulted 12/01/16 16:16 Lung Right Gram Stain - Final Resulted 12/01/16 16:16 Lung Right Aerobic Culture - Preliminary NO GROWTH Resulted 12/01/16 16:16 Lung Right Anaerobic Culture - Preliminary NO GROWTH AFTER 24 HOURS Resulted Laboratory Tests 12/02/16 16:50: Lactic Acid Level 2.10 12/02/16 19:00: Lactic Acid Level 2.00 Current Medications Medications (Trade) Dose Ordered Sig/Pierre Route PRN Reason Start Time Stop Time Status Last Admin Dose Admin Acetaminophen (Tylenol) 650 mg Q4H PRN ORAL Mild Pain/Temp > 100.5 12/02/16 16:00 01/01/17 15:59 Al Hydroxide/Mg Hydroxide (Mylanta) 30 ml Q4H PRN ORAL Per rx protocol 12/02/16 17:00 01/01/17 16:59 Amlodipine Besylate (Norvasc) 2.5 mg DAILY ORAL 12/03/16 09:00 01/02/17 08:59 12/03/16 08:28 Artificial Tears (Akwa-Tears) 2 drop Q12HR BOTH EYES 12/02/16 21:00 01/01/17 20:59 12/03/16 08:28 Dextrose (Dextrose 50%) STAT PRN IV Hypoglycemia 12/02/16 16:00 01/01/17 15:59 Dextrose/ Electrolytes 1,000 ml @ 45 mls/hr [id number] IV 12/02/16 15:30 01/01/17 15:29 12/02/16 16:25 Ertapenem 1 gm/ Sodium Chloride 110 ml @ 220 mls/hr Q24H IVPB 12/03/16 13:00 12/08/16 12:59 Heparin Sodium (Porcine) (Heparin 5000 units/ml) 5,000 units EVERY 12 HOURS SUBQ 12/02/16 21:00 01/01/17 20:59 12/03/16 08:31 Insulin Aspart (NovoLOG) Q6HR SUBQ 12/02/16 18:00 01/01/17 17:59 12/03/16 05:41 Morphine Sulfate (Morphine Sulfate) 3 mg Q4H PRN IVP PAIN 4-10 12/02/16 15:00 12/09/16 14:59 Pantoprazole (Protonix) 40 mg DAILY ORAL 12/03/16 09:00 01/02/17 08:59 12/03/16 08:28 Vancomycin HCl (Vanco rx to dose) 1 ea DAILY PRN MISC Per rx protocol 12/02/16 16:00 01/01/17 15:59 Vancomycin HCl/ Sodium Chloride (Vancomycin/ Sodium Chloride) 325 ml @ 162.5 mls/ hr Q24H IVPB 12/03/16 14:00 12/08/16 13:59 DEREJE CASTANO Dec 03, 2016 10:09
--- NOTE | 2016-12-03 10:33 | General Progress Note ---
Progress Note Progress Note AfebVSS Right CT with minimal drainage CXR no ptx Cont CT on suction Will follow RUTH ELLISON M.D. Dec 03, 2016 10:33
--- NOTE | 2016-12-03 11:33 | Wound Care Consultation ---
Wound Assessment Wound Assessment #1: Wound Number: #1 Wound Present on Admission: Yes New Wound: No Status Change of Wound: No Wound Location Body Site Modif: left, anterior Wound Location Body Site: other - neck Wound Type: blister - ruptured blister with no flap ,noted wound bed pink. Yfn Test: Does not Fyn Wound Thickness: Partial Thickness Wound Length: 1.0 Wound Width: 1.0 Wound Depth: 0.1 Percent of Wound Lawtell/Red: 100 Wound Drainage Description: Serosanguineous Wound Drainage Amount: Scant Wound Drainage Odor: None/Absent Tissue Surrounding Wound: Erythemic Wound General Appearance: Reddened Wound Assessment #2: Wound Number: #2 Wound Present on Admission: No New Wound: Yes Status Change of Wound: No Wound Location Body Site Modif: right, upper Wound Location Body Site: abdomen Wound Type: blister - scattered ruptured with no flap and closed blisters Yfn Test: Does not Yfn Wound Thickness: Partial Thickness Wound Length: 10.0 Wound Width: 2.0 Wound Depth: 0.1 Percent of Wound Lawtell/Red: 100 Wound Drainage Description: Serosanguineous Wound Drainage Amount: Scant Wound Drainage Odor: None/Absent Tissue Surrounding Wound: Erythemic Wound General Appearance: Reddened - noted scattered ruptured and closed blisters, ruptures blisters noted wound bed pink , closed blisters noted filled with clear serous fluid. Wound Assessment #3: Wound Number: #3 Wound Present on Admission: No New Wound: Yes Status Change of Wound: No Wound Location Body Site Modif: right, lower Wound Location Body Site: abdomen Wound Type: blister - ruptured with no flap and serous filled blisters. Yfn Test: Does not Yfn Wound Thickness: Partial Thickness Wound Length: 5.0 Wound Width: 2.5 Wound Depth: 0.1 Percent of Wound Lawtell/Red: 100 Wound Drainage Description: Serosanguineous Wound Drainage Amount: Scant Wound Drainage Odor: None/Absent Tissue Surrounding Wound: Erythemic Wound General Appearance: Reddened Wound Comment #1 left anterior neck ruptured blister with pink wound bed. #2 right upper abdomen scattered serous filled and ruptured blisters. #3 right lower abdomen scattered serous filled and ruptured blisters. Recommendation -Local wound care as ordered,lightly use tape. -Keep clean and dry. -Turn and reposition. -Optimize nutrition. -Heel protectors. -Avoid shear and friction. -Assess and notify MD for any changes of condition noted. KATHIA YBARRA Dec 03, 2016 11:33
[2016-12-03 12:00] VITALS: BP 130/71
[2016-12-03] MEDS: Ertapenem 1 GM in NS 110 ML IVPB SCH (12:15)
[2016-12-03] MEDS: D5 1/2NS w/KCl 20mEq 1,000 ML IV SCH (12:18)
[2016-12-03 12:29] LABS: ABG ALLEN TEST POSITIVE; ABG BASE EXCESS 3.9; ABG PCO2 34.7 mmHg (35.0-45.0)
[2016-12-03] MEDS ORDERED: Vancomycin 1.5 GM in NS 325 ML IVPB SCH (14:00)
[2016-12-03 16:47] VITALS: BP 133/78
[2016-12-03 20:00] VITALS: BP 141/81
[2016-12-04] VITALS: BP 149/81
[2016-12-04] MEDS: NovoLOG Insulin Flexpen SUBQ SCH ×4 (00:26→18:34)
[2016-12-04] MEDS: Vancomycin 1.5 GM in NS 325 ML IVPB SCH ×2 (03:50→15:14)
[2016-12-04 04:00] VITALS: BP 143/78
[2016-12-04 08:00] VITALS: BP 141/78
[2016-12-04] MEDS: Artificial Tears 1.4% Op Soln BOTH EYES SCH ×2 (09:00→21:07)
[2016-12-04] MEDS: Heparin 5000 units/ml inj SUBQ SCH ×2 (09:40→21:28)
--- NOTE | 2016-12-04 09:46 | Infectious Diseases Prog Note ---
Assessment/Plan Assessment/Plan A: sepsis Pneumonia Elevated transaminase Encephalopathy Pleural effusion, s/p decortication R arm cellulitis DM Cholelithiasis P: continue Ertapenem & Vancomycin Subjective ROS Limited/Unobtainable: Yes Allergies: Coded Allergies: No Known Allergies (Unverified , 11/23/16) Objective Vital Signs Last 24 Hour Vital Signs Date Time Temp Pulse Resp B/P Pulse Ox O2 Delivery O2 Flow Rate FiO2 12/04/16 08:00 98.1 89 22 141/78 98 Mechanical Ventilator 12/04/16 08:00 89 12/04/16 07:56 40 12/04/16 04:00 98.8 100 16 143/78 95 Room Air 12/04/16 04:00 40 12/04/16 03:34 92 12/04/16 01:15 98 T-piece 10.0 35 12/04/16 01:15 T-piece 10.0 35 12/04/16 00:00 98.2 98 16 149/81 97 Mechanical Ventilator 12/04/16 00:00 40 12/03/16 23:38 99 12/03/16 20:00 97.9 93 24 141/81 98 T-piece 12/03/16 20:00 40 12/03/16 20:00 99 12/03/16 18:58 T-piece 10.0 35 12/03/16 18:57 99 T-piece 10.0 35 12/03/16 16:47 99.5 104 20 133/78 99 T-piece 12/03/16 16:00 97 12/03/16 16:00 40 12/03/16 12:00 106 12/03/16 12:00 97.7 106 26 130/71 95 Trach Collar 40 12/03/16 12:00 40 12/03/16 10:45 101 Height (Feet): 5 Height (Inches): 5.00 Weight (Pounds): 175 HEENT: status post trach Respiratory/Chest: other - on T bar, R chest tube Cardiovascular: normal rate Abdomen: soft, non tender, other - G feeding Extremities: no edema Skin: ulcers, other - opened blisters Neurologic/Psychiatric: unresponsiveness Microbiology Date/Time Source Procedure Growth Status 12/01/16 21:00 Lung Right Gram Stain - Final Resulted 12/01/16 21:00 Lung Right Aerobic Culture - Preliminary NO GROWTH AFTER 24 HOURS Resulted 12/01/16 21:00 Lung Right Anaerobic Culture - Preliminary NO GROWTH AFTER 24 HOURS Resulted 12/01/16 16:16 Lung Right Gram Stain - Final Resulted 12/01/16 16:16 Lung Right Aerobic Culture - Preliminary NO GROWTH AFTER 24 HOURS Resulted 12/01/16 16:16 Lung Right Anaerobic Culture - Preliminary NO GROWTH AFTER 24 HOURS Resulted Laboratory Tests Test 12/03/16 12:10 12/04/16 01:05 Arterial Blood pH 7.500 (7.350-7.450) Arterial Blood Partial Pressure CO2 34.7 mmHg (35.0-45.0) L Arterial Blood Partial Pressure O2 74.7 mmHg (75.0-100.0) L Arterial Blood HCO3 26.9 mmol/L (22.0-26.0) H Arterial Blood Oxygen Saturation 94.9 % (92.0-98.0) Arterial Blood Base Excess 3.9 Dread Test Positive Vancomycin Level Trough 6.1 ug/mL (5.0-12.0) Current Medications Medications (Trade) Dose Ordered Sig/Pierre Route PRN Reason Start Time Stop Time Status Last Admin Dose Admin Acetaminophen (Tylenol) 650 mg Q4H PRN ORAL Mild Pain/Temp > 100.5 12/02/16 16:00 01/01/17 15:59 Al Hydroxide/Mg Hydroxide (Mylanta) 30 ml Q4H PRN ORAL Per rx protocol 12/02/16 17:00 01/01/17 16:59 Amlodipine Besylate (Norvasc) 2.5 mg DAILY ORAL 12/03/16 09:00 01/02/17 08:59 12/03/16 08:28 Artificial Tears (Akwa-Tears) 2 drop Q12HR BOTH EYES 12/02/16 21:00 01/01/17 20:59 12/03/16 21:20 Dextrose (Dextrose 50%) STAT PRN IV Hypoglycemia 12/02/16 16:00 01/01/17 15:59 Dextrose/ Electrolytes 1,000 ml @ 45 mls/hr [id number] IV 12/02/16 15:30 01/01/17 15:29 12/03/16 12:18 Ertapenem/Sodium Chloride (INVanz/Sodium Chloride) 110 ml @ 220 mls/hr Q24H IVPB 12/03/16 13:00 12/08/16 12:59 12/03/16 12:15 Heparin Sodium (Porcine) (Heparin 5000 units/ml) 5,000 units EVERY 12 HOURS SUBQ 12/02/16 21:00 01/01/17 20:59 12/03/16 21:21 Insulin Aspart (NovoLOG) Q6HR SUBQ 12/02/16 18:00 01/01/17 17:59 12/04/16 05:24 Morphine Sulfate (Morphine Sulfate) 3 mg Q4H PRN IVP PAIN 4-10 12/02/16 15:00 12/09/16 14:59 Pantoprazole (Protonix) 40 mg DAILY ORAL 12/03/16 09:00 01/02/17 08:59 12/03/16 08:28 Vancomycin HCl 1 ea 1 ea DAILY PRN MISC Per rx protocol 12/02/16 16:00 01/01/17 15:59 Vancomycin HCl/ Sodium Chloride (Vancomycin/ Sodium Chloride) 325 ml @ 162.5 mls/ hr Q12H IVPB 12/04/16 03:00 12/08/16 13:59 12/04/16 03:50 REINALDO HUTCHINSON Dec 04, 2016 09:46
--- NOTE | 2016-12-04 10:27 | Diagnostic Imaging Report ---
Clinical history: Cough. Technique: Portable AP chest radiograph was obtained. Comparison: 12/03/16. Findings: There is near complete opacification of the right hemithorax, new since the prior examination, suggesting large right pleural effusion with adjacent atelectasis or collapse. There is otherwise no significant interval change in the interval, allowing for differences in technique and positioning. Impression: 1. Near complete opacification of the right hemithorax suggesting large right pleural effusion and/or right-sided atelectasis/collapse. Correlate clinically. 2. Tracheostomy tube and right thoracostomy tube remain in place. 3. Cardiomegaly with mild interstitial edema.
[2016-12-04] MEDS: D5 1/2NS w/KCl 20mEq 1,000 ML IV SCH (10:32)
--- NOTE | 2016-12-04 10:45 | Pulmonology Progress Note ---
Assessment/Plan Assessment/Plan IMPRESSIONS: 1. Pneumonia. 2. Respiratory failure 3. Hypertension. 4. Sinus tachycardia without fevers. 5. Possible sepsis. 6. Lactic acidemia. 7. History of seizures. 8. History of chronic encephalopathy. 9. hypernatremia 10. pleural effusion s/p decortication 11. trach PLAN care noted worsening chest xr return to ventilator for now consider bronchoscopy update thoracic monitor lytes labs reviewed IV antibiotics noted; ID reviewed respiratory care remains guarded all reviewed and discussed impression, plan, and exam edited and reviewed in detail care discussed with RN Subjective ROS Limited/Unobtainable: Yes Allergies: Coded Allergies: No Known Allergies (Unverified , 11/23/16) Subjective was off ventilator poor LOC in [facility] chest xr worse Objective Last 24 Hour Vital Signs Date Time Temp Pulse Resp B/P Pulse Ox O2 Delivery O2 Flow Rate FiO2 12/04/16 09:38 89 141/78 12/04/16 08:00 98.1 89 22 141/78 98 Mechanical Ventilator 12/04/16 08:00 89 12/04/16 07:56 40 12/04/16 04:00 98.8 100 16 143/78 95 Room Air 12/04/16 04:00 40 12/04/16 03:34 92 12/04/16 01:15 98 T-piece 10.0 35 12/04/16 01:15 T-piece 10.0 35 12/04/16 00:00 98.2 98 16 149/81 97 Mechanical Ventilator 12/04/16 00:00 40 12/03/16 23:38 99 12/03/16 20:00 97.9 93 24 141/81 98 T-piece 12/03/16 20:00 40 12/03/16 20:00 99 12/03/16 18:58 T-piece 10.0 35 12/03/16 18:57 99 T-piece 10.0 35 12/03/16 16:47 99.5 104 20 133/78 99 T-piece 12/03/16 16:00 97 12/03/16 16:00 40 12/03/16 12:00 106 12/03/16 12:00 97.7 106 26 130/71 95 Trach Collar 40 12/03/16 12:00 40 12/03/16 10:45 101 Intake and Output 12/03/16 12/04/16 19:00 07:00 Intake Total 1865.0 ml 1920.0 ml Output Total 2810 ml 2008 ml Balance -945.0 ml -88.0 ml Intake Free Water 200 ml 450 ml IV Total 975.0 ml 865.0 ml Tube Feeding 660 ml 605 ml Other 30 ml Output Urine Total 2800 ml 2000 ml Chest Tube Drainage Total 10 ml 8 ml # Bowel Movements 1 Objective GENERAL: The patient is a well-developed male, chronically ill, chronically debilitated. reduced LOC HEENT: Normocephalic and atraumatic. Pupils are sluggish. NECK: Supple. LUNGS: expiratory rhonchi. Moderate air entry. reduced right more pronounced; trach in place CARDIAC: S1 and S2. RRR The patient without murmurs, rubs, or gallops. ABDOMEN: Otherwise soft, nontender, and nondistended. GT EXTREMITIES: No cyanosis, clubbing, or edema. NEUROLOGIC: Grossly nonfocal. reviewed and edited lines noted Microbiology Date/Time Source Procedure Growth Status 12/01/16 21:00 Lung Right Gram Stain - Final Resulted 12/01/16 21:00 Lung Right Aerobic Culture - Preliminary NO GROWTH AFTER 48 HOURS Resulted 12/01/16 21:00 Lung Right Anaerobic Culture - Preliminary NO GROWTH AFTER 24 HOURS Resulted 12/01/16 16:16 Lung Right Gram Stain - Final Resulted 12/01/16 16:16 Lung Right Aerobic Culture - Preliminary NO GROWTH AFTER 48 HOURS Resulted 12/01/16 16:16 Lung Right Anaerobic Culture - Preliminary NO GROWTH AFTER 24 HOURS Resulted Laboratory Tests 12/03/16 12:10: Arterial Blood pH 7.500H, Arterial Blood Partial Pressure CO2 34.7L, Arterial Blood Partial Pressure O2 74.7L, Arterial Blood HCO3 26.9H, Arterial Blood Oxygen Saturation 94.9, Arterial Blood Base Excess 3.9, Dread Test Positive 12/04/16 01:05: Vancomycin Level Trough 6.1 Current Medications Medications (Trade) Dose Ordered Sig/Pierre Route PRN Reason Start Time Stop Time Status Last Admin Dose Admin Acetaminophen (Tylenol) 650 mg Q4H PRN ORAL Mild Pain/Temp > 100.5 12/02/16 16:00 01/01/17 15:59 Al Hydroxide/Mg Hydroxide (Mylanta) 30 ml Q4H PRN ORAL Per rx protocol 12/02/16 17:00 01/01/17 16:59 Amlodipine Besylate (Norvasc) 2.5 mg DAILY ORAL 12/03/16 09:00 01/02/17 08:59 12/04/16 09:38 Artificial Tears (Akwa-Tears) 2 drop Q12HR BOTH EYES 12/02/16 21:00 01/01/17 20:59 12/04/16 09:00 Dextrose (Dextrose 50%) STAT PRN IV Hypoglycemia 12/02/16 16:00 01/01/17 15:59 Dextrose/ Electrolytes 1,000 ml @ 45 mls/hr [id number] IV 12/02/16 15:30 01/01/17 15:29 12/04/16 10:32 Ertapenem/Sodium Chloride (INVanz/Sodium Chloride) 110 ml @ 220 mls/hr Q24H IVPB 12/03/16 13:00 12/08/16 12:59 12/03/16 12:15 Heparin Sodium (Porcine) (Heparin 5000 units/ml) 5,000 units EVERY 12 HOURS SUBQ 12/02/16 21:00 01/01/17 20:59 12/04/16 09:40 Insulin Aspart (NovoLOG) Q6HR SUBQ 12/02/16 18:00 01/01/17 17:59 12/04/16 05:24 Morphine Sulfate (Morphine Sulfate) 3 mg Q4H PRN IVP PAIN 4-10 12/02/16 15:00 12/09/16 14:59 Pantoprazole (Protonix) 40 mg DAILY ORAL 12/03/16 09:00 01/02/17 08:59 12/04/16 09:37 Vancomycin HCl 1 ea 1 ea DAILY PRN MISC Per rx protocol 12/02/16 16:00 01/01/17 15:59 Vancomycin HCl/ Sodium Chloride (Vancomycin/ Sodium Chloride) 325 ml @ 162.5 mls/ hr Q12H IVPB 12/04/16 03:00 12/08/16 13:59 12/04/16 03:50 DEREJE CASTANO Dec 04, 2016 10:45
--- NOTE | 2016-12-04 11:02 | General Progress Note ---
Assessment/Plan Problem List: (1) Respiratory failure with hypoxia ICD Codes: J96.91 - Respiratory failure, unspecified with hypoxia SNOMED: [id number] Qualifiers: Qualified Codes: J96.21 - Acute and chronic respiratory failure with hypoxia (2) Pneumonia ICD Codes: J18.9 - Pneumonia, unspecified organism SNOMED: 990139582 Qualifiers: Qualified Codes: J18.9 - Pneumonia, unspecified organism (3) UTI (urinary tract infection) ICD Codes: N39.0 - Urinary tract infection, site not specified SNOMED: 18294513 Qualifiers: Qualified Codes: N30.00 - Acute cystitis without hematuria (4) Severe sepsis ICD Codes: A41.9 - Sepsis, unspecified organism; R65.20 - Severe sepsis without septic shock SNOMED: 31859123 Status: stable Assessment/Plan vent resp rx gt feeds abx dvt prophylaxis Subjective ROS Limited/Unobtainable: Yes Constitutional: Reports: malaise, weakness HEENT: Reports: no symptoms Cardiovascular: Reports: no symptoms Respiratory: Reports: cough, sputum Gastrointestinal/Abdominal: Reports: difficulty swallowing Genitourinary: Reports: no symptoms Neurologic/Psychiatric: Reports: pre-existing deficit, seizure Endocrine: Reports: no symptoms Hematologic/Lymphatic: Reports: anemia Allergies: Coded Allergies: No Known Allergies (Unverified , 11/23/16) All Systems: reviewed and negative except above Subjective s/p uncomplicated right sided vats. trach also replaced. no overnite events. still with chest tube. no leak noted. less output. tolerating feeds Objective Last 24 Hour Vital Signs Date Time Temp Pulse Resp B/P Pulse Ox O2 Delivery O2 Flow Rate FiO2 12/04/16 09:38 89 141/78 12/04/16 08:00 98.1 89 22 141/78 98 Mechanical Ventilator 12/04/16 08:00 89 12/04/16 07:56 40 12/04/16 04:00 98.8 100 16 143/78 95 Room Air 12/04/16 04:00 40 12/04/16 03:34 92 12/04/16 01:15 98 T-piece 10.0 35 12/04/16 01:15 T-piece 10.0 35 12/04/16 00:00 98.2 98 16 149/81 97 Mechanical Ventilator 12/04/16 00:00 40 12/03/16 23:38 99 12/03/16 20:00 97.9 93 24 141/81 98 T-piece 12/03/16 20:00 40 12/03/16 20:00 99 12/03/16 18:58 T-piece 10.0 35 12/03/16 18:57 99 T-piece 10.0 35 12/03/16 16:47 99.5 104 20 133/78 99 T-piece 12/03/16 16:00 97 12/03/16 16:00 40 12/03/16 12:00 106 12/03/16 12:00 97.7 106 26 130/71 95 Trach Collar 40 12/03/16 12:00 40 Intake and Output 12/03/16 12/04/16 19:00 07:00 Intake Total 1865.0 ml 1920.0 ml Output Total 2810 ml 2008 ml Balance -945.0 ml -88.0 ml Intake Free Water 200 ml 450 ml IV Total 975.0 ml 865.0 ml Tube Feeding 660 ml 605 ml Other 30 ml Output Urine Total 2800 ml 2000 ml Chest Tube Drainage Total 10 ml 8 ml # Bowel Movements 1 Laboratory Tests 12/03/16 12:10: Arterial Blood pH 7.500H, Arterial Blood Partial Pressure CO2 34.7L, Arterial Blood Partial Pressure O2 74.7L, Arterial Blood HCO3 26.9H, Arterial Blood Oxygen Saturation 94.9, Arterial Blood Base Excess 3.9, Dread Test Positive 12/04/16 01:05: Vancomycin Level Trough 6.1 Height (Feet): 5 Height (Inches): 5.00 Weight (Pounds): 175 Objective General Appearance: WD/WN, confused Neck: supple Cardiovascular: regular rhythm Respiratory/Chest: right sided ct. no wheezes or rales Abdomen: normal bowel sounds, non tender, soft, no organomegaly Edema: no edema noted Arm (L), no edema noted Arm (R), no edema noted Leg (L), no edema noted Leg (R), no edema noted Pedal (L), no edema noted Pedal (R), no edema noted Generalized Skin: warm/dry DESMOND GARCIA Dec 04, 2016 11:02
[2016-12-04 12:00] VITALS: BP 132/77
[2016-12-04 12:06] LABS: EOSINOPHILS % (AUTO) 2.7 % (0.0-3.0); LYMPHOCYTES % (AUTO) 14.3 % (20.0-45.0); MEAN CORPUSCULAR HEMOGLOBIN 33.4 PG (27.0-31.0); MEAN CORPUSCULAR VOLUME 101 FL (80-99); MONOCYTES % (AUTO) 5.6 % (1.0-10.0); NEUTROPHILS % (AUTO) 76.4 % (45.0-75.0); PLATELET COUNT 341 K/UL (150-450); RED BLOOD COUNT 3.24 M/UL (4.70-6.10); RED CELL DISTRIBUTION WIDTH 12.3 % (11.6-14.8); WHITE BLOOD COUNT 10.5 K/UL (4.8-10.8)
[2016-12-04 12:22] LABS: ALANINE AMINOTRANSFERASE 29 U/L (3-41); ALBUMIN/GLOBULIN RATIO 0.6 (1.0-2.7); ANION GAP 11 (5-15); ASPARTATE AMINO TRANSFERASE 38 U/L (5-40); CALCIUM 7.6 mg/dL (8.6-10.2); CARBON DIOXIDE 27 mEQ/L (20-30); CHLORIDE 100 mEQ/L (98-107); CREATININE 0.4 mg/dL (0.7-1.2); GLOMERULAR FILTRATION RATE > 60 mL/min (>60); HEMOLYSIS 1; POTASSIUM 3.8 mEQ/L (3.4-4.9); SODIUM 138 mEQ/L (135-145); TOTAL PROTEIN 5.7 g/dL (6.6-8.7)
[2016-12-04] MEDS: Ertapenem 1 GM in NS 110 ML IVPB SCH (13:00)
--- NOTE | 2016-12-04 13:35 | General Progress Note ---
Progress Note Progress Note AfebVSS R CT with min drainge CXR opacified left chest WBC [address] scan Cont CT on suction RUTH ELLISON M.D. Dec 04, 2016 13:35
[2016-12-04 15:57] VITALS: BP 129/80
[2016-12-04] MEDS ORDERED: NS 275ml ONE (17:26)
[2016-12-04] MEDS ORDERED: Tubing IV Secondary IV ONE (17:26)
[2016-12-04 20:00] VITALS: BP 126/78
[2016-12-05] VITALS: BP 137/82
[2016-12-05] MEDS: NovoLOG Insulin Flexpen SUBQ SCH ×4 (00:16→17:29)
[2016-12-05] MEDS: Vancomycin 1.5 GM in NS 325 ML IVPB SCH ×2 (03:07→14:22)
[2016-12-05 04:00] VITALS: BP 132/76
[2016-12-05 05:12] LABS: BASOPHILS % (AUTO) 0.7 % (0.0-2.0); EOSINOPHILS % (AUTO) 4.3 % (0.0-3.0); LYMPHOCYTES % (AUTO) 19.4 % (20.0-45.0); MEAN CORPUSCULAR HEMOGLOBIN 34.3 PG (27.0-31.0); MEAN CORPUSCULAR HGB CONC 33.8 G/DL (32.0-36.0); MEAN CORPUSCULAR VOLUME 102 FL (80-99); MEAN PLATELET VOLUME 7.2 FL (6.5-10.1); NEUTROPHILS % (AUTO) 68.5 % (45.0-75.0); PLATELET COUNT 318 K/UL (150-450); RED BLOOD COUNT 2.74 M/UL (4.70-6.10); RED CELL DISTRIBUTION WIDTH 11.9 % (11.6-14.8); WHITE BLOOD COUNT 8.4 K/UL (4.8-10.8)
[2016-12-05 05:31] LABS: ANION GAP 11 (5-15); CALCIUM 7.8 mg/dL (8.6-10.2); CARBON DIOXIDE 27 mEQ/L (20-30); CHLORIDE 102 mEQ/L (98-107); CREATININE 0.4 mg/dL (0.7-1.2); GLOMERULAR FILTRATION RATE > 60 mL/min (>60); HEMOLYSIS 0; POTASSIUM 3.6 mEQ/L (3.4-4.9); SODIUM 140 mEQ/L (135-145)
[2016-12-05 08:00] VITALS: BP 130/60
--- NOTE | 2016-12-05 08:05 | General Progress Note ---
Assessment/Plan Problem List: (1) Respiratory failure with hypoxia ICD Codes: J96.91 - Respiratory failure, unspecified with hypoxia SNOMED: [id number] Qualifiers: Qualified Codes: J96.21 - Acute and chronic respiratory failure with hypoxia (2) Pneumonia ICD Codes: J18.9 - Pneumonia, unspecified organism SNOMED: 917855457 Qualifiers: Qualified Codes: J18.9 - Pneumonia, unspecified organism (3) UTI (urinary tract infection) ICD Codes: N39.0 - Urinary tract infection, site not specified SNOMED: 88551394 Qualifiers: Qualified Codes: N30.00 - Acute cystitis without hematuria (4) Severe sepsis ICD Codes: A41.9 - Sepsis, unspecified organism; R65.20 - Severe sepsis without septic shock SNOMED: 06400890 Status: stable, progressing Assessment/Plan vent resp rx gt feeds abx dvt prophylaxis Subjective ROS Limited/Unobtainable: Yes Constitutional: Reports: malaise, weakness HEENT: Reports: no symptoms Cardiovascular: Reports: no symptoms Respiratory: Reports: no symptoms Gastrointestinal/Abdominal: Reports: difficulty swallowing Genitourinary: Reports: no symptoms Neurologic/Psychiatric: Reports: pre-existing deficit, seizure Endocrine: Reports: no symptoms Hematologic/Lymphatic: Reports: no symptoms Allergies: Coded Allergies: No Known Allergies (Unverified , 11/23/16) All Systems: reviewed and negative except above Subjective s/p uncomplicated right sided vats. trach also replaced. no overnite events. still with chest tube. no leak noted. less output. tolerating feeds. thoracic noted. ct chest per thoracic. Objective Last 24 Hour Vital Signs Date Time Temp Pulse Resp B/P Pulse Ox O2 Delivery O2 Flow Rate FiO2 12/05/16 06:47 94 12 40 12/05/16 05:16 89 12 40 12/05/16 04:00 89 12/05/16 04:00 40 12/05/16 04:00 98.7 95 18 132/76 98 12/05/16 03:12 89 12 40 12/05/16 01:07 89 12 40 12/05/16 00:00 99.0 85 14 137/82 100 12/05/16 00:00 40 12/05/16 00:00 81 12/04/16 22:41 82 12 40 12/04/16 21:29 85 12 40 12/04/16 20:00 83 12/04/16 20:00 40 12/04/16 20:00 97.9 93 14 126/78 100 12/04/16 19:10 88 12 40 12/04/16 16:50 89 13 40 12/04/16 16:00 87 12/04/16 16:00 40 12/04/16 15:57 97.7 92 12 129/80 100 12/04/16 15:00 87 12 40 12/04/16 13:00 101 14 40 12/04/16 13:00 Mechanical Ventilator 40 12/04/16 13:00 100 Mechanical Ventilator 40 12/04/16 12:00 79 12/04/16 12:00 98.5 79 20 132/77 98 Mechanical Ventilator 12/04/16 11:35 40 12/04/16 11:20 92 14 40 12/04/16 09:38 89 141/78 12/04/16 09:00 T-piece 10.0 40 12/04/16 09:00 96 T-piece 10.0 40 Intake and Output 12/04/16 12/05/16 19:00 07:00 Intake Total 1695.0 ml 1397.5 ml Output Total 1750 ml 1150 ml Balance -55.0 ml 247.5 ml Intake Free Water 50 ml 300 ml IV Total 930.0 ml 657.5 ml Tube Feeding 715 ml 440 ml Output Urine Total 1600 ml 1100 ml Chest Tube Drainage Total 150 ml 50 ml # Bowel Movements 2 Laboratory Tests 12/04/16 11:30: White Blood Count 10.5, Red Blood Count 3.24L, Hemoglobin 10.8L, Hematocrit 32.8L, Mean Corpuscular Volume 101H, Mean Corpuscular Hemoglobin 33.4H, Mean Corpuscular Hemoglobin Concent 33.0, Red Cell Distribution Width 12.3, Platelet Count 341, Mean Platelet Volume 7.0, Neutrophils (%) (Auto) 76.4H, Lymphocytes ( %) (Auto) 14.3L, Monocytes (%) (Auto) 5.6, Eosinophils (%) (Auto) 2.7, Basophils (%) (Auto) 1.0, Sodium Level 138, Potassium Level 3.8, Chloride Level 100, Carbon Dioxide Level 27, Anion Gap 11, Blood Urea Nitrogen 8, Creatinine 0.4L, Estimat Glomerular Filtration Rate > 60, Glucose Level 186H, Calcium Level 7.6L, Total Bilirubin 0.4, Aspartate Amino Transf (AST/SGOT) 38, Alanine Aminotransferase (ALT/SGPT) 29, Alkaline Phosphatase 98, Total Protein 5.7L, Albumin 2.2L, Globulin 3.5, Albumin/Globulin Ratio 0.6L 12/05/16 03:00: White Blood Count 8.4, Red Blood Count 2.74L, Hemoglobin 9.4L, Hematocrit 27.8L , Mean Corpuscular Volume 102H, Mean Corpuscular Hemoglobin 34.3H, Mean Corpuscular Hemoglobin Concent 33.8, Red Cell Distribution Width 11.9, Platelet Count 318, Mean Platelet Volume 7.2, Neutrophils (%) (Auto) 68.5, Lymphocytes (% ) (Auto) 19.4L, Monocytes (%) (Auto) 7.0, Eosinophils (%) (Auto) 4.3H, Basophils (%) (Auto) 0.7, Sodium Level 140, Potassium Level 3.6, Chloride Level 102, Carbon Dioxide Level 27, Anion Gap 11, Blood Urea Nitrogen 9, Creatinine 0.4L, Estimat Glomerular Filtration Rate > 60, Glucose Level 155H, Calcium Level 7.8L Height (Feet): 5 Height (Inches): 5.00 Weight (Pounds): 175 Objective General Appearance: WD/WN, confused Neck: supple Cardiovascular: regular rhythm Respiratory/Chest: right sided ct. no wheezes or rales Abdomen: normal bowel sounds, non tender, soft, no organomegaly Edema: no edema noted Arm (L), no edema noted Arm (R), no edema noted Leg (L), no edema noted Leg (R), no edema noted Pedal (L), no edema noted Pedal (R), no edema noted Generalized Skin: warm/dry DESMOND GARCIA Dec 05, 2016 08:05
--- NOTE | 2016-12-05 08:14 | Pulmonology Progress Note ---
Assessment/Plan Assessment/Plan IMPRESSIONS: 1. Pneumonia. 2. Respiratory failure 3. Hypertension. 4. Sinus tachycardia without fevers. 5. Possible sepsis. 6. Lactic acidemia. 7. History of seizures. 8. History of chronic encephalopathy. 9. hypernatremia 10. pleural effusion s/p decortication 11. trach PLAN care noted await CT ventilator for now consider bronchoscopy thoracic aware monitor lytes labs reviewed IV antibiotics noted; ID reviewed respiratory care remains guarded and not ready for dc all reviewed and discussed impression, plan, and exam edited and reviewed in detail care discussed with RN Subjective Allergies: Coded Allergies: No Known Allergies (Unverified , 11/23/16) Subjective on ventilator poor LOC in [place] chest xr worse and awaiting CT Objective Last 24 Hour Vital Signs Date Time Temp Pulse Resp B/P Pulse Ox O2 Delivery O2 Flow Rate FiO2 12/05/16 06:47 94 12 40 12/05/16 05:16 89 12 40 12/05/16 04:00 89 12/05/16 04:00 40 12/05/16 04:00 98.7 95 18 132/76 98 12/05/16 03:12 89 12 40 12/05/16 01:07 89 12 40 12/05/16 00:00 99.0 85 14 137/82 100 12/05/16 00:00 40 12/05/16 00:00 81 12/04/16 22:41 82 12 40 12/04/16 21:29 85 12 40 12/04/16 20:00 83 12/04/16 20:00 40 12/04/16 20:00 97.9 93 14 126/78 100 12/04/16 19:10 88 12 40 12/04/16 16:50 89 13 40 12/04/16 16:00 87 12/04/16 16:00 40 12/04/16 15:57 97.7 92 12 129/80 100 12/04/16 15:00 87 12 40 12/04/16 13:00 101 14 40 12/04/16 13:00 Mechanical Ventilator 40 12/04/16 13:00 100 Mechanical Ventilator 40 12/04/16 12:00 79 12/04/16 12:00 98.5 79 20 132/77 98 Mechanical Ventilator 12/04/16 11:35 40 12/04/16 11:20 92 14 40 12/04/16 09:38 89 141/78 12/04/16 09:00 T-piece 10.0 40 12/04/16 09:00 96 T-piece 10.0 40 Intake and Output 12/04/16 12/05/16 19:00 07:00 Intake Total 1695.0 ml 1397.5 ml Output Total 1750 ml 1150 ml Balance -55.0 ml 247.5 ml Intake Free Water 50 ml 300 ml IV Total 930.0 ml 657.5 ml Tube Feeding 715 ml 440 ml Output Urine Total 1600 ml 1100 ml Chest Tube Drainage Total 150 ml 50 ml # Bowel Movements 2 Objective GENERAL: The patient is a well-developed male, chronically ill, chronically debilitated. reduced LOC HEENT: Normocephalic and atraumatic. Pupils are sluggish. NECK: Supple. LUNGS: expiratory rhonchi. Moderate air entry. improved on right; trach in place CARDIAC: S1 and S2. RRR The patient without murmurs, rubs, or gallops. ABDOMEN: Otherwise soft, nontender, and nondistended. GT EXTREMITIES: No cyanosis, clubbing, or edema. NEUROLOGIC: Grossly nonfocal. withdrawn reviewed and edited lines noted Laboratory Tests 12/04/16 11:30: White Blood Count 10.5, Red Blood Count 3.24L, Hemoglobin 10.8L, Hematocrit 32.8L, Mean Corpuscular Volume 101H, Mean Corpuscular Hemoglobin 33.4H, Mean Corpuscular Hemoglobin Concent 33.0, Red Cell Distribution Width 12.3, Platelet Count 341, Mean Platelet Volume 7.0, Neutrophils (%) (Auto) 76.4H, Lymphocytes ( %) (Auto) 14.3L, Monocytes (%) (Auto) 5.6, Eosinophils (%) (Auto) 2.7, Basophils (%) (Auto) 1.0, Sodium Level 138, Potassium Level 3.8, Chloride Level 100, Carbon Dioxide Level 27, Anion Gap 11, Blood Urea Nitrogen 8, Creatinine 0.4L, Estimat Glomerular Filtration Rate > 60, Glucose Level 186H, Calcium Level 7.6L, Total Bilirubin 0.4, Aspartate Amino Transf (AST/SGOT) 38, Alanine Aminotransferase (ALT/SGPT) 29, Alkaline Phosphatase 98, Total Protein 5.7L, Albumin 2.2L, Globulin 3.5, Albumin/Globulin Ratio 0.6L 12/05/16 03:00: White Blood Count 8.4, Red Blood Count 2.74L, Hemoglobin 9.4L, Hematocrit 27.8L , Mean Corpuscular Volume 102H, Mean Corpuscular Hemoglobin 34.3H, Mean Corpuscular Hemoglobin Concent 33.8, Red Cell Distribution Width 11.9, Platelet Count 318, Mean Platelet Volume 7.2, Neutrophils (%) (Auto) 68.5, Lymphocytes (% ) (Auto) 19.4L, Monocytes (%) (Auto) 7.0, Eosinophils (%) (Auto) 4.3H, Basophils (%) (Auto) 0.7, Sodium Level 140, Potassium Level 3.6, Chloride Level 102, Carbon Dioxide Level 27, Anion Gap 11, Blood Urea Nitrogen 9, Creatinine 0.4L, Estimat Glomerular Filtration Rate > 60, Glucose Level 155H, Calcium Level 7.8L Current Medications Medications (Trade) Dose Ordered Sig/Pierre Route PRN Reason Start Time Stop Time Status Last Admin Dose Admin Acetaminophen (Tylenol) 650 mg Q4H PRN ORAL Mild Pain/Temp > 100.5 12/02/16 16:00 01/01/17 15:59 Al Hydroxide/Mg Hydroxide (Mylanta) 30 ml Q4H PRN ORAL Per rx protocol 12/02/16 17:00 01/01/17 16:59 Amlodipine Besylate (Norvasc) 2.5 mg DAILY ORAL 12/03/16 09:00 01/02/17 08:59 12/04/16 09:38 Artificial Tears (Akwa-Tears) 2 drop Q12HR BOTH EYES 12/02/16 21:00 01/01/17 20:59 12/04/16 21:07 Dextrose (Dextrose 50%) STAT PRN IV Hypoglycemia 12/02/16 16:00 01/01/17 15:59 Dextrose/ Electrolytes 1,000 ml @ 45 mls/hr [id number] IV 12/02/16 15:30 01/01/17 15:29 12/04/16 10:32 Ertapenem/Sodium Chloride (INVanz/Sodium Chloride) 110 ml @ 220 mls/hr Q24H IVPB 12/03/16 13:00 12/08/16 12:59 12/04/16 13:00 Heparin Sodium (Porcine) (Heparin 5000 units/ml) 5,000 units EVERY 12 HOURS SUBQ 12/02/16 21:00 01/01/17 20:59 12/04/16 21:28 Insulin Aspart (NovoLOG) Q6HR SUBQ 12/02/16 18:00 01/01/17 17:59 12/05/16 06:00 Morphine Sulfate (Morphine Sulfate) 3 mg Q4H PRN IVP PAIN 4-10 12/02/16 15:00 12/09/16 14:59 Pantoprazole (Protonix) 40 mg DAILY ORAL 12/03/16 09:00 01/02/17 08:59 12/04/16 09:37 Vancomycin HCl 1 ea 1 ea DAILY PRN MISC Per rx protocol 12/02/16 16:00 01/01/17 15:59 Vancomycin HCl/ Sodium Chloride (Vancomycin/ Sodium Chloride) 325 ml @ 162.5 mls/ hr Q12H IVPB 12/04/16 03:00 12/08/16 13:59 12/05/16 03:07 DEREJE CASTANO Dec 05, 2016 08:14
[2016-12-05] MEDS: Artificial Tears 1.4% Op Soln BOTH EYES SCH ×2 (08:43→20:19)
[2016-12-05] MEDS: Heparin 5000 units/ml inj SUBQ SCH ×2 (08:49→20:19)
--- NOTE | 2016-12-05 09:58 | Diagnostic Imaging Report ---
Indication: Chest pain Technique: Continuous helical transaxial imaging of the chest was obtained from the thoracic inlet to the upper abdomen. No intravenous contrast was administered. Coronal 2-D reformats were also obtained. Total Dose length Product (DLP): [address] Dose Index Volume (CTDIvol): 29 mGy Comparison: 11/29/16 CT chest Findings: Chest tube is in place in the interval. Position of the tube is satisfactory. Near resolution of a right pleural effusion noted. There is a small amount of air in the pleural space as well. Considerable infiltrate or atelectasis are present within the right lung primarily in the lower lobe. Some volume loss is present with slight shift of the heart and mediastinum toward the sided volume loss on the right. Tracheostomy and right subclavian central venous catheters are in good position. There is a trace left pleural fluid present. There is considerable motion artifact present. Gallstone noted. Gastrostomy noted. Considerable artifact obscuring the upper abdomen. Impression: Interval placement of the right chest tube. Small residual hydropneumothorax. Moderate right basilar atelectasis. Superimposed pneumonia not excluded. Tubes and lines satisfactory Trace left pleural effusion Gallstone Gastrostomy Dr. Padilla has communicated the preliminary results to the Emergency Department. There are no significant discrepancies. The CT scanner at [facility] is accredited by the [employer] and the scans are performed using protocols designed to limit radiation exposure to as low as reasonably achievable to attain images of sufficient resolution adequate for diagnostic evaluation.
[2016-12-05] MEDS: D5 1/2NS w/KCl 20mEq 1,000 ML IV SCH (10:33)
--- NOTE | 2016-12-05 10:50 | Diagnostic Imaging Report ---
Indication: Chest pain Technique: One view of the chest Comparison: 12/01/2016 Findings: Previously demonstrated subcutaneous emphysema on the right has largely resolved. Right chest tube, right completing centimeters catheter, tracheostomy remain. Pleural fluid and parenchymal consolidation and atelectasis on the right is stable. 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
--- NOTE | 2016-12-05 11:08 | Infectious Diseases Prog Note ---
"Assessment/Plan Assessment/Plan antibiotics : vancomycin iv, ertapenem A 1. pneumonia 2. loculated pleural effusion s/p thoracentesis s/p VATS | decortication 3. DM 4. respiratory failure 5. right arm cellulitis improving P 1. continue ertapenem, iv vancomycin 2. will follow up cultures Subjective ROS Limited/Unobtainable: Yes Allergies: Coded Allergies: No Known Allergies (Unverified , 11/23/16) Objective Vital Signs Last 24 Hour Vital Signs Date Time Temp Pulse Resp B/P Pulse Ox O2 Delivery O2 Flow Rate FiO2 12/05/16 10:37 97 15 40 12/05/16 09:16 94 14 40 12/05/16 08:42 97 130/60 12/05/16 08:00 98.1 97 14 130/60 98 12/05/16 08:00 40 12/05/16 06:47 94 12 40 12/05/16 05:16 89 12 40 12/05/16 04:00 89 12/05/16 04:00 40 12/05/16 04:00 98.7 95 18 132/76 98 12/05/16 03:12 89 12 40 12/05/16 01:07 89 12 40 12/05/16 00:00 99.0 85 14 137/82 100 12/05/16 00:00 40 12/05/16 00:00 81 12/04/16 22:41 82 12 40 12/04/16 21:29 85 12 40 12/04/16 20:00 83 12/04/16 20:00 40 12/04/16 20:00 97.9 93 14 126/78 100 12/04/16 19:10 88 12 40 12/04/16 16:50 89 13 40 12/04/16 16:00 87 12/04/16 16:00 40 12/04/16 15:57 97.7 92 12 129/80 100 12/04/16 15:00 87 12 40 12/04/16 13:00 101 14 40 12/04/16 13:00 Mechanical Ventilator 40 12/04/16 13:00 100 Mechanical Ventilator 40 12/04/16 12:00 79 12/04/16 12:00 98.5 79 20 132/77 98 Mechanical Ventilator 12/04/16 11:35 40 12/04/16 11:20 92 14 40 Height (Feet): 5 Height (Inches): 5.00 Weight (Pounds): 175 HEENT: status post trach Respiratory/Chest: rhonchi - bilaterally, other - right CT Cardiovascular: normal rate, regular rhythm, no gallop/murmur Abdomen: soft, non tender, other - GT Extremities: no edema, other - right subclavian Laboratory Tests Test 12/04/16 11:30 12/05/16 03:00 White Blood Count 10.5 K/UL (4.8-10.8) 8.4 K/UL (4.8-10.8) Red Blood Count 3.24 M/UL (4.70-6.10) L 2.74 M/UL (4.70-6.10) L Hemoglobin 10.8 G/DL (14.2-18.0) L 9.4 G/DL (14.2-18.0) L Hematocrit 32.8 % (42.0-52.0) L 27.8 % (42.0-52.0) L Mean Corpuscular Volume 101 FL (80-99) H 102 FL (80-99) H Mean Corpuscular Hemoglobin 33.4 PG (27.0-31.0) H 34.3 PG (27.0-31.0) H Mean Corpuscular Hemoglobin Concent 33.0 G/DL (32.0-36.0) 33.8 G/DL (32.0-36.0) Red Cell Distribution Width 12.3 % (11.6-14.8) 11.9 % (11.6-14.8) Platelet Count 341 K/UL (150-450) 318 K/UL (150-450) Mean Platelet Volume 7.0 FL (6.5-10.1) 7.2 FL (6.5-10.1) Neutrophils (%) (Auto) 76.4 % (45.0-75.0) H 68.5 % (45.0-75.0) Lymphocytes (%) (Auto) 14.3 % (20.0-45.0) L 19.4 % (20.0-45.0) L Monocytes (%) (Auto) 5.6 % (1.0-10.0) 7.0 % (1.0-10.0) Eosinophils (%) (Auto) 2.7 % (0.0-3.0) 4.3 % (0.0-3.0) H Basophils (%) (Auto) 1.0 % (0.0-2.0) 0.7 % (0.0-2.0) Sodium Level 138 mEQ/L (135-145) 140 mEQ/L (135-145) Potassium Level 3.8 mEQ/L (3.4-4.9) 3.6 mEQ/L (3.4-4.9) Chloride Level 100 mEQ/L (98-107) 102 mEQ/L (98-107) Carbon Dioxide Level 27 mEQ/L (20-30) 27 mEQ/L (20-30) Anion Gap 11 (5-15) 11 (5-15) Blood Urea Nitrogen 8 mg/dL (7-23) 9 mg/dL (7-23) Creatinine 0.4 mg/dL (0.7-1.2) L 0.4 mg/dL (0.7-1.2) L Estimat Glomerular Filtration Rate > 60 mL/min (>60) > 60 mL/min (>60) Glucose Level 186 mg/dL (74-106) H 155 mg/dL (74-106) H Calcium Level 7.6 mg/dL (8.6-10.2) L 7.8 mg/dL (8.6-10.2) L Total Bilirubin 0.4 mg/dL (0.0-1.2) Aspartate Amino Transf (AST/SGOT) 38 U/L (5-40) Alanine Aminotransferase (ALT/SGPT) 29 U/L (3-41) Alkaline Phosphatase 98 U/L (40-129) Total Protein 5.7 g/dL (6.6-8.7) L Albumin 2.2 g/dL (3.5-5.2) L Globulin 3.5 g/dL Albumin/Globulin Ratio 0.6 (1.0-2.7) L HELDER ZAMORA Dec 05, 2016 11:08"
[2016-12-05 12:00] VITALS: BP 139/73
[2016-12-05] MEDS: Ertapenem 1 GM in NS 110 ML IVPB SCH (12:15)
--- NOTE | 2016-12-05 13:28 | Diagnostic Imaging Report ---
Indication: Chest Pain Comparison: 12/04/16 A single view chest radiograph was obtained. Findings: Right hemithorax remains nearly completely opacified. Chest tube is noted in place. Heart size is stable. Subclavian line again noted. 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
--- NOTE | 2016-12-05 13:45 | General Progress Note ---
Progress Note Progress Note AfebVSS Right CT with min drainage no airleak Chest CT reviewed: minimal effusion and no endobronchial obstruction WBC 8.[address] on suction RUTH ELLISON M.D. Dec 05, 2016 13:45
[2016-12-05 16:00] VITALS: BP 104/78
[2016-12-05] MEDS ORDERED: NS 275ml ONE (17:33)
[2016-12-05] MEDS ORDERED: Tubing IV Secondary IV ONE (17:33)
[2016-12-05 20:00] VITALS: BP 126/76
[2016-12-06] VITALS: BP 126/84
[2016-12-06] MEDS: NovoLOG Insulin Flexpen SUBQ SCH ×4 (00:05→17:22)
[2016-12-06] MEDS: Vancomycin 1.5 GM in NS 325 ML IVPB SCH (03:05)
[2016-12-06 03:45] LABS: BASOPHILS % (AUTO) 0.8 % (0.0-2.0); EOSINOPHILS % (AUTO) 5.3 % (0.0-3.0); LYMPHOCYTES % (AUTO) 19.4 % (20.0-45.0); MEAN CORPUSCULAR HEMOGLOBIN 34.4 PG (27.0-31.0); MEAN CORPUSCULAR HGB CONC 34.1 G/DL (32.0-36.0); MEAN CORPUSCULAR VOLUME 101 FL (80-99); MEAN PLATELET VOLUME 7.1 FL (6.5-10.1); MONOCYTES % (AUTO) 7.3 % (1.0-10.0); NEUTROPHILS % (AUTO) 67.2 % (45.0-75.0); PLATELET COUNT 371 K/UL (150-450); RED BLOOD COUNT 2.91 M/UL (4.70-6.10); RED CELL DISTRIBUTION WIDTH 12.1 % (11.6-14.8)
[2016-12-06 04:00] VITALS: BP 141/86
[2016-12-06 04:01] LABS: ANION GAP 11 (5-15); CALCIUM 7.6 mg/dL (8.6-10.2); CARBON DIOXIDE 27 mEQ/L (20-30); CHLORIDE 101 mEQ/L (98-107); CREATININE 0.4 mg/dL (0.7-1.2); GLOMERULAR FILTRATION RATE > 60 mL/min (>60); HEMOLYSIS 5; POTASSIUM 3.5 mEQ/L (3.4-4.9); SODIUM 139 mEQ/L (135-145)
--- NOTE | 2016-12-06 07:44 | General Progress Note ---
Assessment/Plan Problem List: (1) Respiratory failure with hypoxia ICD Codes: J96.91 - Respiratory failure, unspecified with hypoxia SNOMED: 81401476680183324 Qualifiers: Qualified Codes: J96.21 - Acute and chronic respiratory failure with hypoxia (2) Pneumonia ICD Codes: J18.9 - Pneumonia, unspecified organism SNOMED: 738374594 Qualifiers: Qualified Codes: J18.9 - Pneumonia, unspecified organism (3) UTI (urinary tract infection) ICD Codes: N39.0 - Urinary tract infection, site not specified SNOMED: 59213149 Qualifiers: Qualified Codes: N30.00 - Acute cystitis without hematuria (4) Severe sepsis ICD Codes: A41.9 - Sepsis, unspecified organism; R65.20 - Severe sepsis without septic shock SNOMED: 28534824 Status: stable Assessment/Plan vent resp rx gt feeds abx dvt prophylaxis ct management for thoracic Subjective ROS Limited/Unobtainable: Yes Constitutional: Reports: no symptoms HEENT: Reports: no symptoms Cardiovascular: Reports: no symptoms Respiratory: Reports: cough, sputum Gastrointestinal/Abdominal: Reports: difficulty swallowing Genitourinary: Reports: no symptoms Neurologic/Psychiatric: Reports: pre-existing deficit, seizure Endocrine: Reports: no symptoms Hematologic/Lymphatic: Reports: no symptoms Allergies: Coded Allergies: No Known Allergies (Unverified , 11/23/16) All Systems: reviewed and negative except above Subjective s/p uncomplicated right sided vats. trach also replaced. no overnite events. still with chest tube. no leak noted. less output. tolerating feeds. thoracic noted. ct chest noted. Objective Last 24 Hour Vital Signs Date Time Temp Pulse Resp B/P Pulse Ox O2 Delivery O2 Flow Rate FiO2 12/06/16 05:06 101 14 40 12/06/16 04:00 98.4 96 17 141/86 98 Mechanical Ventilator 40 12/06/16 04:00 96 12/06/16 04:00 40 12/06/16 03:13 94 13 40 12/06/16 01:05 88 13 40 12/06/16 00:00 40 12/06/16 00:00 98.2 94 18 126/84 98 Mechanical Ventilator 40 12/06/16 00:00 94 12/05/16 23:05 88 13 40 12/05/16 20:33 90 12 40 12/05/16 20:00 98.1 85 20 126/76 95 Mechanical Ventilator 40 12/05/16 20:00 40 12/05/16 20:00 84 12/05/16 18:49 88 12 40 12/05/16 17:01 88 12 40 12/05/16 16:00 84 12/05/16 16:00 97.9 85 20 104/78 95 Mechanical Ventilator 40 12/05/16 16:00 40 12/05/16 15:10 87 12 40 12/05/16 13:07 93 15 40 12/05/16 12:00 99.0 96 17 139/73 96 Mechanical Ventilator 40 12/05/16 12:00 40 12/05/16 12:00 91 12/05/16 10:37 97 15 40 12/05/16 09:16 94 14 40 12/05/16 08:42 97 130/60 12/05/16 08:00 98.1 97 14 130/60 98 12/05/16 08:00 93 12/05/16 08:00 40 Intake and Output 12/05/16 12/06/16 19:00 07:00 Intake Total 1907.0 ml 1675.0 ml Output Total 750 ml 2060 ml Balance 1157.0 ml -385.0 ml Intake Free Water 450 ml 250 ml IV Total 797.0 ml 820.0 ml Tube Feeding 660 ml 605 ml Output Urine Total 750 ml 2000 ml Chest Tube Drainage Total 0 ml 60 ml Laboratory Tests 12/06/16 02:00: White Blood Count 8.0, Red Blood Count 2.91L, Hemoglobin 10.0L, Hematocrit 29.4L , Mean Corpuscular Volume 101H, Mean Corpuscular Hemoglobin 34.4H, Mean Corpuscular Hemoglobin Concent 34.1, Red Cell Distribution Width 12.1, Platelet Count 371, Mean Platelet Volume 7.1, Neutrophils (%) (Auto) 67.2, Lymphocytes (% ) (Auto) 19.4L, Monocytes (%) (Auto) 7.3, Eosinophils (%) (Auto) 5.3H, Basophils (%) (Auto) 0.8, Sodium Level 139, Potassium Level 3.5, Chloride Level 101, Carbon Dioxide Level 27, Anion Gap 11, Blood Urea Nitrogen 9, Creatinine 0.4L, Estimat Glomerular Filtration Rate > 60, Glucose Level 141H, Calcium Level 7.6L, Vancomycin Level Trough 26.4H Height (Feet): 5 Height (Inches): 5.00 Weight (Pounds): 175 Objective General Appearance: WD/WN, confused Neck: supple Cardiovascular: regular rhythm Respiratory/Chest: right sided ct. no wheezes or rales Abdomen: normal bowel sounds, non tender, soft, no organomegaly Edema: no edema noted Arm (L), no edema noted Arm (R), no edema noted Leg (L), no edema noted Leg (R), no edema noted Pedal (L), no edema noted Pedal (R), no edema noted Generalized Skin: warm/dry DESMOND GARCIA Dec 06, 2016 07:44
[2016-12-06 08:00] VITALS: BP 129/71
[2016-12-06] MEDS: Artificial Tears 1.4% Op Soln BOTH EYES SCH ×2 (08:57→20:30)
[2016-12-06] MEDS: D5 1/2NS w/KCl 20mEq 1,000 ML IV SCH (09:19)
[2016-12-06] MEDS: Heparin 5000 units/ml inj SUBQ SCH ×2 (09:22→20:32)
--- NOTE | 2016-12-06 10:54 | Pulmonology Progress Note ---
Assessment/Plan Assessment/Plan IMPRESSIONS: 1. Pneumonia. 2. Respiratory failure 3. Hypertension. 4. Sinus tachycardia without fevers. 5. Possible sepsis. 6. Lactic acidemia. 7. History of seizures. 8. History of chronic encephalopathy. 9. hypernatremia 10. pleural effusion s/p decortication 11. trach PLAN care noted reviewed CT ventilator for now consider bronchoscopy if chest xr not improved today; ordered stat monitor lytes labs reviewed IV antibiotics noted; ID reviewed respiratory care remains guarded and not ready for dc all reviewed and discussed will need improvement in chest xr prior to dc impression, plan, and exam edited and reviewed in detail care discussed with RN Subjective ROS Limited/Unobtainable: Yes Allergies: Coded Allergies: No Known Allergies (Unverified , 11/23/16) Subjective on ventilator poor LOC in [facility] CT noted; no fluid; atelectasis noted Objective Last 24 Hour Vital Signs Date Time Temp Pulse Resp B/P Pulse Ox O2 Delivery O2 Flow Rate FiO2 12/06/16 09:19 103 141/86 12/06/16 08:49 103 21 40 12/06/16 08:00 98.4 97 13 129/71 100 Mechanical Ventilator 40 12/06/16 08:00 40 12/06/16 08:00 97 12/06/16 07:20 104 19 40 12/06/16 05:06 101 14 40 12/06/16 04:00 98.4 96 17 141/86 98 Mechanical Ventilator 40 12/06/16 04:00 96 12/06/16 04:00 40 12/06/16 03:13 94 13 40 12/06/16 01:05 88 13 40 12/06/16 00:00 40 12/06/16 00:00 98.2 94 18 126/84 98 Mechanical Ventilator 40 12/06/16 00:00 94 12/05/16 23:05 88 13 40 12/05/16 20:33 90 12 40 12/05/16 20:00 98.1 85 20 126/76 95 Mechanical Ventilator 40 12/05/16 20:00 40 12/05/16 20:00 84 12/05/16 18:49 88 12 40 12/05/16 17:01 88 12 40 12/05/16 16:00 84 12/05/16 16:00 97.9 85 20 104/78 95 Mechanical Ventilator 40 12/05/16 16:00 40 12/05/16 15:10 87 12 40 12/05/16 13:07 93 15 40 12/05/16 12:00 99.0 96 17 139/73 96 Mechanical Ventilator 40 12/05/16 12:00 40 12/05/16 12:00 91 Intake and Output 12/05/16 12/06/16 19:00 07:00 Intake Total 1907.0 ml 1720.0 ml Output Total 750 ml 2060 ml Balance 1157.0 ml -340.0 ml Intake Free Water 450 ml 250 ml IV Total 797.0 ml 865.0 ml Tube Feeding 660 ml 605 ml Output Urine Total 750 ml 2000 ml Chest Tube Drainage Total 0 ml 60 ml Objective GENERAL: The patient is a well-developed male, chronically ill, chronically debilitated. reduced LOC HEENT: Normocephalic and atraumatic. Pupils are sluggish. NECK: Supple. LUNGS: expiratory rhonchi. Moderate air entry. still reduced; trach in place CARDIAC: S1 and S2. RRR The patient without murmurs, rubs, or gallops. ABDOMEN: Otherwise soft, nontender, and nondistended. GT EXTREMITIES: No cyanosis, clubbing, or edema. NEUROLOGIC: Grossly nonfocal. withdrawn reviewed and edited lines noted Laboratory Tests 12/06/16 02:00: White Blood Count 8.0, Red Blood Count 2.91L, Hemoglobin 10.0L, Hematocrit 29.4L , Mean Corpuscular Volume 101H, Mean Corpuscular Hemoglobin 34.4H, Mean Corpuscular Hemoglobin Concent 34.1, Red Cell Distribution Width 12.1, Platelet Count 371, Mean Platelet Volume 7.1, Neutrophils (%) (Auto) 67.2, Lymphocytes (% ) (Auto) 19.4L, Monocytes (%) (Auto) 7.3, Eosinophils (%) (Auto) 5.3H, Basophils (%) (Auto) 0.8, Sodium Level 139, Potassium Level 3.5, Chloride Level 101, Carbon Dioxide Level 27, Anion Gap 11, Blood Urea Nitrogen 9, Creatinine 0.4L, Estimat Glomerular Filtration Rate > 60, Glucose Level 141H, Calcium Level 7.6L, Vancomycin Level Trough 26.4H Current Medications Medications (Trade) Dose Ordered Sig/Pierre Route PRN Reason Start Time Stop Time Status Last Admin Dose Admin Acetaminophen (Tylenol) 650 mg Q4H PRN ORAL Mild Pain/Temp > 100.5 12/02/16 16:00 01/01/17 15:59 Al Hydroxide/Mg Hydroxide (Mylanta) 30 ml Q4H PRN ORAL Per rx protocol 12/02/16 17:00 01/01/17 16:59 Amlodipine Besylate (Norvasc) 2.5 mg DAILY ORAL 12/03/16 09:00 01/02/17 08:59 12/06/16 09:19 Artificial Tears (Akwa-Tears) 2 drop Q12HR BOTH EYES 12/02/16 21:00 01/01/17 20:59 12/06/16 08:57 Dextrose (Dextrose 50%) STAT PRN IV Hypoglycemia 12/02/16 16:00 01/01/17 15:59 Dextrose/ Electrolytes 1,000 ml @ 45 mls/hr [id number] IV 12/02/16 15:30 01/01/17 15:29 12/06/16 09:19 Ertapenem/Sodium Chloride (INVanz/Sodium Chloride) 110 ml @ 220 mls/hr Q24H IVPB 12/03/16 13:00 12/08/16 12:59 12/05/16 12:15 Heparin Sodium (Porcine) (Heparin 5000 units/ml) 5,000 units EVERY 12 HOURS SUBQ 12/02/16 21:00 01/01/17 20:59 12/06/16 09:22 Insulin Aspart (NovoLOG) Q6HR SUBQ 12/02/16 18:00 01/01/17 17:59 12/06/16 06:16 Morphine Sulfate (Morphine Sulfate) 3 mg Q4H PRN IVP PAIN 4-10 12/02/16 15:00 12/09/16 14:59 Pantoprazole (Protonix) 40 mg DAILY ORAL 12/03/16 09:00 01/02/17 08:59 12/06/16 09:19 Vancomycin HCl 1 ea 1 ea DAILY PRN MISC Per rx protocol 12/02/16 16:00 01/01/17 15:59 Vancomycin HCl/ Sodium Chloride (Vancomycin/ Sodium Chloride) 325 ml @ 162.5 mls/ hr Q12H IVPB 12/04/16 03:00 12/08/16 13:59 Future Hold 12/06/16 03:05 DEREJE CASTANO Dec 06, 2016 10:54
--- NOTE | 2016-12-06 10:55 | Infectious Diseases Prog Note ---
"Assessment/Plan Assessment/Plan antibiotics : vancomycin iv, ertapenem A 1. pneumonia 2. loculated pleural effusion s/p thoracentesis s/p VATS | decortication 3. DM 4. respiratory failure 5. right arm cellulitis improving P 1. continue ertapenem, iv vancomycin 2. will follow up cultures Subjective ROS Limited/Unobtainable: Yes Allergies: Coded Allergies: No Known Allergies (Unverified , 11/23/16) Objective Vital Signs Last 24 Hour Vital Signs Date Time Temp Pulse Resp B/P Pulse Ox O2 Delivery O2 Flow Rate FiO2 12/06/16 09:19 103 141/86 12/06/16 08:49 103 21 40 12/06/16 08:00 98.4 97 13 129/71 100 Mechanical Ventilator 40 12/06/16 08:00 40 12/06/16 08:00 97 12/06/16 07:20 104 19 40 12/06/16 05:06 101 14 40 12/06/16 04:00 98.4 96 17 141/86 98 Mechanical Ventilator 40 12/06/16 04:00 96 12/06/16 04:00 40 12/06/16 03:13 94 13 40 12/06/16 01:05 88 13 40 12/06/16 00:00 40 12/06/16 00:00 98.2 94 18 126/84 98 Mechanical Ventilator 40 12/06/16 00:00 94 12/05/16 23:05 88 13 40 12/05/16 20:33 90 12 40 12/05/16 20:00 98.1 85 20 126/76 95 Mechanical Ventilator 40 12/05/16 20:00 40 12/05/16 20:00 84 12/05/16 18:49 88 12 40 12/05/16 17:01 88 12 40 12/05/16 16:00 84 12/05/16 16:00 97.9 85 20 104/78 95 Mechanical Ventilator 40 12/05/16 16:00 40 12/05/16 15:10 87 12 40 12/05/16 13:07 93 15 40 12/05/16 12:00 99.0 96 17 139/73 96 Mechanical Ventilator 40 12/05/16 12:00 40 12/05/16 12:00 91 Height (Feet): 5 Height (Inches): 5.00 Weight (Pounds): 175 HEENT: status post trach Respiratory/Chest: lungs clear, other - right CT Cardiovascular: normal rate, regular rhythm, no gallop/murmur Abdomen: soft, non tender, other - GT Extremities: no edema Laboratory Tests Test 12/06/16 02:00 White Blood Count 8.0 K/UL (4.8-10.8) Red Blood Count 2.91 M/UL (4.70-6.10) L Hemoglobin 10.0 G/DL (14.2-18.0) L Hematocrit 29.4 % (42.0-52.0) L Mean Corpuscular Volume 101 FL (80-99) H Mean Corpuscular Hemoglobin 34.4 PG (27.0-31.0) H Mean Corpuscular Hemoglobin Concent 34.1 G/DL (32.0-36.0) Red Cell Distribution Width 12.1 % (11.6-14.8) Platelet Count 371 K/UL (150-450) Mean Platelet Volume 7.1 FL (6.5-10.1) Neutrophils (%) (Auto) 67.2 % (45.0-75.0) Lymphocytes (%) (Auto) 19.4 % (20.0-45.0) L Monocytes (%) (Auto) 7.3 % (1.0-10.0) Eosinophils (%) (Auto) 5.3 % (0.0-3.0) H Basophils (%) (Auto) 0.8 % (0.0-2.0) Sodium Level 139 mEQ/L (135-145) Potassium Level 3.5 mEQ/L (3.4-4.9) Chloride Level 101 mEQ/L (98-107) Carbon Dioxide Level 27 mEQ/L (20-30) Anion Gap 11 (5-15) Blood Urea Nitrogen 9 mg/dL (7-23) Creatinine 0.4 mg/dL (0.7-1.2) L Estimat Glomerular Filtration Rate > 60 mL/min (>60) Glucose Level 141 mg/dL (74-106) H Calcium Level 7.6 mg/dL (8.6-10.2) L Vancomycin Level Trough 26.4 ug/mL (5.0-12.0) H HELDER ZAMORA Dec 06, 2016 10:55"
[2016-12-06 12:00] VITALS: BP 134/84
[2016-12-06] MEDS: Ertapenem 1 GM in NS 110 ML IVPB SCH (12:18)
--- NOTE | 2016-12-06 13:42 | General Progress Note ---
Progress Note Progress Note AfebVSS R CT with 150 cc drainage, no leak CXR opacified lung WBC [address] on suction Will follow RUTH ELLISON M.D. Dec 06, 2016 13:42
--- NOTE | 2016-12-06 13:55 | Diagnostic Imaging Report ---
Indication: PNEUMOTX, shortness of breath Technique: One view of the chest Comparison: 12/05/2016 Findings: Right chest tube remains in place. There is persistent near-complete opacification of the right hemithorax. There is a small amount of aerated lung right lung apex which appears slightly increased in extent from the prior study. Right subclavian central venous catheter remains. Left lung and pleural space remain clear. Tracheostomy remains. Impression: Only slightly improved aeration of the right upper lung, but still near complete opacification of the right hemithorax. Other findings as noted Findings previously discussed by phone with Dr. Wilson
--- NOTE | 2016-12-06 14:08 | Diagnostic Imaging Report ---
Indication: Chest Pain Comparison: 12/02/16 A single view chest radiograph was obtained. Findings: Right chest tube is present. There is a small right pleural effusion. Tracheostomy noted. Cardiomegaly is present. The bones are slightly osteopenic. Impression: No significant jacket changer one-day
--- NOTE | 2016-12-06 14:10 | Diagnostic Imaging Report ---
Indication: SOB Technique: One view of the chest Comparison: none Findings: Patient is rotated to the right. There are is normal right pleural thickening versus fluid. There is considerable right-sided parenchymal opacity. Left lung and pleural space are probably clear. Arch size is indeterminate as the heart border is obscured on the right by the surrounding pulmonary parenchymal disease. Impression: Right-sided pleural thickening versus effusion and likely underlying parenchymal consolidation. Other findings as noted
[2016-12-06 16:00] VITALS: BP 134/68
[2016-12-06] MEDS: Vancomycin 1250mg/D5W 275ml IVPB SCH ×4 (17:13→18:02)
[2016-12-06 20:00] VITALS: BP 140/77
[2016-12-07] VITALS: BP 118/69
[2016-12-07] MEDS: NovoLOG Insulin Flexpen SUBQ SCH ×4 (00:24→18:07)
--- NOTE | 2016-12-07 00:28 | Operative Note - Dictated ---
DATE OF OPERATION: 12/06/2016 BRONCHOSCOPY REPORT PREOPERATIVE DIAGNOSIS: Mucus plugging. POSTOPERATIVE DIAGNOSIS: Mucus plugging. INDICATION: Persistent collapse of the right lung. CONSENT: After risks and benefits were explained to the patient's , an informed consent was obtained and placed in the chart. DESCRIPTION OF PROCEDURE: Using no additional conscious sedation, a fiberoptic bronchoscope was passed via the tracheostomy and the left endobronchial tree was examined in detail. The patient's right and left lung revealed mild amount of secretions and mucus plugs, which were easily lavaged. There was no evidence of endobronchial lesions noted. The patient did have diffuse tracheobronchitis. The patient tolerated the procedure well and remained on the ventilator throughout the procedure. Blood pressure, EKG, and oximetry were continuously monitored during the procedure and they were noted to be within normal range. FINDINGS: 1. Moderate diffuse tracheobronchitis. 2. Mild amount of secretions and mucus plugging, lavaged to clear. DISPOSITION: To remain in the [facility]. The case was assisted with both RI and RT at the bedside. Rosendo Wilson M.D. DR: MARINA JOB#: [id number] CC:
[2016-12-07 04:00] VITALS: BP 121/71
[2016-12-07] MEDS: Vancomycin 1250mg/D5W 275ml IVPB SCH ×4 (05:47→18:05)
[2016-12-07] MEDS: D5 1/2NS w/KCl 20mEq 1,000 ML IV SCH (05:48)
[2016-12-07 08:00] VITALS: BP 134/79
[2016-12-07] MEDS: Artificial Tears 1.4% Op Soln BOTH EYES SCH ×2 (08:43→21:00)
--- NOTE | 2016-12-07 08:56 | Pulmonology Progress Note ---
Assessment/Plan Assessment/Plan IMPRESSIONS: 1. Pneumonia. 2. Respiratory failure 3. Hypertension. 4. Sinus tachycardia without fevers. 5. Possible sepsis. 6. Lactic acidemia. 7. History of seizures. 8. History of chronic encephalopathy. 9. hypernatremia 10. pleural effusion s/p decortication 11. trach PLAN care noted follow up chest xr ventilator for now labs noted monitor lytes IV antibiotics noted; ID reviewed respiratory care remains guarded all reviewed and discussed will need improvement in chest xr; repeat order ?trapped impression, plan, and exam edited and reviewed in detail care discussed with RN Subjective ROS Limited/Unobtainable: Yes Allergies: Coded Allergies: No Known Allergies (Unverified , 11/23/16) Subjective on ventilator poor LOC in [facility] bronchoscopy with minimal secretions Objective Last 24 Hour Vital Signs Date Time Temp Pulse Resp B/P Pulse Ox O2 Delivery O2 Flow Rate FiO2 12/07/16 08:45 87 12/07/16 08:00 40 12/07/16 06:40 90 13 40 12/07/16 05:22 91 13 40 12/07/16 04:00 40 12/07/16 04:00 86 12/07/16 04:00 98.4 92 18 121/71 98 Mechanical Ventilator 40 12/07/16 03:25 91 16 40 12/07/16 01:11 86 12 40 12/07/16 00:00 40 12/07/16 00:00 98.2 83 16 118/69 98 Mechanical Ventilator 40 12/07/16 00:00 86 12/06/16 23:21 89 14 40 12/06/16 21:12 84 12 40 12/06/16 20:00 40 12/06/16 20:00 92 12/06/16 20:00 97.7 92 18 140/77 100 Mechanical Ventilator 40 12/06/16 19:15 98 12 40 12/06/16 16:48 99 15 40 12/06/16 16:00 40 12/06/16 16:00 98.8 90 15 134/68 100 Mechanical Ventilator 40 12/06/16 16:00 95 12/06/16 14:48 95 21 40 12/06/16 13:19 85 12 40 12/06/16 12:00 96 12/06/16 12:00 98.4 96 16 134/84 100 Mechanical Ventilator 40 12/06/16 12:00 40 12/06/16 11:04 86 12 40 12/06/16 09:19 103 141/86 Intake and Output 12/06/16 12/07/16 19:00 07:00 Intake Total 1278.3 ml 1580.0 ml Output Total 1800 ml Balance 1278.3 ml -220.0 ml Intake Free Water 50 ml 150 ml IV Total 898.3 ml 770.0 ml Tube Feeding 330 ml 660 ml Output Urine Total 1780 ml Chest Tube Drainage Total 20 ml # Bowel Movements 2 1 Objective GENERAL: The patient is a well-developed male, chronically ill, chronically debilitated. reduced LOC HEENT: Normocephalic and atraumatic. Pupils are sluggish. NECK: Supple. LUNGS: expiratory rhonchi. Moderate air entry. still reduced; trach in place CARDIAC: S1 and S2. RRR The patient without murmurs, rubs, or gallops. ABDOMEN: Otherwise soft, nontender, and nondistended. GT EXTREMITIES: No cyanosis, clubbing, or edema. NEUROLOGIC: Grossly nonfocal. withdrawn reviewed and edited lines noted Laboratory Tests 12/06/16 14:45: Vancomycin Level Trough 11.5 Current Medications Medications (Trade) Dose Ordered Sig/Pierre Route PRN Reason Start Time Stop Time Status Last Admin Dose Admin Acetaminophen (Tylenol) 650 mg Q4H PRN ORAL Mild Pain/Temp > 100.5 12/02/16 16:00 01/01/17 15:59 Al Hydroxide/Mg Hydroxide (Mylanta) 30 ml Q4H PRN ORAL Per rx protocol 12/02/16 17:00 01/01/17 16:59 Amlodipine Besylate (Norvasc) 2.5 mg DAILY ORAL 12/03/16 09:00 01/02/17 08:59 12/06/16 09:19 Artificial Tears (Akwa-Tears) 2 drop Q12HR BOTH EYES 12/02/16 21:00 01/01/17 20:59 12/07/16 08:43 Dextrose (Dextrose 50%) STAT PRN IV Hypoglycemia 12/02/16 16:00 01/01/17 15:59 Dextrose/ Electrolytes (D5 0.45%NS W/ KCl 20mEq) 1,000 ml @ 45 mls/hr [id number] IV 12/02/16 15:30 01/01/17 15:29 12/07/16 05:48 Ertapenem 1 gm/ Sodium Chloride 110 ml @ 220 mls/hr Q24H IVPB 12/06/16 13:00 12/11/16 12:59 12/06/16 12:18 Heparin Sodium (Porcine) (Heparin 5000 units/ml) 5,000 units EVERY 12 HOURS SUBQ 12/02/16 21:00 01/01/17 20:59 12/06/16 20:32 Insulin Aspart (NovoLOG) Q6HR SUBQ 12/02/16 18:00 01/01/17 17:59 12/07/16 06:04 Morphine Sulfate (Morphine Sulfate) 3 mg Q4H PRN IVP PAIN 4-10 12/02/16 15:00 12/09/16 14:59 Pantoprazole (Protonix) 40 mg DAILY ORAL 12/03/16 09:00 01/02/17 08:59 12/06/16 09:19 Vancomycin HCl 1 ea 1 ea DAILY PRN MISC Per rx protocol 12/02/16 16:00 01/01/17 15:59 Vancomycin HCl/ Dextrose (Vancomycin/D5W) 275 ml @ 183.333 mls/hr Q12HR@0600,1800 IVPB 12/06/16 18:00 12/11/16 17:59 12/07/16 05:47 DEREJE CASTANO Dec 07, 2016 08:56
[2016-12-07] MEDS: Heparin 5000 units/ml inj SUBQ SCH ×2 (09:52→21:46)
--- NOTE | 2016-12-07 11:21 | Diagnostic Imaging Report ---
Indication: Dyspnea Comparison: 12/06/16 A single view chest radiograph was obtained. Findings: Right chest tube again noted. Right subclavian venous catheter has been removed. Left lung is clear. The right lung is completely opacified with a small focus of aeration in the right upper lobe. There is some volume loss on the right. Impression: Findings largely unchanged from the last day
[2016-12-07 12:00] VITALS: BP 127/71
[2016-12-07] MEDS: Ertapenem 1 GM in NS 110 ML IVPB SCH (13:30)
--- NOTE | 2016-12-07 13:47 | Infectious Diseases Prog Note ---
Assessment/Plan Assessment/Plan A: Pleural effusion Pneumonia Elevated transaminase Encephalopathy Pleural effusion, s/p decortication R arm cellulitis DM Cholelithiasis P: continue Ertapenem & Vancomycin Subjective ROS Limited/Unobtainable: Yes Allergies: Coded Allergies: No Known Allergies (Unverified , 11/23/16) Objective Vital Signs Last 24 Hour Vital Signs Date Time Temp Pulse Resp B/P Pulse Ox O2 Delivery O2 Flow Rate FiO2 12/07/16 12:30 90 13 40 12/07/16 12:00 40 12/07/16 12:00 96 12/07/16 12:00 98.8 96 21 127/71 99 Mechanical Ventilator 40 12/07/16 11:00 90 13 40 12/07/16 09:52 92 134/79 12/07/16 08:45 87 12/07/16 08:45 92 13 40 12/07/16 08:00 98.1 82 22 134/79 99 Mechanical Ventilator 40 12/07/16 08:00 40 12/07/16 06:40 90 13 40 12/07/16 05:22 91 13 40 12/07/16 04:00 40 12/07/16 04:00 86 12/07/16 04:00 98.4 92 18 121/71 98 Mechanical Ventilator 40 12/07/16 03:25 91 16 40 12/07/16 01:11 86 12 40 12/07/16 00:00 40 12/07/16 00:00 98.2 83 16 118/69 98 Mechanical Ventilator 40 12/07/16 00:00 86 12/06/16 23:21 89 14 40 12/06/16 21:12 84 12 40 12/06/16 20:00 40 12/06/16 20:00 92 12/06/16 20:00 97.7 92 18 140/77 100 Mechanical Ventilator 40 12/06/16 19:15 98 12 40 12/06/16 16:48 99 15 40 12/06/16 16:00 40 12/06/16 16:00 98.8 90 15 134/68 100 Mechanical Ventilator 40 12/06/16 16:00 95 12/06/16 14:48 95 21 40 Height (Feet): 5 Height (Inches): 5.00 Weight (Pounds): 175 General Appearance: no acute distress HEENT: status post trach, other - scar of craniotomy Respiratory/Chest: rhonchi - bilaterally, other - R side chest tube , decreased sounds in right lower lung Cardiovascular: normal rate Abdomen: soft, non tender, other - GT feeding Extremities: no edema Neurologic/Psychiatric: aphasia Laboratory Tests Test 12/06/16 14:45 Vancomycin Level Trough 11.5 ug/mL (5.0-12.0) Current Medications Medications (Trade) Dose Ordered Sig/Pierre Route PRN Reason Start Time Stop Time Status Last Admin Dose Admin Acetaminophen (Tylenol) 650 mg Q4H PRN ORAL Mild Pain/Temp > 100.5 12/02/16 16:00 01/01/17 15:59 Al Hydroxide/Mg Hydroxide (Mylanta) 30 ml Q4H PRN ORAL Per rx protocol 12/02/16 17:00 01/01/17 16:59 Amlodipine Besylate (Norvasc) 2.5 mg DAILY ORAL 12/03/16 09:00 01/02/17 08:59 12/07/16 09:52 Artificial Tears (Akwa-Tears) 2 drop Q12HR BOTH EYES 12/02/16 21:00 01/01/17 20:59 12/07/16 08:43 Dextrose (Dextrose 50%) STAT PRN IV Hypoglycemia 12/02/16 16:00 01/01/17 15:59 Dextrose/ Electrolytes (D5 0.45%NS W/ KCl 20mEq) 1,000 ml @ 45 mls/hr [id number] IV 12/02/16 15:30 01/01/17 15:29 12/07/16 05:48 Ertapenem 1 gm/ Sodium Chloride 110 ml @ 220 mls/hr Q24H IVPB 12/06/16 13:00 12/11/16 12:59 12/07/16 13:30 Heparin Sodium (Porcine) (Heparin 5000 units/ml) 5,000 units EVERY 12 HOURS SUBQ 12/02/16 21:00 01/01/17 20:59 12/07/16 09:52 Insulin Aspart (NovoLOG) Q6HR SUBQ 12/02/16 18:00 01/01/17 17:59 12/07/16 06:04 Morphine Sulfate (Morphine Sulfate) 3 mg Q4H PRN IVP PAIN 4-10 12/02/16 15:00 12/09/16 14:59 Pantoprazole (Protonix) 40 mg DAILY ORAL 12/03/16 09:00 01/02/17 08:59 12/07/16 09:51 Vancomycin HCl 1 ea 1 ea DAILY PRN MISC Per rx protocol 12/02/16 16:00 01/01/17 15:59 Vancomycin HCl/ Dextrose (Vancomycin/D5W) 275 ml @ 183.333 mls/hr Q12HR@0600,1800 IVPB 12/06/16 18:00 12/11/16 17:59 12/07/16 05:47 REINALDO HUTCHINSON Dec 07, 2016 13:47
[2016-12-07 16:00] VITALS: BP 125/71
[2016-12-07 20:00] VITALS: BP 119/68
[2016-12-08] VITALS: BP 137/85
[2016-12-08] MEDS: NovoLOG Insulin Flexpen SUBQ SCH ×4 (00:36→18:04)
[2016-12-08 04:00] VITALS: BP 132/76
[2016-12-08] MEDS: D5 1/2NS w/KCl 20mEq 1,000 ML IV SCH (04:20)
[2016-12-08] MEDS: Vancomycin 1250mg/D5W 275ml IVPB SCH ×4 (06:20→18:04)
--- NOTE | 2016-12-08 07:15 | Pulmonology Progress Note ---
Assessment/Plan Assessment/Plan IMPRESSIONS: 1. Pneumonia. 2. Respiratory failure 3. Hypertension. 4. Sinus tachycardia without fevers. 5. Possible sepsis. 6. Lactic acidemia. 7. History of seizures. 8. History of chronic encephalopathy. 9. hypernatremia 10. pleural effusion s/p decortication 11. trach 12. abnormal chest xr PLAN care noted follow up chest xr today thus far not improved ventilator for now and positive pressure labs noted monitor lytes IV antibiotics noted; ID reviewed respiratory care remains guarded all reviewed and discussed will need improvement in chest xr; repeat order ?trapped thoracic follow up appreciated impression, plan, and exam edited and reviewed in detail care discussed with RN Subjective ROS Limited/Unobtainable: Yes Allergies: Coded Allergies: No Known Allergies (Unverified , 11/23/16) Subjective on ventilator poor LOC in [facility] bronchoscopy with minimal secretions cxr not improved Objective Last 24 Hour Vital Signs Date Time Temp Pulse Resp B/P Pulse Ox O2 Delivery O2 Flow Rate FiO2 12/08/16 05:00 101 16 40 12/08/16 04:00 40 12/08/16 04:00 90 12/08/16 04:00 98.8 91 14 132/76 98 Mechanical Ventilator 40 12/08/16 03:20 94 16 40 12/08/16 01:15 94 14 40 12/08/16 00:00 87 12/08/16 00:00 40 12/08/16 00:00 98.4 89 14 137/85 97 Mechanical Ventilator 40 12/07/16 23:00 89 14 40 12/07/16 20:36 85 14 40 12/07/16 20:00 40 12/07/16 20:00 97.9 89 18 119/68 99 12/07/16 20:00 89 12/07/16 19:20 86 14 40 12/07/16 16:40 89 13 40 12/07/16 16:10 40 12/07/16 16:00 97.0 92 17 125/71 12/07/16 16:00 90 12/07/16 14:40 95 13 40 12/07/16 12:30 90 13 40 12/07/16 12:00 40 12/07/16 12:00 96 12/07/16 12:00 98.8 96 21 127/71 99 Mechanical Ventilator 40 12/07/16 11:00 90 13 40 12/07/16 09:52 92 134/79 12/07/16 08:45 87 12/07/16 08:45 92 13 40 12/07/16 08:00 98.1 82 22 134/79 99 Mechanical Ventilator 40 12/07/16 08:00 40 Intake and Output 12/07/16 12/08/16 19:00 07:00 Intake Total 1250 ml 1363 ml Output Total 1030 ml 1930 ml Balance 220 ml -567 ml Intake Free Water 100 ml 110 ml IV Total 495 ml 543 ml Tube Feeding 605 ml 660 ml Other 50 ml 50 ml Output Urine Total 1000 ml 1900 ml Chest Tube Drainage Total 30 ml 30 ml # Bowel Movements 2 Objective GENERAL: The patient is a well-developed male, chronically ill, chronically debilitated. reduced LOC HEENT: Normocephalic and atraumatic. Pupils are sluggish. NECK: Supple. LUNGS: expiratory rhonchi. Moderate air entry. still reduced; trach in place CARDIAC: S1 and S2. RRR The patient without murmurs, rubs, or gallops. ABDOMEN: Otherwise soft, nontender, and nondistended. GT EXTREMITIES: No cyanosis, clubbing, or edema. NEUROLOGIC: Grossly nonfocal. withdrawn reviewed and edited lines noted Laboratory Tests 12/08/16 05:00: Vancomycin Level Trough 13.2H Current Medications Medications (Trade) Dose Ordered Sig/Pierre Route PRN Reason Start Time Stop Time Status Last Admin Dose Admin Acetaminophen (Tylenol) 650 mg Q4H PRN ORAL Mild Pain/Temp > 100.5 12/02/16 16:00 01/01/17 15:59 Al Hydroxide/Mg Hydroxide (Mylanta) 30 ml Q4H PRN ORAL Per rx protocol 12/02/16 17:00 01/01/17 16:59 Amlodipine Besylate (Norvasc) 2.5 mg DAILY ORAL 12/03/16 09:00 01/02/17 08:59 12/07/16 09:52 Artificial Tears (Akwa-Tears) 2 drop Q12HR BOTH EYES 12/02/16 21:00 01/01/17 20:59 12/07/16 21:00 Dextrose (Dextrose 50%) STAT PRN IV Hypoglycemia 12/02/16 16:00 01/01/17 15:59 Dextrose/ Electrolytes (D5 0.45%NS W/ KCl 20mEq) 1,000 ml @ 45 mls/hr [id number] IV 12/02/16 15:30 01/01/17 15:29 12/08/16 04:20 Ertapenem 1 gm/ Sodium Chloride 110 ml @ 220 mls/hr Q24H IVPB 12/06/16 13:00 12/11/16 12:59 12/07/16 13:30 Heparin Sodium (Porcine) (Heparin 5000 units/ml) 5,000 units EVERY 12 HOURS SUBQ 12/02/16 21:00 01/01/17 20:59 12/07/16 21:46 Insulin Aspart (NovoLOG) Q6HR SUBQ 12/02/16 18:00 01/01/17 17:59 12/08/16 06:20 Morphine Sulfate (Morphine Sulfate) 3 mg Q4H PRN IVP PAIN 4-10 12/02/16 15:00 12/09/16 14:59 Pantoprazole (Protonix) 40 mg DAILY ORAL 12/03/16 09:00 01/02/17 08:59 12/07/16 09:51 Vancomycin HCl 1 ea 1 ea DAILY PRN MISC Per rx protocol 12/02/16 16:00 01/01/17 15:59 Vancomycin HCl/ Dextrose (Vancomycin/D5W) 275 ml @ 183.333 mls/hr Q12HR@0600,1800 IVPB 12/06/16 18:00 12/11/16 17:59 12/08/16 06:20 DEREJE CASTANO Dec 08, 2016 07:15
[2016-12-08 08:00] VITALS: BP 158/87
[2016-12-08] MEDS: Artificial Tears 1.4% Op Soln BOTH EYES SCH ×2 (08:58→20:02)
[2016-12-08] MEDS: Pantoprazole Inj IVP SCH (08:59)
[2016-12-08] MEDS: Heparin 5000 units/ml inj SUBQ SCH ×2 (09:02→20:04)
--- NOTE | 2016-12-08 09:15 | General Progress Note ---
Progress Note Progress Note AfebVSS R chest tube with min drainage, no airleak CXR improving aeration on the right WBC 8 Cont chest tube on suction RUTH ELLISON M.D. Dec 08, 2016 09:15
--- NOTE | 2016-12-08 09:34 | Wound Nurse Progress Note ---
Wound RN Progress Note Wound Consult reassessed blister sites noted some intact and some ruptured . no further change noted, current treatment remains effective. KATHIA YBARRA Dec 08, 2016 09:34
--- NOTE | 2016-12-08 11:01 | Infectious Diseases Prog Note ---
Assessment/Plan Assessment/Plan A: Pleural effusion Pneumonia Elevated transaminase Encephalopathy Pleural effusion, s/p decortication R arm cellulitis DM Cholelithiasis P: continue Ertapenem & Vancomycin Subjective ROS Limited/Unobtainable: Yes Allergies: Coded Allergies: No Known Allergies (Unverified , 11/23/16) Objective Vital Signs Last 24 Hour Vital Signs Date Time Temp Pulse Resp B/P Pulse Ox O2 Delivery O2 Flow Rate FiO2 12/08/16 09:05 97 16 40 12/08/16 08:59 90 158/87 12/08/16 08:15 88 16 40 12/08/16 08:00 98.1 90 16 158/87 98 Mechanical Ventilator 40 12/08/16 08:00 40 12/08/16 08:00 87 12/08/16 05:00 101 16 40 12/08/16 04:00 40 12/08/16 04:00 90 12/08/16 04:00 98.8 91 14 132/76 98 Mechanical Ventilator 40 12/08/16 03:20 94 16 40 12/08/16 01:15 94 14 40 12/08/16 00:00 87 12/08/16 00:00 40 12/08/16 00:00 98.4 89 14 137/85 97 Mechanical Ventilator 40 12/07/16 23:00 89 14 40 12/07/16 20:36 85 14 40 12/07/16 20:00 40 12/07/16 20:00 97.9 89 18 119/68 99 12/07/16 20:00 89 12/07/16 19:20 86 14 40 12/07/16 16:40 89 13 40 12/07/16 16:10 40 12/07/16 16:00 97.0 92 17 125/71 12/07/16 16:00 90 12/07/16 14:40 95 13 40 12/07/16 12:30 90 13 40 12/07/16 12:00 40 12/07/16 12:00 96 12/07/16 12:00 98.8 96 21 127/71 99 Mechanical Ventilator 40 12/07/16 11:00 90 13 40 Height (Feet): 5 Height (Inches): 5.00 Weight (Pounds): 175 General Appearance: no acute distress HEENT: status post trach, other - scar of craniotomy Respiratory/Chest: other - R side chest tube, sound in R base, decreased rhonchi in other areas Abdomen: soft, non tender, other - GT feeding Extremities: no edema Neurologic/Psychiatric: unresponsiveness Laboratory Tests Test 12/08/16 05:00 Vancomycin Level Trough 13.2 ug/mL (5.0-12.0) H Current Medications Medications (Trade) Dose Ordered Sig/Pierre Route PRN Reason Start Time Stop Time Status Last Admin Dose Admin Acetaminophen (Tylenol) 650 mg Q4H PRN ORAL Mild Pain/Temp > 100.5 12/02/16 16:00 01/01/17 15:59 Al Hydroxide/Mg Hydroxide (Mylanta) 30 ml Q4H PRN ORAL Per rx protocol 12/02/16 17:00 01/01/17 16:59 Amlodipine Besylate (Norvasc) 2.5 mg DAILY ORAL 12/03/16 09:00 01/02/17 08:59 12/08/16 08:59 Artificial Tears (Akwa-Tears) 2 drop Q12HR BOTH EYES 12/02/16 21:00 01/01/17 20:59 12/08/16 08:58 Dextrose (Dextrose 50%) STAT PRN IV Hypoglycemia 12/02/16 16:00 01/01/17 15:59 Dextrose/ Electrolytes (D5 0.45%NS W/ KCl 20mEq) 1,000 ml @ 45 mls/hr [id number] IV 12/02/16 15:30 01/01/17 15:29 12/08/16 04:20 Ertapenem 1 gm/ Sodium Chloride 110 ml @ 220 mls/hr Q24H IVPB 12/06/16 13:00 12/11/16 12:59 12/07/16 13:30 Heparin Sodium (Porcine) (Heparin 5000 units/ml) 5,000 units EVERY 12 HOURS SUBQ 12/02/16 21:00 01/01/17 20:59 12/08/16 09:02 Insulin Aspart (NovoLOG) Q6HR SUBQ 12/02/16 18:00 01/01/17 17:59 12/08/16 06:20 Morphine Sulfate (Morphine Sulfate) 3 mg Q4H PRN IVP PAIN 4-10 12/02/16 15:00 12/09/16 14:59 Pantoprazole (Protonix) 40 mg DAILY IVP 12/08/16 09:00 01/07/17 08:59 12/08/16 08:59 Vancomycin HCl 1 ea 1 ea DAILY PRN MISC Per rx protocol 12/02/16 16:00 01/01/17 15:59 Vancomycin HCl/ Dextrose (Vancomycin/D5W) 275 ml @ 183.333 mls/hr Q12HR@0600,1800 IVPB 12/06/16 18:00 12/11/16 17:59 12/08/16 06:20 REINALDO HUTCHINSON Dec 08, 2016 11:01
--- NOTE | 2016-12-08 11:19 | Diagnostic Imaging Report ---
Indication: SOB Technique: One view of the chest Comparison: 12/07/2016 Findings: Right-sided chest tube remains in stable position. There is interim improvement of aeration of the right lung, but significant volume loss persists. The left lung and pleural space remain clear. The heart is enlarged. Tracheostomy remains Impression: Improved right lung aeration but still considerable volume loss, over one day Other stable findings as described
[2016-12-08 12:09] VITALS: BP 129/76
[2016-12-08] MEDS: Ertapenem 1 GM in NS 110 ML IVPB SCH (12:30)
[2016-12-08 16:00] VITALS: BP 123/61
[2016-12-08 19:00] VITALS: BP 125/80
[2016-12-09] VITALS: BP 147/84
[2016-12-09] MEDS: NovoLOG Insulin Flexpen SUBQ SCH ×4 (00:12→17:58)
[2016-12-09 04:00] VITALS: BP 140/83
[2016-12-09] MEDS: D5 1/2NS w/KCl 20mEq 1,000 ML IV SCH (04:00)
[2016-12-09] MEDS: Vancomycin 1250mg/D5W 275ml IVPB SCH ×2 (05:07)
--- NOTE | 2016-12-09 07:38 | Pulmonology Progress Note ---
Assessment/Plan Assessment/Plan IMPRESSIONS: 1. Pneumonia. 2. Respiratory failure 3. Hypertension. 4. Sinus tachycardia without fevers. 5. Possible sepsis. 6. Lactic acidemia. 7. History of seizures. 8. History of chronic encephalopathy. 9. hypernatremia 10. pleural effusion s/p decortication 11. trach 12. abnormal chest xr PLAN care noted follow up chest xr for change seems improved ventilator for now and positive pressure labs noted monitor lytes IV antibiotics noted; ID reviewed respiratory care remains guarded all reviewed and discussed monitor for change and hope to dc soon impression, plan, and exam edited and reviewed in detail care discussed with RN Subjective ROS Limited/Unobtainable: Yes Allergies: Coded Allergies: No Known Allergies (Unverified , 11/23/16) Subjective on ventilator poor LOC in [facility] cxr improved Objective Last 24 Hour Vital Signs Date Time Temp Pulse Resp B/P Pulse Ox O2 Delivery O2 Flow Rate FiO2 12/09/16 06:55 83 12 35 12/09/16 05:21 85 13 40 12/09/16 04:00 40 12/09/16 04:00 97.9 91 12 140/83 98 Mechanical Ventilator 40 12/09/16 03:53 85 12/09/16 03:17 73 14 40 12/09/16 01:06 94 12 40 12/09/16 00:00 98.0 93 12 147/84 94 Mechanical Ventilator 40 12/09/16 00:00 40 12/08/16 23:38 92 12/08/16 23:21 88 12 40 12/08/16 21:10 91 17 40 12/08/16 20:26 81 12/08/16 20:00 40 12/08/16 19:13 85 12 40 12/08/16 19:00 97.5 90 20 125/80 98 Mechanical Ventilator 40 12/08/16 16:51 83 14 40 12/08/16 16:00 96.8 79 20 123/61 99 Mechanical Ventilator 40 12/08/16 16:00 40 12/08/16 15:57 78 12/08/16 15:26 90 16 40 12/08/16 12:54 85 16 40 12/08/16 12:09 98.1 85 12 129/76 97 Mechanical Ventilator 40 12/08/16 12:09 40 12/08/16 12:00 80 12/08/16 11:01 89 13 40 12/08/16 09:05 97 16 40 12/08/16 08:59 90 158/87 12/08/16 08:15 88 16 40 12/08/16 08:00 98.1 90 16 158/87 98 Mechanical Ventilator 40 12/08/16 08:00 40 12/08/16 08:00 87 Intake and Output 12/08/16 12/09/16 19:00 07:00 Intake Total 1655.0 ml 1973.333 ml Output Total 1200 ml 1430 ml Balance 455.0 ml 543.333 ml Intake Free Water 250 ml 450 ml IV Total 745.0 ml 863.333 ml Tube Feeding 660 ml 660 ml Output Urine Total 1200 ml 1400 ml Chest Tube Drainage Total 0 ml 30 ml Objective GENERAL: The patient is a well-developed male, chronically ill, chronically debilitated. reduced LOC HEENT: Normocephalic and atraumatic. Pupils are sluggish. NECK: Supple. LUNGS: improved rhonchi. Moderate air entry. still reduced; trach in place CARDIAC: S1 and S2. RRR The patient without murmurs, rubs, or gallops. ABDOMEN: Otherwise soft, nontender, and nondistended. GT EXTREMITIES: No cyanosis, clubbing, or edema. NEUROLOGIC: Grossly nonfocal. withdrawn reviewed and edited lines noted Current Medications Medications (Trade) Dose Ordered Sig/Pierre Route PRN Reason Start Time Stop Time Status Last Admin Dose Admin Acetaminophen (Tylenol) 650 mg Q4H PRN ORAL Mild Pain/Temp > 100.5 12/02/16 16:00 01/01/17 15:59 Al Hydroxide/Mg Hydroxide (Mylanta) 30 ml Q4H PRN ORAL Per rx protocol 12/02/16 17:00 01/01/17 16:59 Amlodipine Besylate (Norvasc) 2.5 mg DAILY ORAL 12/03/16 09:00 01/02/17 08:59 12/08/16 08:59 Artificial Tears (Akwa-Tears) 2 drop Q12HR BOTH EYES 12/02/16 21:00 01/01/17 20:59 12/08/16 20:02 Dextrose (Dextrose 50%) STAT PRN IV Hypoglycemia 12/02/16 16:00 01/01/17 15:59 Dextrose/ Electrolytes (D5 0.45%NS W/ KCl 20mEq) 1,000 ml @ 45 mls/hr [id number] IV 12/02/16 15:30 01/01/17 15:29 12/09/16 04:00 Ertapenem 1 gm/ Sodium Chloride 110 ml @ 220 mls/hr Q24H IVPB 12/06/16 13:00 12/11/16 12:59 12/08/16 12:30 Heparin Sodium (Porcine) (Heparin 5000 units/ml) 5,000 units EVERY 12 HOURS SUBQ 12/02/16 21:00 01/01/17 20:59 12/08/16 20:04 Insulin Aspart (NovoLOG) Q6HR SUBQ 12/02/16 18:00 01/01/17 17:59 12/09/16 06:21 Morphine Sulfate (Morphine Sulfate) 3 mg Q4H PRN IVP PAIN 4-10 12/02/16 15:00 12/09/16 14:59 Pantoprazole (Protonix) 40 mg DAILY IVP 12/08/16 09:00 01/07/17 08:59 12/08/16 08:59 Vancomycin HCl 1 ea 1 ea DAILY PRN MISC Per rx protocol 12/02/16 16:00 01/01/17 15:59 Vancomycin HCl/ Dextrose (Vancomycin/D5W) 275 ml @ 183.333 mls/hr Q12HR@0600,1800 IVPB 12/06/16 18:00 12/11/16 17:59 12/09/16 05:07 DEREJE CASTANO Dec 09, 2016 07:38
[2016-12-09 08:00] VITALS: BP 129/81
[2016-12-09] MEDS: Artificial Tears 1.4% Op Soln BOTH EYES SCH ×2 (08:18→20:45)
[2016-12-09] MEDS: Pantoprazole Inj IVP SCH (08:20)
[2016-12-09] MEDS: Heparin 5000 units/ml inj SUBQ SCH ×2 (08:20→20:45)
--- NOTE | 2016-12-09 10:56 | Infectious Diseases Prog Note ---
"Assessment/Plan Assessment/Plan antibiotics : vancomycin iv, ertapenem A 1. pneumonia 2. loculated pleural effusion s/p thoracentesis s/p VATS | decortication 3. DM 4. respiratory failure 5. right arm cellulitis improving P 1. continue ertapenem, iv vancomycin 2. sputum culture 3. will follow up cultures Subjective ROS Limited/Unobtainable: Yes Allergies: Coded Allergies: No Known Allergies (Unverified , 11/23/16) Objective Vital Signs Last 24 Hour Vital Signs Date Time Temp Pulse Resp B/P Pulse Ox O2 Delivery O2 Flow Rate FiO2 12/09/16 08:45 80 12 35 12/09/16 08:19 77 129/81 12/09/16 08:00 97.7 77 12 129/81 99 Mechanical Ventilator 35 12/09/16 08:00 83 12/09/16 08:00 40 12/09/16 06:55 83 12 35 12/09/16 05:21 85 13 40 12/09/16 04:00 40 12/09/16 04:00 97.9 91 12 140/83 98 Mechanical Ventilator 40 12/09/16 03:53 85 12/09/16 03:17 73 14 40 12/09/16 01:06 94 12 40 12/09/16 00:00 98.0 93 12 147/84 94 Mechanical Ventilator 40 12/09/16 00:00 40 12/08/16 23:38 92 12/08/16 23:21 88 12 40 12/08/16 21:10 91 17 40 12/08/16 20:26 81 12/08/16 20:00 40 12/08/16 19:13 85 12 40 12/08/16 19:00 97.5 90 20 125/80 98 Mechanical Ventilator 40 12/08/16 16:51 83 14 40 12/08/16 16:00 96.8 79 20 123/61 99 Mechanical Ventilator 40 12/08/16 16:00 40 12/08/16 15:57 78 12/08/16 15:26 90 16 40 12/08/16 12:54 85 16 40 12/08/16 12:09 98.1 85 12 129/76 97 Mechanical Ventilator 40 12/08/16 12:09 40 12/08/16 12:00 80 12/08/16 11:01 89 13 40 Height (Feet): 5 Height (Inches): 5.00 Weight (Pounds): 175 HEENT: status post trach Respiratory/Chest: lungs clear, other - right CT Cardiovascular: normal rate, regular rhythm, no gallop/murmur Abdomen: soft, non tender, other - GT Extremities: no edema HELDER ZAMORA Dec 09, 2016 10:56"
[2016-12-09 12:00] VITALS: BP 132/80
[2016-12-09] MEDS: Ertapenem 1 GM in NS 110 ML IVPB SCH (12:39)
[2016-12-09 16:00] VITALS: BP 116/70
[2016-12-09] MEDS: Vancomycin 1.25 GM in D5W 275 ML IVPB SCH (17:54)
[2016-12-09 20:00] VITALS: BP 129/80
[2016-12-10] VITALS: BP 121/76
[2016-12-10] MEDS: NovoLOG Insulin Flexpen SUBQ SCH ×5 (00:12→23:53)
[2016-12-10] MEDS: D5 1/2NS w/KCl 20mEq 1,000 ML IV SCH ×2 (01:25→23:45)
[2016-12-10 04:00] VITALS: BP 135/70
[2016-12-10] MEDS: Vancomycin 1.25 GM in D5W 275 ML IVPB SCH ×2 (05:42→17:57)
[2016-12-10 08:00] VITALS: BP 126/84
[2016-12-10] MEDS ORDERED: Sterile Water Irrig 1000ml IRRIG ONE ×2 (08:23→17:03)
[2016-12-10] MEDS ORDERED: Tubing IV Secondary IV ONE (08:23)
[2016-12-10] MEDS ORDERED: NS 275ml ONE (08:23)
[2016-12-10] MEDS: Artificial Tears 1.4% Op Soln BOTH EYES SCH ×2 (09:02→21:25)
[2016-12-10] MEDS: Heparin 5000 units/ml inj SUBQ SCH ×2 (09:03→21:26)
[2016-12-10] MEDS: Pantoprazole Inj IVP SCH (09:03)
--- NOTE | 2016-12-10 10:52 | Pulmonology Progress Note ---
Assessment/Plan Assessment/Plan IMPRESSIONS: 1. Pneumonia. 2. Respiratory failure 3. Hypertension. 4. Sinus tachycardia without fevers. 5. Possible sepsis. 6. Lactic acidemia. 7. History of seizures. 8. History of chronic encephalopathy. 9. hypernatremia 10. pleural effusion s/p decortication 11. trach 12. abnormal chest xr PLAN care noted and reviewed follow up chest xr for change today seems improved ventilator for now and positive pressure labs noted and will reorder monitor lytes IV antibiotics noted; ID reviewed respiratory care as is no wean remains guarded all reviewed and discussed monitor for change and hope to dc soon once cxr improved impression, plan, and exam edited and reviewed in detail care discussed with RN Subjective ROS Limited/Unobtainable: Yes Allergies: Coded Allergies: No Known Allergies (Unverified , 11/23/16) Subjective on ventilator poor LOC in [facility] cxr pending Objective Last 24 Hour Vital Signs Date Time Temp Pulse Resp B/P Pulse Ox O2 Delivery O2 Flow Rate FiO2 12/10/16 09:21 87 11 35 12/10/16 09:02 100 126/84 12/10/16 08:00 97.7 100 28 126/84 100 Mechanical Ventilator 35 12/10/16 08:00 90 12/10/16 08:00 35 12/10/16 07:19 88 17 35 12/10/16 05:05 83 14 35 12/10/16 04:00 97.9 82 18 135/70 96 Mechanical Ventilator 12/10/16 04:00 35 12/10/16 04:00 81 12/10/16 03:14 72 12 35 12/10/16 01:09 81 12 35 12/10/16 00:00 98.6 95 20 121/76 99 Mechanical Ventilator 12/10/16 00:00 35 12/09/16 23:47 87 12/09/16 23:18 78 14 35 12/09/16 21:10 85 13 35 12/09/16 20:00 91 12/09/16 20:00 40 12/09/16 20:00 98.2 94 18 129/80 97 Mechanical Ventilator 35 12/09/16 19:00 83 14 35 12/09/16 16:40 88 12 35 12/09/16 16:00 98.2 93 21 116/70 98 Mechanical Ventilator 35 12/09/16 16:00 91 12/09/16 16:00 40 12/09/16 15:20 81 14 35 12/09/16 13:01 83 12 35 12/09/16 12:00 80 12/09/16 12:00 97.9 89 17 132/80 99 Mechanical Ventilator 35 12/09/16 12:00 40 12/09/16 11:15 87 13 35 Intake and Output 12/09/16 12/10/16 19:00 07:00 Intake Total 1898.3 ml 2051.633 ml Output Total 1300 ml 50 ml Balance 598.3 ml 2001.633 ml Intake Free Water 450 ml 450 ml IV Total 788.3 ml 941.633 ml Tube Feeding 660 ml 660 ml Output Urine Total 1300 ml Chest Tube Drainage Total 0 ml 50 ml # Bowel Movements 1 Objective GENERAL: The patient is a well-developed male, chronically ill, chronically debilitated. reduced LOC HEENT: Normocephalic and atraumatic. Pupils are sluggish. NECK: Supple. LUNGS: some rhonchi right. Moderate air entry. still reduced right; trach in place CARDIAC: S1 and S2. RRR The patient without murmurs, rubs, or gallops. ABDOMEN: Otherwise soft, nontender, and nondistended. GT EXTREMITIES: No cyanosis, clubbing, or edema. NEUROLOGIC: Grossly nonfocal. withdrawn reviewed and edited lines noted and reviewed Laboratory Tests 12/09/16 16:40: Vancomycin Level Trough 14.8H Current Medications Medications (Trade) Dose Ordered Sig/Pierre Route PRN Reason Start Time Stop Time Status Last Admin Dose Admin Acetaminophen (Tylenol) 650 mg Q4H PRN ORAL Mild Pain/Temp > 100.5 12/02/16 16:00 01/01/17 15:59 Al Hydroxide/Mg Hydroxide (Mylanta) 30 ml Q4H PRN ORAL Per rx protocol 12/02/16 17:00 01/01/17 16:59 Amlodipine Besylate (Norvasc) 2.5 mg DAILY ORAL 12/03/16 09:00 01/02/17 08:59 12/10/16 09:02 Artificial Tears (Akwa-Tears) 2 drop Q12HR BOTH EYES 12/02/16 21:00 01/01/17 20:59 12/10/16 09:02 Dextrose (Dextrose 50%) STAT PRN IV Hypoglycemia 12/02/16 16:00 01/01/17 15:59 Dextrose/ Electrolytes (D5 0.45%NS W/ KCl 20mEq) 1,000 ml @ 45 mls/hr [id number] IV 12/02/16 15:30 01/01/17 15:29 12/10/16 01:25 Ertapenem 1 gm/ Sodium Chloride 110 ml @ 220 mls/hr Q24H IVPB 12/09/16 13:00 12/14/16 23:59 12/09/16 12:39 Heparin Sodium (Porcine) (Heparin 5000 units/ml) 5,000 units EVERY 12 HOURS SUBQ 12/02/16 21:00 01/01/17 20:59 12/10/16 09:03 Insulin Aspart (NovoLOG) Q6HR SUBQ 12/02/16 18:00 01/01/17 17:59 12/10/16 06:28 Pantoprazole 40 mg 40 mg DAILY IVP 12/08/16 09:00 01/07/17 08:59 12/10/16 09:03 Vancomycin HCl (Vanco rx to dose) 1 ea DAILY PRN MISC Per rx protocol 12/02/16 16:00 01/01/17 15:59 Vancomycin HCl/ Dextrose (Vancomycin/D5W) 275 ml @ 183.333 mls/hr Q12HR@0600,1800 IVPB 12/09/16 18:00 12/14/16 23:59 12/10/16 05:42 DEREJE CASTANO Dec 10, 2016 10:52
--- NOTE | 2016-12-10 11:33 | Diagnostic Imaging Report ---
Indication: Dyspnea Comparison: 12/08/16 A single view chest radiograph was obtained. Findings: Right chest tube again noted. No pneumothorax seen. Mild right basal atelectasis is present but appears improved. Heart size is normal. Impression: Improved right basal atelectasis with some residual noted.
[2016-12-10 12:00] VITALS: BP 127/67
--- NOTE | 2016-12-10 12:08 | Infectious Diseases Prog Note ---
"Assessment/Plan Assessment/Plan antibiotics : vancomycin iv, ertapenem A 1. pneumonia 2. loculated pleural effusion s/p thoracentesis s/p VATS | decortication 3. DM 4. respiratory failure 5. right arm cellulitis improving P 1. continue ertapenem, iv vancomycin 2. will follow up cultures Subjective ROS Limited/Unobtainable: Yes Allergies: Coded Allergies: No Known Allergies (Unverified , 11/23/16) Objective Vital Signs Last 24 Hour Vital Signs Date Time Temp Pulse Resp B/P Pulse Ox O2 Delivery O2 Flow Rate FiO2 12/10/16 11:04 86 19 35 12/10/16 09:21 87 11 35 12/10/16 09:02 100 126/84 12/10/16 08:00 97.7 100 28 126/84 100 Mechanical Ventilator 35 12/10/16 08:00 90 12/10/16 08:00 35 12/10/16 07:19 88 17 35 12/10/16 05:05 83 14 35 12/10/16 04:00 97.9 82 18 135/70 96 Mechanical Ventilator 12/10/16 04:00 35 12/10/16 04:00 81 12/10/16 03:14 72 12 35 12/10/16 01:09 81 12 35 12/10/16 00:00 98.6 95 20 121/76 99 Mechanical Ventilator 12/10/16 00:00 35 12/09/16 23:47 87 12/09/16 23:18 78 14 35 12/09/16 21:10 85 13 35 12/09/16 20:00 91 12/09/16 20:00 40 12/09/16 20:00 98.2 94 18 129/80 97 Mechanical Ventilator 35 12/09/16 19:00 83 14 35 12/09/16 16:40 88 12 35 12/09/16 16:00 98.2 93 21 116/70 98 Mechanical Ventilator 35 12/09/16 16:00 91 12/09/16 16:00 40 12/09/16 15:20 81 14 35 12/09/16 13:01 83 12 35 Height (Feet): 5 Height (Inches): 5.00 Weight (Pounds): 175 HEENT: status post trach Respiratory/Chest: lungs clear, other - right CT Cardiovascular: normal rate, regular rhythm, no gallop/murmur Abdomen: soft, non tender, other - GT Extremities: no edema Laboratory Tests Test 12/09/16 16:40 Vancomycin Level Trough 14.8 ug/mL (5.0-12.0) H HELDER ZAMORA Dec 10, 2016 12:08"
[2016-12-10] MEDS: Ertapenem 1 GM in NS 110 ML IVPB SCH (12:51)
--- NOTE | 2016-12-10 13:45 | General Progress Note ---
Progress Note Progress Note AfebVSS Chest tube with minimal drainage CXR no ptx Will place chest tube on water seal D/c tube in AM RUTH ELLISON M.D. Dec 10, 2016 13:45
[2016-12-10 16:00] VITALS: BP 120/80
[2016-12-10 20:00] VITALS: BP 125/75
--- NOTE | 2016-12-10 20:39 | General Progress Note ---
Assessment/Plan Problem List: (1) Respiratory failure with hypoxia ICD Codes: J96.91 - Respiratory failure, unspecified with hypoxia SNOMED: 88275474480128313 Qualifiers: Qualified Codes: J96.21 - Acute and chronic respiratory failure with hypoxia (2) Pneumonia ICD Codes: J18.9 - Pneumonia, unspecified organism SNOMED: 686008831 Qualifiers: Qualified Codes: J18.9 - Pneumonia, unspecified organism (3) UTI (urinary tract infection) ICD Codes: N39.0 - Urinary tract infection, site not specified SNOMED: 30466993 Qualifiers: Qualified Codes: N30.00 - Acute cystitis without hematuria (4) Severe sepsis ICD Codes: A41.9 - Sepsis, unspecified organism; R65.20 - Severe sepsis without septic shock SNOMED: 98459836 Status: stable, progressing Assessment/Plan vent resp rx gt feeds abx dvt prophylaxis with subcut heparin ct management for thoracic- ct to water seal. possible dc chest tube in am check labs in am Subjective ROS Limited/Unobtainable: Yes Constitutional: Reports: malaise, weakness HEENT: Reports: no symptoms Cardiovascular: Reports: no symptoms Respiratory: Reports: no symptoms Gastrointestinal/Abdominal: Reports: difficulty swallowing Genitourinary: Reports: no symptoms Neurologic/Psychiatric: Reports: pre-existing deficit, seizure Endocrine: Reports: no symptoms Hematologic/Lymphatic: Reports: anemia Allergies: Coded Allergies: No Known Allergies (Unverified , 11/23/16) All Systems: reviewed and negative except above Subjective s/p uncomplicated right sided vats. trach also replaced. no overnite events.events noted. no leak noted. less output. tolerating feeds. thoracic noted. remains poorly responsive and confused. Objective Last 24 Hour Vital Signs Date Time Temp Pulse Resp B/P Pulse Ox O2 Delivery O2 Flow Rate FiO2 12/10/16 20:00 97.4 78 15 125/75 100 Mechanical Ventilator 35 12/10/16 20:00 81 12/10/16 19:19 86 19 35 12/10/16 17:13 88 12 35 12/10/16 16:39 74 12/10/16 16:00 97.8 75 15 120/80 100 Mechanical Ventilator 35 12/10/16 16:00 35 12/10/16 14:59 85 13 35 12/10/16 13:17 82 12 35 12/10/16 12:07 35 12/10/16 12:00 81 12/10/16 12:00 98.1 87 14 127/67 100 Mechanical Ventilator 35 12/10/16 11:04 86 19 35 12/10/16 09:21 87 11 35 12/10/16 09:02 100 126/84 12/10/16 08:00 97.7 100 28 126/84 100 Mechanical Ventilator 35 12/10/16 08:00 90 12/10/16 08:00 35 12/10/16 07:19 88 17 35 12/10/16 05:05 83 14 35 12/10/16 04:00 97.9 82 18 135/70 96 Mechanical Ventilator 12/10/16 04:00 35 12/10/16 04:00 81 12/10/16 03:14 72 12 35 12/10/16 01:09 81 12 35 12/10/16 00:00 98.6 95 20 121/76 99 Mechanical Ventilator 12/10/16 00:00 35 12/09/16 23:47 87 12/09/16 23:18 78 14 35 12/09/16 21:10 85 13 35 Intake and Output 12/09/16 12/10/16 19:00 07:00 Intake Total 1898.3 ml 2051.633 ml Output Total 1300 ml 50 ml Balance 598.3 ml 2001.633 ml Intake Free Water 450 ml 450 ml IV Total 788.3 ml 941.633 ml Tube Feeding 660 ml 660 ml Output Urine Total 1300 ml Chest Tube Drainage Total 0 ml 50 ml # Bowel Movements 1 Height (Feet): 5 Height (Inches): 5.00 Weight (Pounds): 175 Objective General Appearance: WD/WN, confused Neck: supple Cardiovascular: regular rhythm Respiratory/Chest: right sided ct. no wheezes or rales Abdomen: normal bowel sounds, non tender, soft, no organomegaly Edema: no edema noted Arm (L), no edema noted Arm (R), no edema noted Leg (L), no edema noted Leg (R), no edema noted Pedal (L), no edema noted Pedal (R), no edema noted Generalized Skin: warm/dry DESMOND GARCIA Dec 10, 2016 20:39
[2016-12-11] VITALS: BP 113/59
[2016-12-11 04:00] VITALS: BP 113/72
[2016-12-11 04:42] LABS: BASOPHILS % (AUTO) 1.2 % (0.0-2.0); EOSINOPHILS % (AUTO) 2.4 % (0.0-3.0); MEAN CORPUSCULAR HEMOGLOBIN 35.4 PG (27.0-31.0); MEAN CORPUSCULAR VOLUME 104 FL (80-99); MONOCYTES % (AUTO) 8.8 % (1.0-10.0); NEUTROPHILS % (AUTO) 58.6 % (45.0-75.0); PLATELET COUNT 341 K/UL (150-450); RED BLOOD COUNT 3.27 M/UL (4.70-6.10); RED CELL DISTRIBUTION WIDTH 13.1 % (11.6-14.8); WHITE BLOOD COUNT 8.2 K/UL (4.8-10.8)
[2016-12-11] MEDS: Vancomycin 1.25 GM in D5W 275 ML IVPB SCH ×2 (05:28→17:40)
[2016-12-11 05:46] LABS: ANION GAP 15 (5-15); CALCIUM 8.8 mg/dL (8.6-10.2); CARBON DIOXIDE 27 mEQ/L (20-30); CHLORIDE 101 mEQ/L (98-107); CREATININE 0.6 mg/dL (0.7-1.2); GLOMERULAR FILTRATION RATE > 60 mL/min (>60); HEMOLYSIS 5; SODIUM 143 mEQ/L (135-145)
[2016-12-11] MEDS: NovoLOG Insulin Flexpen SUBQ SCH ×3 (06:10→17:41)
--- NOTE | 2016-12-11 07:55 | General Progress Note ---
Assessment/Plan Problem List: (1) Respiratory failure with hypoxia ICD Codes: J96.91 - Respiratory failure, unspecified with hypoxia SNOMED: [id number] Qualifiers: Qualified Codes: J96.21 - Acute and chronic respiratory failure with hypoxia (2) Pneumonia ICD Codes: J18.9 - Pneumonia, unspecified organism SNOMED: 783523145 Qualifiers: Qualified Codes: J18.9 - Pneumonia, unspecified organism (3) UTI (urinary tract infection) ICD Codes: N39.0 - Urinary tract infection, site not specified SNOMED: 28070934 Qualifiers: Qualified Codes: N30.00 - Acute cystitis without hematuria (4) Severe sepsis ICD Codes: A41.9 - Sepsis, unspecified organism; R65.20 - Severe sepsis without septic shock SNOMED: 33122182 Status: stable, progressing Assessment/Plan vent resp rx gt feeds abx dvt prophylaxix ct management for thoracic- ct to water seal. possible dc chest tube in am dc ivf check labs in am Subjective ROS Limited/Unobtainable: No Constitutional: Reports: malaise, weakness HEENT: Reports: no symptoms Cardiovascular: Reports: no symptoms Respiratory: Reports: no symptoms Gastrointestinal/Abdominal: Reports: difficulty swallowing Genitourinary: Reports: no symptoms Neurologic/Psychiatric: Reports: pre-existing deficit Endocrine: Reports: no symptoms Hematologic/Lymphatic: Reports: anemia Allergies: Coded Allergies: No Known Allergies (Unverified , 11/23/16) All Systems: reviewed and negative except above Subjective s/p uncomplicated right sided vats. trach also replaced. no overnite events.events noted. no leak noted. less output. tolerating feeds. on ivf. k trending up. thoracic noted. remains poorly responsive and confused. Objective Last 24 Hour Vital Signs Date Time Temp Pulse Resp B/P Pulse Ox O2 Delivery O2 Flow Rate FiO2 12/11/16 07:13 86 24 35 12/11/16 05:15 83 13 35 12/11/16 04:00 98.1 82 14 113/72 100 Mechanical Ventilator 35 12/11/16 04:00 85 12/11/16 04:00 35 12/11/16 03:18 86 16 35 12/11/16 01:14 85 15 35 12/11/16 00:00 35 12/11/16 00:00 80 12/11/16 00:00 98.2 81 16 113/59 100 Mechanical Ventilator 35 12/10/16 22:58 77 15 35 12/10/16 21:04 79 18 35 12/10/16 20:00 97.4 78 15 125/75 100 Mechanical Ventilator 35 12/10/16 20:00 81 12/10/16 20:00 35 12/10/16 19:19 86 19 35 12/10/16 17:13 88 12 35 12/10/16 16:39 74 12/10/16 16:00 97.8 75 15 120/80 100 Mechanical Ventilator 35 12/10/16 16:00 35 12/10/16 14:59 85 13 35 12/10/16 13:17 82 12 35 12/10/16 12:07 35 12/10/16 12:00 81 12/10/16 12:00 98.1 87 14 127/67 100 Mechanical Ventilator 35 12/10/16 11:04 86 19 35 12/10/16 09:21 87 11 35 12/10/16 09:02 100 126/84 12/10/16 08:00 97.7 100 28 126/84 100 Mechanical Ventilator 35 12/10/16 08:00 90 12/10/16 08:00 35 Intake and Output 12/10/16 12/11/16 18:59 06:59 Intake Total 2016.633 ml 1149.3 ml Output Total 920 ml 100 ml Balance 1096.633 ml 1049.3 ml Intake Free Water 450 ml 300 ml IV Total 906.633 ml 464.3 ml Tube Feeding 660 ml 385 ml Output Urine Total 900 ml 100 ml Chest Tube Drainage Total 20 ml 0 ml Laboratory Tests 12/11/16 03:50: White Blood Count 8.2, Red Blood Count 3.27L, Hemoglobin 11.6L, Hematocrit 34.1L , Mean Corpuscular Volume 104H, Mean Corpuscular Hemoglobin 35.4H, Mean Corpuscular Hemoglobin Concent 34.0, Red Cell Distribution Width 13.1, Platelet Count 341, Mean Platelet Volume 7.0, Neutrophils (%) (Auto) 58.6, Lymphocytes (% ) (Auto) 29.0, Monocytes (%) (Auto) 8.8, Eosinophils (%) (Auto) 2.4, Basophils ( %) (Auto) 1.2, Sodium Level 143, Potassium Level 5.0H, Chloride Level 101, Carbon Dioxide Level 27, Anion Gap 15, Blood Urea Nitrogen 7, Creatinine 0.6L, Estimat Glomerular Filtration Rate > 60, Glucose Level 117H, Calcium Level 8.8 Height (Feet): 5 Height (Inches): 5.00 Weight (Pounds): 175 Objective General Appearance: WD/WN, confused Neck: supple Cardiovascular: regular rhythm Respiratory/Chest: right sided ct. no wheezes or rales Abdomen: normal bowel sounds, non tender, soft, no organomegaly Edema: no edema noted Arm (L), no edema noted Arm (R), no edema noted Leg (L), no edema noted Leg (R), no edema noted Pedal (L), no edema noted Pedal (R), no edema noted Generalized Skin: warm/dry DESMOND GARCIA Dec 11, 2016 07:55
[2016-12-11 08:00] VITALS: BP 118/75
[2016-12-11] MEDS: Artificial Tears 1.4% Op Soln BOTH EYES SCH ×2 (08:45→21:33)
[2016-12-11] MEDS: Pantoprazole Inj IVP SCH (08:46)
[2016-12-11] MEDS: Heparin 5000 units/ml inj SUBQ SCH ×2 (08:47→21:34)
--- NOTE | 2016-12-11 09:56 | Pulmonology Progress Note ---
Assessment/Plan Assessment/Plan IMPRESSIONS: 1. Pneumonia. 2. Respiratory failure 3. Hypertension. 4. Sinus tachycardia without fevers. 5. Possible sepsis. 6. Lactic acidemia. 7. History of seizures. 8. History of chronic encephalopathy. 9. hypernatremia 10. pleural effusion s/p decortication 11. trach 12. abnormal chest xr PLAN care noted and reviewed improved aeration right lung seems improved ventilator for now and positive pressure for now try trach collar labs noted and will reorder monitor lytes IV antibiotics noted; ID reviewed respiratory care as is hope to dc chest tube remains guarded all reviewed and discussed monitor for change and hope to dc once CT further wean after dc impression, plan, and exam edited and reviewed in detail care discussed with RN Subjective ROS Limited/Unobtainable: Yes Allergies: Coded Allergies: No Known Allergies (Unverified , 11/23/16) Subjective on ventilator poor LOC in [facility] cxr improved d/w thoracic Objective Last 24 Hour Vital Signs Date Time Temp Pulse Resp B/P Pulse Ox O2 Delivery O2 Flow Rate FiO2 12/11/16 08:46 86 118/75 12/11/16 07:13 86 24 35 12/11/16 05:15 83 13 35 12/11/16 04:00 98.1 82 14 113/72 100 Mechanical Ventilator 35 12/11/16 04:00 85 12/11/16 04:00 35 12/11/16 03:18 86 16 35 12/11/16 01:14 85 15 35 12/11/16 00:00 35 12/11/16 00:00 80 12/11/16 00:00 98.2 81 16 113/59 100 Mechanical Ventilator 35 12/10/16 22:58 77 15 35 12/10/16 21:04 79 18 35 12/10/16 20:00 97.4 78 15 125/75 100 Mechanical Ventilator 35 12/10/16 20:00 81 12/10/16 20:00 35 12/10/16 19:19 86 19 35 12/10/16 17:13 88 12 35 12/10/16 16:39 74 12/10/16 16:00 97.8 75 15 120/80 100 Mechanical Ventilator 35 12/10/16 16:00 35 12/10/16 14:59 85 13 35 12/10/16 13:17 82 12 35 12/10/16 12:07 35 12/10/16 12:00 81 12/10/16 12:00 98.1 87 14 127/67 100 Mechanical Ventilator 35 12/10/16 11:04 86 19 35 Intake and Output 12/10/16 12/11/16 19:00 07:00 Intake Total 1683.3 ml 1529.3 ml Output Total 920 ml 925 ml Balance 763.3 ml 604.3 ml Intake Free Water 300 ml 450 ml IV Total 723.3 ml 419.3 ml Tube Feeding 660 ml 660 ml Output Urine Total 900 ml 900 ml Chest Tube Drainage Total 20 ml 25 ml Objective GENERAL: The patient is a well-developed male, chronically ill, chronically debilitated. reduced LOC HEENT: Normocephalic and atraumatic. Pupils are sluggish. NECK: Supple. LUNGS: reduced rhonchi right. Moderate air entry. trach in place; CT in place CARDIAC: S1 and S2. RRR The patient without murmurs, rubs, or gallops. ABDOMEN: Otherwise soft, nontender, and nondistended. GT EXTREMITIES: No cyanosis, clubbing, or edema. NEUROLOGIC: Grossly nonfocal. withdrawn reviewed and edited lines noted and reviewed Microbiology Date/Time Source Procedure Growth Status 12/09/16 05:10 Sputum Gram Stain - Final Resulted 12/09/16 05:10 Sputum Sputum Culture - Preliminary Resulted Laboratory Tests 12/11/16 03:50: White Blood Count 8.2, Red Blood Count 3.27L, Hemoglobin 11.6L, Hematocrit 34.1L , Mean Corpuscular Volume 104H, Mean Corpuscular Hemoglobin 35.4H, Mean Corpuscular Hemoglobin Concent 34.0, Red Cell Distribution Width 13.1, Platelet Count 341, Mean Platelet Volume 7.0, Neutrophils (%) (Auto) 58.6, Lymphocytes (% ) (Auto) 29.0, Monocytes (%) (Auto) 8.8, Eosinophils (%) (Auto) 2.4, Basophils ( %) (Auto) 1.2, Sodium Level 143, Potassium Level 5.0H, Chloride Level 101, Carbon Dioxide Level 27, Anion Gap 15, Blood Urea Nitrogen 7, Creatinine 0.6L, Estimat Glomerular Filtration Rate > 60, Glucose Level 117H, Calcium Level 8.8 Current Medications Medications (Trade) Dose Ordered Sig/Pierre Route PRN Reason Start Time Stop Time Status Last Admin Dose Admin Acetaminophen (Tylenol) 650 mg Q4H PRN ORAL Mild Pain/Temp > 100.5 12/02/16 16:00 01/01/17 15:59 Al Hydroxide/Mg Hydroxide (Mylanta) 30 ml Q4H PRN ORAL Per rx protocol 12/02/16 17:00 01/01/17 16:59 Amlodipine Besylate (Norvasc) 2.5 mg DAILY ORAL 12/03/16 09:00 01/02/17 08:59 12/11/16 08:46 Artificial Tears (Akwa-Tears) 2 drop Q12HR BOTH EYES 12/02/16 21:00 01/01/17 20:59 12/11/16 08:45 Dextrose (Dextrose 50%) STAT PRN IV Hypoglycemia 12/02/16 16:00 01/01/17 15:59 Ertapenem/Sodium Chloride (INVanz/Sodium Chloride) 55 ml @ 110 mls/hr Q24H IVPB 12/11/16 13:00 12/13/16 12:59 Heparin Sodium (Porcine) (Heparin 5000 units/ml) 5,000 units EVERY 12 HOURS SUBQ 12/02/16 21:00 01/01/17 20:59 12/11/16 08:47 Insulin Aspart (NovoLOG) Q6HR SUBQ 12/02/16 18:00 01/01/17 17:59 12/11/16 06:10 Pantoprazole 40 mg 40 mg DAILY IVP 12/08/16 09:00 01/07/17 08:59 12/11/16 08:46 Vancomycin HCl (Vanco rx to dose) 1 ea DAILY PRN MISC Per rx protocol 12/02/16 16:00 01/01/17 15:59 Vancomycin HCl 1.25 gm/Dextrose 275 ml @ 183.333 mls/hr Q12HR@0600,1800 IVPB 12/09/16 18:00 12/14/16 23:59 12/11/16 05:28 DEREJE CASTANO Dec 11, 2016 09:56
--- NOTE | 2016-12-11 11:17 | General Progress Note ---
Progress Note Progress Note AfebVSS CXR no ptx Will d/c chest tube today RUTH ELLISON M.D. Dec 11, 2016 11:17
[2016-12-11 11:53] LABS: ABG ALLEN TEST POSITIVE; ABG BASE EXCESS 2.4; ABG PCO2 34.1 mmHg (35.0-45.0)
--- NOTE | 2016-12-11 11:57 | Diagnostic Imaging Report ---
Indication: Dyspnea. Status post chest tube removal. Comparison: Earlier the same day A single view chest radiograph was obtained. Findings: Right chest tube was removed. There is no pneumothorax identified. Residual pleural thickening or effusion may be present. Partial atelectasis of the right upper lobe may be present. These findings are unchanged. Heart size is stable. Impression: Status post right chest tube removal. No change otherwise. No pneumothorax identified.
[2016-12-11 12:00] VITALS: BP 131/82
[2016-12-11] MEDS ORDERED: Ertapenem 1 GM in NS 55 ML IVPB SCH (13:00)
--- NOTE | 2016-12-11 13:29 | Infectious Diseases Prog Note ---
Assessment/Plan Assessment/Plan A: Pleural effusion Pneumonia Elevated transaminase resolved Encephalopathy Pleural effusion, s/p decortication R arm cellulitis DM Cholelithiasis P: continue Ertapenem & Vancomycin Subjective ROS Limited/Unobtainable: Yes Allergies: Coded Allergies: No Known Allergies (Unverified , 11/23/16) Objective Vital Signs Last 24 Hour Vital Signs Date Time Temp Pulse Resp B/P Pulse Ox O2 Delivery O2 Flow Rate FiO2 12/11/16 13:19 100 T-piece 40 12/11/16 11:54 T-piece 40 12/11/16 11:10 100 T-piece 40 12/11/16 09:16 96 24 35 12/11/16 08:46 86 118/75 12/11/16 08:00 98.2 86 17 118/75 100 Mechanical Ventilator 35 12/11/16 08:00 35 12/11/16 08:00 82 12/11/16 07:13 86 24 35 12/11/16 05:15 83 13 35 12/11/16 04:00 98.1 82 14 113/72 100 Mechanical Ventilator 35 12/11/16 04:00 85 12/11/16 04:00 35 12/11/16 03:18 86 16 35 12/11/16 01:14 85 15 35 12/11/16 00:00 35 12/11/16 00:00 80 12/11/16 00:00 98.2 81 16 113/59 100 Mechanical Ventilator 35 12/10/16 22:58 77 15 35 12/10/16 21:04 79 18 35 12/10/16 20:00 97.4 78 15 125/75 100 Mechanical Ventilator 35 12/10/16 20:00 81 12/10/16 20:00 35 12/10/16 19:19 86 19 35 12/10/16 17:13 88 12 35 12/10/16 16:39 74 12/10/16 16:00 97.8 75 15 120/80 100 Mechanical Ventilator 35 12/10/16 16:00 35 12/10/16 14:59 85 13 35 Height (Feet): 5 Height (Inches): 5.00 Weight (Pounds): 175 General Appearance: no acute distress HEENT: status post trach Respiratory/Chest: decreased breath sounds, other - in right lung, on T bar Cardiovascular: normal rate Abdomen: soft, non tender, other - GT feeding Neurologic/Psychiatric: unresponsiveness Microbiology Date/Time Source Procedure Growth Status 12/09/16 05:10 Sputum Gram Stain - Final Resulted 12/09/16 05:10 Sputum Sputum Culture - Preliminary Resulted Laboratory Tests Test 12/11/16 03:50 12/11/16 11:38 White Blood Count 8.2 K/UL (4.8-10.8) Red Blood Count 3.27 M/UL (4.70-6.10) L Hemoglobin 11.6 G/DL (14.2-18.0) L Hematocrit 34.1 % (42.0-52.0) L Mean Corpuscular Volume 104 FL (80-99) H Mean Corpuscular Hemoglobin 35.4 PG (27.0-31.0) H Mean Corpuscular Hemoglobin Concent 34.0 G/DL (32.0-36.0) Red Cell Distribution Width 13.1 % (11.6-14.8) Platelet Count 341 K/UL (150-450) Mean Platelet Volume 7.0 FL (6.5-10.1) Neutrophils (%) (Auto) 58.6 % (45.0-75.0) Lymphocytes (%) (Auto) 29.0 % (20.0-45.0) Monocytes (%) (Auto) 8.8 % (1.0-10.0) Eosinophils (%) (Auto) 2.4 % (0.0-3.0) Basophils (%) (Auto) 1.2 % (0.0-2.0) Sodium Level 143 mEQ/L (135-145) Potassium Level 5.0 mEQ/L (3.4-4.9) H Chloride Level 101 mEQ/L (98-107) Carbon Dioxide Level 27 mEQ/L (20-30) Anion Gap 15 (5-15) Blood Urea Nitrogen 7 mg/dL (7-23) Creatinine 0.6 mg/dL (0.7-1.2) L Estimat Glomerular Filtration Rate > 60 mL/min (>60) Glucose Level 117 mg/dL (74-106) H Calcium Level 8.8 mg/dL (8.6-10.2) Arterial Blood pH 7.490 (7.350-7.450) Arterial Blood Partial Pressure CO2 34.1 mmHg (35.0-45.0) L Arterial Blood Partial Pressure O2 99.8 mmHg (75.0-100.0) Arterial Blood HCO3 25.4 mmol/L (22.0-26.0) Arterial Blood Oxygen Saturation 97.7 % (92.0-98.0) Arterial Blood Base Excess 2.4 Dread Test Positive Current Medications Medications (Trade) Dose Ordered Sig/Pierre Route PRN Reason Start Time Stop Time Status Last Admin Dose Admin Acetaminophen (Tylenol) 650 mg Q4H PRN ORAL Mild Pain/Temp > 100.5 12/02/16 16:00 01/01/17 15:59 Al Hydroxide/Mg Hydroxide (Mylanta) 30 ml Q4H PRN ORAL Per rx protocol 12/02/16 17:00 01/01/17 16:59 Amlodipine Besylate (Norvasc) 2.5 mg DAILY ORAL 12/03/16 09:00 01/02/17 08:59 12/11/16 08:46 Artificial Tears (Akwa-Tears) 2 drop Q12HR BOTH EYES 12/02/16 21:00 01/01/17 20:59 12/11/16 08:45 Dextrose (Dextrose 50%) STAT PRN IV Hypoglycemia 12/02/16 16:00 01/01/17 15:59 Ertapenem/Sodium Chloride (INVanz/Sodium Chloride) 55 ml @ 110 mls/hr Q24H IVPB 12/11/16 13:00 12/13/16 12:59 12/11/16 12:37 Heparin Sodium (Porcine) (Heparin 5000 units/ml) 5,000 units EVERY 12 HOURS SUBQ 12/02/16 21:00 01/01/17 20:59 12/11/16 08:47 Insulin Aspart (NovoLOG) Q6HR SUBQ 12/02/16 18:00 01/01/17 17:59 12/11/16 12:36 Pantoprazole 40 mg 40 mg DAILY IVP 12/08/16 09:00 01/07/17 08:59 12/11/16 08:46 Vancomycin HCl (Vanco rx to dose) 1 ea DAILY PRN MISC Per rx protocol 12/02/16 16:00 01/01/17 15:59 Vancomycin HCl 1.25 gm/Dextrose 275 ml @ 183.333 mls/hr Q12HR@0600,1800 IVPB 12/09/16 18:00 12/14/16 23:59 12/11/16 05:28 REINALDO HUTCHINSON Dec 11, 2016 13:29
[2016-12-11 16:08] VITALS: BP 131/82
[2016-12-11 20:00] VITALS: BP 127/74
[2016-12-12] VITALS: BP 119/71
[2016-12-12 04:00] VITALS: BP 138/74
[2016-12-12] MEDS: Vancomycin 1.25 GM in D5W 275 ML IVPB SCH (05:31)
[2016-12-12] MEDS: NovoLOG Insulin Flexpen SUBQ SCH ×3 (05:59→11:31)
[2016-12-12 07:19] LABS: ALANINE AMINOTRANSFERASE 18 U/L (3-41); ALBUMIN/GLOBULIN RATIO 0.5 (1.0-2.7); ANION GAP 15 (5-15); ASPARTATE AMINO TRANSFERASE 23 U/L (5-40); CALCIUM 8.7 mg/dL (8.6-10.2); CARBON DIOXIDE 26 mEQ/L (20-30); CHLORIDE 97 mEQ/L (98-107); CREATININE 0.6 mg/dL (0.7-1.2); GLOMERULAR FILTRATION RATE > 60 mL/min (>60); HEMOLYSIS 8; POTASSIUM 5.1 mEQ/L (3.4-4.9); SODIUM 138 mEQ/L (135-145); TOTAL PROTEIN 6.9 g/dL (6.6-8.7)
[2016-12-12 08:00] VITALS: BP 131/81
--- NOTE | 2016-12-12 08:39 | Diagnostic Imaging Report ---
Indication: Pneumothorax Comparison: 12/10/2016 A single view chest radiograph was obtained. Findings: There is a possible tiny right apical pneumothorax. This is questionable. There is a right chest tube noted. Heart size is stable. Right basilar atelectasis is stable. Impression: Questionable tiny right apical pneumothorax.
[2016-12-12] MEDS: Pantoprazole Inj IVP SCH (09:15)
[2016-12-12] MEDS: Artificial Tears 1.4% Op Soln BOTH EYES SCH (09:18)
[2016-12-12] MEDS: Heparin 5000 units/ml inj SUBQ SCH (09:18)
--- NOTE | 2016-12-12 09:18 | Pulmonology Progress Note ---
Assessment/Plan Assessment/Plan IMPRESSIONS: 1. Pneumonia. 2. Respiratory failure 3. Hypertension. 4. Sinus tachycardia without fevers. 5. Possible sepsis. 6. Lactic acidemia. 7. History of seizures. 8. History of chronic encephalopathy. 9. hypernatremia 10. pleural effusion s/p decortication 11. trach 12. abnormal chest xr PLAN care noted and reviewed stable aeration right lung seems improved ventilator off labs noted and will reorder monitor lytes ID reviewed respiratory care as is CT out remains guarded all reviewed and discussed dc to snf impression, plan, and exam edited and reviewed in detail care discussed with RN Subjective ROS Limited/Unobtainable: Yes Allergies: Coded Allergies: No Known Allergies (Unverified , 11/23/16) Subjective off ventilator poor LOC in [facility] cxr improved d/w thoracic CT out Objective Last 24 Hour Vital Signs Date Time Temp Pulse Resp B/P Pulse Ox O2 Delivery O2 Flow Rate FiO2 12/12/16 06:54 T-piece 10.0 40 12/12/16 06:54 100 T-piece 10.0 40 12/12/16 04:00 96.8 84 22 138/74 100 Trach Collar 40 12/12/16 04:00 82 12/12/16 01:28 T-piece 40 12/12/16 01:27 100 T-piece 40 12/12/16 00:00 97.0 80 20 119/71 100 Trach Collar 40 12/11/16 23:35 77 12/11/16 20:00 98.9 82 18 127/74 100 Trach Collar 40 12/11/16 20:00 79 12/11/16 19:37 T-piece 40 12/11/16 19:36 100 T-piece 40 12/11/16 16:08 97.9 86 19 131/82 100 Trach Collar 40 12/11/16 16:00 82 12/11/16 13:19 100 T-piece 40 12/11/16 12:00 92 12/11/16 12:00 98.2 93 18 131/82 100 Mechanical Ventilator 35 12/11/16 11:54 T-piece 40 12/11/16 11:10 100 T-piece 40 Intake and Output 12/11/16 12/12/16 18:59 06:59 Intake Total 1348.3 ml 946.7 ml Output Total 825 ml 2100 ml Balance 523.3 ml -1153.3 ml Intake Free Water 450 ml 150 ml IV Total 238.3 ml 91.7 ml Tube Feeding 660 ml 605 ml Other 100 ml Output Urine Total 825 ml 2100 ml # Bowel Movements 1 Objective GENERAL: The patient is a well-developed male, chronically ill, chronically debilitated. reduced LOC HEENT: Normocephalic and atraumatic. Pupils are sluggish. NECK: Supple. LUNGS: Moderate air entry. trach in place; CT out; adequate air entry CARDIAC: S1 and S2. RRR The patient without murmurs, rubs, or gallops. ABDOMEN: Otherwise soft, nontender, and nondistended. GT EXTREMITIES: No cyanosis, clubbing, or edema. NEUROLOGIC: Grossly nonfocal. withdrawn reviewed and edited lines noted and reviewed Laboratory Tests 12/11/16 11:38: Arterial Blood pH 7.490H, Arterial Blood Partial Pressure CO2 34.1L, Arterial Blood Partial Pressure O2 99.8, Arterial Blood HCO3 25.4, Arterial Blood Oxygen Saturation 97.7, Arterial Blood Base Excess 2.4, Dread Test Positive 12/12/16 05:30: Sodium Level 138, Potassium Level 5.1H, Chloride Level 97L, Carbon Dioxide Level 26, Anion Gap 15, Blood Urea Nitrogen 9, Creatinine 0.6L, Estimat Glomerular Filtration Rate > 60, Glucose Level 135H, Calcium Level 8.7, Total Bilirubin 0.3, Aspartate Amino Transf (AST/SGOT) 23, Alanine Aminotransferase ( ALT/SGPT) 18, Alkaline Phosphatase 122, Total Protein 6.9, Albumin 2.5L, Globulin 4.4, Albumin/Globulin Ratio 0.5L Current Medications Medications (Trade) Dose Ordered Sig/Pierre Route PRN Reason Start Time Stop Time Status Last Admin Dose Admin Acetaminophen (Tylenol) 650 mg Q4H PRN ORAL Mild Pain/Temp > 100.5 12/02/16 16:00 01/01/17 15:59 12/11/16 21:35 Al Hydroxide/Mg Hydroxide (Mylanta) 30 ml Q4H PRN ORAL Per rx protocol 12/02/16 17:00 01/01/17 16:59 Amlodipine Besylate (Norvasc) 2.5 mg DAILY ORAL 12/03/16 09:00 01/02/17 08:59 12/11/16 08:46 Artificial Tears (Akwa-Tears) 2 drop Q12HR BOTH EYES 12/02/16 21:00 01/01/17 20:59 12/11/16 21:33 Dextrose (Dextrose 50%) STAT PRN IV Hypoglycemia 12/02/16 16:00 01/01/17 15:59 Ertapenem/Sodium Chloride (INVanz/Sodium Chloride) 55 ml @ 110 mls/hr Q24H IVPB 12/11/16 13:00 12/13/16 12:59 12/11/16 12:37 Heparin Sodium (Porcine) (Heparin 5000 units/ml) 5,000 units EVERY 12 HOURS SUBQ 12/02/16 21:00 01/01/17 20:59 12/11/16 21:34 Insulin Aspart (NovoLOG) Q6HR SUBQ 12/02/16 18:00 01/01/17 17:59 12/12/16 05:59 Pantoprazole 40 mg 40 mg DAILY IVP 12/08/16 09:00 01/07/17 08:59 12/11/16 08:46 Vancomycin HCl (Vanco rx to dose) 1 ea DAILY PRN MISC Per rx protocol 12/02/16 16:00 01/01/17 15:59 Vancomycin HCl 1.25 gm/Dextrose 275 ml @ 183.333 mls/hr Q12HR@0600,1800 IVPB 12/09/16 18:00 12/14/16 23:59 12/12/16 05:31 DEREJE CASTANO Dec 12, 2016 09:18
--- NOTE | 2016-12-12 09:55 | Infectious Diseases Prog Note ---
Assessment/Plan Assessment/Plan A: Pleural effusion Pneumonia Elevated transaminase resolved Encephalopathy Pleural effusion, s/p decortication R arm cellulitis DM Cholelithiasis P: discontinue Ertapenem & Vancomycin start on Tobramycin inhaler Subjective ROS Limited/Unobtainable: Yes Allergies: Coded Allergies: No Known Allergies (Unverified , 11/23/16) Objective Vital Signs Last 24 Hour Vital Signs Date Time Temp Pulse Resp B/P Pulse Ox O2 Delivery O2 Flow Rate FiO2 12/12/16 09:15 88 136/72 12/12/16 08:00 97.9 88 19 131/81 100 Trach Collar 40 12/12/16 06:54 T-piece 10.0 40 12/12/16 06:54 100 T-piece 10.0 40 12/12/16 04:00 96.8 84 22 138/74 100 Trach Collar 40 12/12/16 04:00 82 12/12/16 01:28 T-piece 40 12/12/16 01:27 100 T-piece 40 12/12/16 00:00 97.0 80 20 119/71 100 Trach Collar 40 12/11/16 23:35 77 12/11/16 20:00 98.9 82 18 127/74 100 Trach Collar 40 12/11/16 20:00 79 12/11/16 19:37 T-piece 40 12/11/16 19:36 100 T-piece 40 12/11/16 16:08 97.9 86 19 131/82 100 Trach Collar 40 12/11/16 16:00 82 12/11/16 13:19 100 T-piece 40 12/11/16 12:00 92 12/11/16 12:00 98.2 93 18 131/82 100 Mechanical Ventilator 35 12/11/16 11:54 T-piece 40 12/11/16 11:10 100 T-piece 40 Height (Feet): 5 Height (Inches): 5.00 Weight (Pounds): 175 General Appearance: no acute distress HEENT: status post trach Respiratory/Chest: other - decreased on R lung, on T bar Cardiovascular: normal rate Abdomen: soft, non tender, other - GT feeding Extremities: no edema Neurologic/Psychiatric: disoriented, aphasia, other - moves R arm Laboratory Tests Test 12/11/16 11:38 12/12/16 05:30 Arterial Blood pH 7.490 (7.350-7.450) Arterial Blood Partial Pressure CO2 34.1 mmHg (35.0-45.0) L Arterial Blood Partial Pressure O2 99.8 mmHg (75.0-100.0) Arterial Blood HCO3 25.4 mmol/L (22.0-26.0) Arterial Blood Oxygen Saturation 97.7 % (92.0-98.0) Arterial Blood Base Excess 2.4 Dread Test Positive Sodium Level 138 mEQ/L (135-145) Potassium Level 5.1 mEQ/L (3.4-4.9) H Chloride Level 97 mEQ/L (98-107) L Carbon Dioxide Level 26 mEQ/L (20-30) Anion Gap 15 (5-15) Blood Urea Nitrogen 9 mg/dL (7-23) Creatinine 0.6 mg/dL (0.7-1.2) L Estimat Glomerular Filtration Rate > 60 mL/min (>60) Glucose Level 135 mg/dL (74-106) H Calcium Level 8.7 mg/dL (8.6-10.2) Total Bilirubin 0.3 mg/dL (0.0-1.2) Aspartate Amino Transf (AST/SGOT) 23 U/L (5-40) Alanine Aminotransferase (ALT/SGPT) 18 U/L (3-41) Alkaline Phosphatase 122 U/L (40-129) Total Protein 6.9 g/dL (6.6-8.7) Albumin 2.5 g/dL (3.5-5.2) L Globulin 4.4 g/dL Albumin/Globulin Ratio 0.5 (1.0-2.7) L Current Medications Medications (Trade) Dose Ordered Sig/Pierre Route PRN Reason Start Time Stop Time Status Last Admin Dose Admin Acetaminophen (Tylenol) 650 mg Q4H PRN ORAL Mild Pain/Temp > 100.5 12/02/16 16:00 01/01/17 15:59 12/11/16 21:35 Al Hydroxide/Mg Hydroxide (Mylanta) 30 ml Q4H PRN ORAL Per rx protocol 12/02/16 17:00 01/01/17 16:59 Amlodipine Besylate (Norvasc) 2.5 mg DAILY ORAL 12/03/16 09:00 01/02/17 08:59 12/12/16 09:15 Artificial Tears (Akwa-Tears) 2 drop Q12HR BOTH EYES 12/02/16 21:00 01/01/17 20:59 12/12/16 09:18 Dextrose (Dextrose 50%) STAT PRN IV Hypoglycemia 12/02/16 16:00 01/01/17 15:59 Ertapenem/Sodium Chloride (INVanz/Sodium Chloride) 55 ml @ 110 mls/hr Q24H IVPB 12/11/16 13:00 12/13/16 12:59 12/11/16 12:37 Heparin Sodium (Porcine) (Heparin 5000 units/ml) 5,000 units EVERY 12 HOURS SUBQ 12/02/16 21:00 01/01/17 20:59 12/12/16 09:18 Insulin Aspart (NovoLOG) Q6HR SUBQ 12/02/16 18:00 01/01/17 17:59 12/12/16 05:59 Pantoprazole 40 mg 40 mg DAILY IVP 12/08/16 09:00 01/07/17 08:59 12/12/16 09:15 Vancomycin HCl (Vanco rx to dose) 1 ea DAILY PRN MISC Per rx protocol 12/02/16 16:00 01/01/17 15:59 Vancomycin HCl 1.25 gm/Dextrose 275 ml @ 183.333 mls/hr Q12HR@0600,1800 IVPB 12/09/16 18:00 12/14/16 23:59 12/12/16 05:31 REINALDO HUTCHINSON Dec 12, 2016 09:55
[2016-12-12] MEDS ORDERED: NS 275ml ONE (10:53)
[2016-12-12] MEDS ORDERED: Tobramycin for inhalation INH SCH (11:00)
[2016-12-12 12:00] VITALS: BP 133/74
--- NOTE | 2016-12-12 12:17 | Diagnostic Imaging Report ---
Indications: DYSPNEA Technique: Portable AP chest Findings: Comparison: 12/11/16 Right upper lobe consolidation and volume loss persists, decreased. Overall right lung volume remains decreased. Increased interstitial markings persist throughout the right lung. Right pleural effusion persists, unchanged. Linear density has developed in the left midlung. Density persists in both lower lung. No other change. IMPRESSION: Partial reexpansion of previously collapsed right upper lobe. Increase in left lung subsegmental atelectasis Other stable findings as described
--- NOTE | 2016-12-13 07:50 | Discharge Summary ---
Discharge Summary Hospital Course Date of Admission Nov 23, 2016 at 22:45 Date of Discharge Dec 12, 2016 at 12:45 Admitting Diagnosis sepsis, pneumonia HPI Javad Chanel is a 66 year old male who was admitted on Nov 23, 2016 at 22:45 for Sepsis,Pneumonia Hospital Course dc summary#[id number] Discharge Medications New Medications: Tobramycin In 0.225% Nacl (Jus 300 Mg/5 Ml Solution) 300 Mg/5 Ml Ampul.neb 300 MG IH EVERY 12 HOURS, #10 EA Continued Medications: Albuterol Sulfate (Ventolin Hfa) 18 Gm Hfa.aer.ad 1 PUFF INH EVERY 6 HOURS, #18 GM 0 Refills Amlodipine Besylate (Norvasc) 2.5 Mg Tablet 2.5 MG ORAL DAILY, TAB Carbamazepine (Carbamazepine) 100 Mg/5 Ml Oral.susp #450 Polyvinyl Alcohol (Artificial Tears) 15 Ml Drops 15 ML OP, ML Discharge Condition Upon Discharge: stable Discharge Disposition Patient was discharged to SNF/Subacute Facility(03) Discharge Diagnoses: Discharge Instructions Discharge Instructions Special Instructions I have been assigned to complete a D/C Summary on this account. I was not involved in the patient management Daniel MorrisonBeatrice ruiz NP Dec 13, 2016 07:50
--- NOTE | 2016-12-14 00:28 | Discharge Summary 2 SIG ---
DATE OF ADMISSION: 11/23/2016 DATE OF DISCHARGE: 12/12/2016 REASON FOR ADMISSION: A 66-year-old male with multiple medical problems including chronic respiratory failure with tracheostomy, hypertension, traumatic brain injury, seizure disorder, diabetes, and hypertension, presented with shortness of breath, fever and respiratory distress. The patient received breathing [place] [facility] was sent to emergency room for further evaluation and management. The patient unable to provide any information due to chronic encephalopathy.. In the emergency room, patient had a fever of 105, was hypoxic and tachycardic , 124. EKG revealed sinus tachycardia, no ST changes, no ectopy. No premature ventricular contraction. laboratory workup revealed elevated lactic acid, negative troponin negative. Initially, no leukocytosis. Chest x-ray revealed right-sided pleural thickening versus effusion and likely underlying consolidation. The patient was placed on 100% nonrebreathing mask. Blood pressure was stable. Pulse oximetry was stable on 100% non-rebreathing mask. The patient was juan-cultured and started on broad spectrum antibiotics, The patient transferred to [facility] for further management. ADMITTING DIAGNOSES: : 1. Sepsis 2. Pneumonia, possibly aspiration versus hospital care-acquired pneumonia. 3. Acute on chronic respiratory failure with hypoxia. 4. Hypertension. 5. Diabetes. 6. Chronic encephalopathy, 7. Lactic acidosis. HOSPITAL STAY: The patient was placed on trach collar to maintain FiO2 above 92%.. FiO2 was titrated accordingly. Pulmonary toilet provided. The patient started on empiric antibiotics. ID consult was requested. Blood culture initially negative. Influenza screen was negative. Chest x-ray showed large right pleural effusion. The patient undergone subsequently thoracentesis, which only yielded 20 mL of of fluid, suspected loculated effusion. CT chest on 11/29 revealed large multiloculated right pleural effusion with multiple dependent air fluid levels, suggestive of possible empyema, Subsequently, cardiothoracic surgery evaluation was requested. Cardiothoracic surgeon recommended to proceed with right video-assisted thoracoscopy with decortication, which was done on 12/01/2015. Aerobic and anaerobic culture obtained during surgery, were negative. Pathology revealed no evidence of malignancy. The patient had a chest tube , and was monitored with daily CXR until chest tube was in. CT chest repeated 12/04 revealed near resolution of right pleural effusion , chest tube in place and small residual hydropneumothorax. Chest tube was eventually discontinued. Chest x-ray after removal of chest tube revealed no evidence of pneumothorax. The patient was in need for bronchoscopy due to suspected mucus plug. Subsequently bronchoscopy was performed which revealed evidence of mucous block and moderate diffuse tracheobronchitis. Mucous plug was lavaged to clear. Prior to discharge, respiratory status stable at the baseline. Strict aspiration precautions were maintained. The patient was able to tolerate tube feeding. Blood sugar was controlled with a sliding scale of insulin. Blood pressure was controlled with calcium channel claire. DVT prophylaxis provided. Tracheostomy care provided. Pulmonary toilet provided. Leukocytosis, resolved. The patient afebrile. Hemoglobin and hematocrit were stable. Antibiotic zhang, ID doctor recommended to discontinue intravenous antibiotic and continue for additional five days. Tobramycin inhalation. No seizure activity while in the hospital . DISCHARGE DIAGNOSES: 1. Sepsis 2. Pneumonia 3. Acute on chronic respiratory failure with hypoxia, resolved. 4. Lactic acidosis. 5. Right loculated pleural effusion, (empyema was ruled out). 6. Status post VATS with decortication and chest tube placement (12/01/16). 7. Mucous plug, status post bronchoscopy (12/06/16). 8. Hypertension. 9. Chronic encephalopathy. 10. Diabetes mellitus. 11. History of traumatic brain injury. 12. Posttraumatic seizure disorder. 13. Dysphagia, G-tube. 14. Right arm cellulitis. DISCHARGE MEDICATIONS: See medication reconciliation list. In need of 5 additional days of Tobramycin inhalation as specified by ID DISCHARGE INSTRUCTIONS: The patient discharged to detention facility, [facility]. Follow up with medical doctor and service desk agent at the facility. Rosendo Wilson M.D. I have been assigned to dictate discharge summary on this account and I was not involved in the patient's management. Beatrice Morrisonsara N.P. DR: PEDRO JOB#: [id number] CC: [id number]
== END 2016-12-12 12:45 | DRG 853 ==
LOC: EDBD 21:27 → EMR 22:22 → 2E 22:45 → EDBEDREQ 11-24 00:30 → 2E 11-24 06:41 → ICU 12-01 14:20 → 2W 12-02 14:46
PROC: 0W993ZZ Drainage of Right Pleural Cavity, Percutaneous Approach (ICD-10-PCS; principal; 2016-11-28)
PROC: 0BQF0ZZ Repair Right Lower Lung Lobe, Open Approach (ICD-10-PCS; 2016-12-01)
PROC: 0BNN0ZZ Release Right Pleura, Open Approach (ICD-10-PCS; 2016-12-01)
PROC: 0BJ08ZZ Inspection of Tracheobronchial Tree, Via Natural or Artificial Opening Endoscopic (ICD-10-PCS; 2016-12-01)
PROC: 0BBN0ZZ Excision of Right Pleura, Open Approach (ICD-10-PCS; 2016-12-01)
PROC: 0BJK4ZZ Inspection of Right Lung, Percutaneous Endoscopic Approach (ICD-10-PCS; 2016-12-01)
PROC: 0W9900Z Drainage of Right Pleural Cavity with Drainage Device, Open Approach (ICD-10-PCS; 2016-12-01)
PROC: 0BDN0ZZ Extraction of Right Pleura, Open Approach (ICD-10-PCS; 2016-12-01)
PROC: 5A1955Z Respiratory Ventilation, Greater than 96 Consecutive Hours (ICD-10-PCS; 2016-12-03)
PROC: 3E1F88Z Irrigation of Respiratory Tract using Irrigating Substance, Via Natural or Artificial Opening Endoscopic (ICD-10-PCS; 2016-12-06)
DX: A41.9 Sepsis, unspecified organism (principal); J96.21 Acute and chronic respiratory failure with hypoxia; R40.20 Unspecified coma; J90 Pleural effusion, not elsewhere classified; J18.9 Pneumonia, unspecified organism; J94.2 Hemothorax; E87.0 Hyperosmolality and hypernatremia; L03.113 Cellulitis of right upper limb; N39.0 Urinary tract infection, site not specified; T17.890A Other foreign object in other parts of respiratory tract causing asphyxiation, initial encounter; E11.8 Type 2 diabetes mellitus with unspecified complications; G40.909 Epilepsy, unspecified, not intractable, without status epilepticus; R65.20 Severe sepsis without septic shock; F07.81 Postconcussional syndrome; I10 Essential (primary) hypertension; R13.10 Dysphagia, unspecified; Z93.1 Gastrostomy status; Z93.0 Tracheostomy status; X58.XXXA Exposure to other specified factors, initial encounter; Y92.129 Unspecified place in nursing home as the place of occurrence of the external cause; J40 Bronchitis, not specified as acute or chronic; Z53.32 Thoracoscopic surgical procedure converted to open procedure
CPT/HCPCS: 31645; 36415; 36600; 71010; 71250; 76942; 80048; 80053; 80202; 81003; 82550; 82553; 82803; 82962; 83605; 84484; 85007; 85025; 85610; 85730; 86710; 86850; 86900; 86901; 86920; 87040; 87070; 87075; 87081; 87181; 87205; 93005; 93970; 94002; 94003; 94150; 94640; 94644; 94664; 94760; J1815; J7620